=== PATIENT | female | born 1965 | race Caucasian/White ===

== ENCOUNTER 2024-04-13 09:54 | Outpatient (OUT) | payer OTHER, SELFPAY ==
[2024-04-13 11:51] LABS: Basophils Percent Auto 1.3 % (0.2-2.0); Eosinophils Percent Auto 1.3 % (0.9-7.0); Hematocrit 39.5 % (36.0-48.0); Hemoglobin 13.6 g/dL (12.0-16.0); Immature Granulocytes Abs Auto 0.01 10^3/uL (0.00-0.03); Immature Granulocytes Pct Auto 0.3 % (0.0-0.5); Lymphocytes Absolute Auto 1.2 10^3/uL (1.2-3.8); Lymphocytes Percent Auto 38.8 % (20.5-60.0); Mean Corpuscular HGB Conc 34.4 g/dL (29.9-35.2); Mean Corpuscular Hemoglobin 30.5 pg (26.7-34.0); Mean Corpuscular Volume 88.6 fL (81.0-99.0); Mean Platelet Volume 10.4 fL (9.5-13.5); Monocytes Absolute Auto 0.2 10^3/uL (0.3-0.8); Monocytes Percent Auto 7.9 % (1.7-12.0); Neutrophils Absolute Auto 1.5 10^3/uL (1.4-6.5); Neutrophils Percent Auto 50.4 % (43.0-75.0); Platelet Count 177 10^3/uL (150-450); Red Blood Count 4.46 10^6/uL (4.20-5.40); Red Cell Distribution Width 12.2 % (11.0-15.0)
[2024-04-13 12:43] LABS: Estimated Average Glucose 94 mg/dL; Glycohemoglobin A1C 4.9 % (4.5-6.2)
[2024-04-13 12:57] LABS: Alanine Aminotransferase 28 U/L (14-59); Albumin Globulin Ratio 1.2; Albumin Level 3.9 g/dL (3.4-5.0); Alkaline Phosphatase 71 U/L (46-116); Aspartate Amino Transferase 18 U/L (15-37); BUN Creatinine Ratio 17.2; Bilirubin Total 0.9 mg/dL (0.2-1.0); Carbon Dioxide 25.7 mmol/L (21.0-32.0); Chloride 107 mmol/L (98-107); Estimated GFR (African America >60 (>=60); Estimated GFR (Non-African Ame >60 (>=60); Globulin 3.2 g/dL; Glucose 89 mg/dL (74-106); Potassium 3.7 mmol/L (3.5-5.1); Sodium 142 mmol/L (136-145); Thyroid Stimulating Hormone 1.361 uIU/mL (0.358-3.740); Total Protein 7.1 g/dL (6.4-8.2)
[2024-04-14 04:08] LABS: Estradiol 5.7 pg/mL (.); FSH 56.9 mIU/mL (.); Progesterone 0.1 ng/mL (.); Prolactin 4.2 ng/mL (3.6-25.2)
== END 2024-04-13 09:55 | disposition home or self-care (01) ==
PROVIDERS: PCP Family Medicine; Visit Provider Family Medicine
DX: Z00.00 Encounter for general adult medical examination without abnormal findings (principal); L65.9 Nonscarring hair loss, unspecified; I10 Essential (primary) hypertension; I49.8 Other specified cardiac arrhythmias; E78.00 Pure hypercholesterolemia, unspecified; Z12.11 Encounter for screening for malignant neoplasm of colon; R53.82 Chronic fatigue, unspecified; R73.01 Impaired fasting glucose
CPT/HCPCS: 36415; 80053; 82306; 82607; 82670; 82746; 83001; 83036; 84144; 84146; 84436; 84443; 84481; 85025

== ENCOUNTER 2024-05-02 11:13 | Outpatient (OUT) | payer OTHER, SELFPAY ==
--- OUTSIDE RECORDS SUMMARY | 2024-05-02 11:35 | XMS_ITS | CCD ---
Author Organization [facility] Care Team Providers Care Concession Stand Attendant Name Role Phone Tolu Harris Unavailable Bj Wilson MD Primary Care Provider [phone] Bj Wilson MD Unavailable CONG ., DR LORENZO Primary Care Unavailable HOY ., DR LORENZO Consulting Unavailable HOY ., DR LORENZO Admitting Unavailable HOY ., DR LORENZO Attending Unavailable KARASIK ., DR FOSTER Consulting Unavailabl e KARASIK ., DR FOSTER Attending Unavailabl e HOY ., DR LORENZO Primary Care Unavailable KARASIK ., DR FOSTER Admitting Unavailabl e HOY ., DR LORENZO Admitting Unavailable HOY ., DR LORENZO Primary Care Unavailable HOY ., DR LORENZO Consulting Unavailable HOY ., DR LORENZO Attending Unavailable HOY ., DR LORENZO Attending Unavailable HOY ., DR LORENZO Primary Care Unavailable HOY ., DR LORENZO Consulting Unavailable HOY ., DR LORENZO Admitting Unavailable ZIEBER, DR JOHN Zamudio Consulting Unavailable HOY ., DR LORENZO Primary Care Unavailable HOY ., DR LORENZO Consulting Unavailable ROSY CHING Attending Unavailable ROSY CHING Admitting Unavailable TWILA, DR NORMA García Consulting Unavailable ROSY CHING Consulting Unavailable KARCASSIDYK ., DR FOSTER Admitting Unavailabl e KARASIK ., DR FOSTER Consulting Unavailabl e KARASIK ., DR FOSTER Attending Unavailabl e HOY ., DR LORENZO Primary Care Unavailable ZIEBER, DR JOHN Zamudio Consulting Unavailable HOY ., DR LORENZO Attending Unavailable HOY ., DR LORENZO Primary Care Unavailable HOY ., DR LORENZO Consulting Unavailable HOY ., DR LORENZO Admitting Unavailable HOY ., DR LORENZO Attending Unavailable HOY ., DR LORENZO Primary Care Unavailable HOY ., DR LORENZO Consulting Unavailable HOY ., DR LORENZO Admitting Unavailable HOY ., DR LORENZO Attending Unavailable HOY ., DR LORENZO Primary Care Unavailable WEST, DR NORMA García Consulting Unavailable HOY ., DR LORENZO Admitting Unavailable HOY ., DR LORENZO Attending Unavailable HOY ., DR LORENZO Admitting Unavailable HOY ., DR LORENZO Primary Care Unavailable HOY ., DR LORENZO Consulting Unavailable HOY ., DR LORENZO Primary Care Unavailable REINECK, DR JACIEL Ochoa Attending Unavailabl e YADY, DR JACIEL Ochoa Admitting Unavailabl e YADY, DR JACIEL Ochoa Consulting Unavailabl Bj Duckworth MD Primary Care Provider [phone] Bj Wilson MD Unavailable NONE, XXXX Primary Care Physician Unavailab BJ Schwartz Primary Care Unavailable MARIAMA NOONAN Attending Unavailable Bj Wilson Primary Care Physician [phone] Amber, Radha J Attending Unavailable Amber, Radha J Admitting Unavailable Amber, Radha J Attending Unavailable Amber, Radha J Admitting Unavailable Amber, Radha J Admitting Unavailable Amber, Radha J Attending Unavailable Amber, Radha J Admitting Unavailable Amber, Radha J Attending Unavailable Amber, Radha J Referring Unavailable Allergies Allergy Classification Reported Allergen(s) Allergy Type Date of Onset Reaction(s) Facility (4 sources) Morphine; Translations: [MORPHINE] Drug Allergy 01-07-2021 Itching [facility] Work Phone: (1 source) Morphine Drug Allergy 12-03-2020 [facility] Medications Current Medications Medication Drug Class(es) Dates Sig (Normalized) Sig (Original) Vitamin D (1 source) Vitamin D Active Completed/Discontinued Medications Medication Drug Class(es) Dates Sig (Normalized) Sig (Original) alendronic acid 35 mg oral tablet (2 sources) Bisphosphonate Start: 07-17-2021 take 1 tablet by mouth every week alendronate (FOSAMAX) 35 mg tablet Take 35 mg by mouth one time a week. 0 07/17/2021 Active Comment on above: Take 35 mg by mouth one time a week. amitriptyline hydrochloride 10 mg oral tablet (2 sources) Tricyclic Antidepressant Start: 07-31-2021 End: 07-21-2023 take 1 tablet by mouth once daily at bedtime amitriptyline (ELAVIL) 10 mg tablet Take 1 tablet by mouth daily at bedtime. 30 tablet 11 07/31/2021 07/21/2023 Discontinued Comment on above: Take 1 tablet by stephen th daily at bedtime. aspirin 81 mg delayed release oral tablet (4 sources) Platelet Aggregation Inhibitor, Nonsteroidal Anti-inflammatory Drug take 1 tablet by mouth once daily aspirin, enteric coated (ASPIRIN, ENTERIC COATED) 81 mg EC tablet Take 81 mg by mouth once daily. 0 Active Aspirin 81 Activ e Comment on above: Take 81 mg by mouth once daily. Calcium (3 sources) Phosphate Binder, Calcium take 1 tablet by mouth once daily CALCIUM ORAL Take 1 tablet by mouth once daily. 0 Active Comment on above: Take 1 tablet by stephen th once daily. cholecalciferol 0.125 mg oral capsule (3 sources) Vitamin D Start: 11-13-19 21 take 1 capsule by mouth once daily Cholecalciferol, Vitamin D3, 125 mcg (5,000 unit) cap Take 5,000 Units by mouth once daily. 0 11/13/2020 Active Comment on above: Take 5,000 Units by mouth once daily. indomethacin 25 mg oral capsule (3 sources) Nonsteroidal Anti-inflammatory Drug Start: 07-31-20 21 indomethacin (INDOCIN) 25 mg capsule Take 1-3 caps every 8 hours as needed for head pain. Take with food. Do not use with other NSAIDs or steroids. 30 capsule 5 07/31/2021 Active take 1 capsule by mo ut every twelve hours Indomethacin 25 MG 1 capsule with food o r milk Orally Twice a day Active Comment on above: Take 1-3 caps every 8 hours as needed for head pain. Take with food. Do not use with other NSAIDs or steroids. 24 hr PARoxetine hydrochloride 12.5 mg extended release oral tablet (4 sources) Serotonin Reuptake Inhibitor Start: 1 take 1 tablet by mouth once daily PARoxetine ER (PAXIL CR) 12.5 mg 24 hr tablet Take 12.5 mg by mouth once daily. 0 12/16/2020 Active Comment on above: Take 12.5 mg by mout h once daily. tiZANidine 4 mg oral tablet (3 sources) Central alpha-2 Adrenergic Agonist Start: 1 tiZANidine (ZANAFLEX) 4 mg tablet Take 4 mg by mouth as needed. 0 12/30/2020 Active Comment on above: Take 4 mg by mouth a s needed. Problems Active Problems Problem Classification Problem Date Documented Date Episodic/Chronic Aortic; peripheral; and visceral artery aneurysms (4 sources) Dissection of carotid artery; Translations: [Dissection of carotid artery] Onset: 01-23-2021 01-23-2021 Chronic Cardiac dysrhythmias (4 sources) Palpitations; Translations: [PALPITATIONS] Onset: 12-22-2022 Episodic Disorders of lipid metabolism (1 source) Hyperlipidemia, unspecified; Translations: [HYPERLIPIDEMIA UNSPECIFIED] Onset: 03-13-2022 Chronic Essential hypertension (1 source) Essential (primary) hypertension; Translations: [ESSENTIAL PRIMARY HYPERTENSION] Onset: 02-24-2022 Chronic Headache; including migraine (5 sources) New daily persistent headache; Translations: [New daily persistent headache (NDPH)] Onset: 01-23-2021 01-23-2021 Chronic Immunizations and screening for infectious disease (2 sources) Encounter for screening for human papillomavirus (HPV); Translations: [Encounter for immunization] Onset: 02-24-2022 Episodic Mood disorders (1 source) Major depressive disorder, single episode, unspecified; Translations: [CECILIA DEPRESS D/O SINGLE EPIS UNS] Onset: 02-24-2022 Chronic Nutritional deficiencies (1 source) Vitamin D deficiency, unspecified; Translations: [VITAMIN D DEFICIENCY UNSPECIFIED] Onset: 03-13-2022 Chronic Other and unspecified benign neoplasm (3 sources) Neoplasm of meninges; Translations: [Benign neoplasm of meninges, unspecified] 01-07-2021 Chronic Other screening for suspected conditions (not mental disorders or infectious disease) (8 sources) Encounter for screening for malignant neoplasm of cervix; Translations: [Encounter for screening mammogram for malignant neoplasm of breast] Onset: 04-27-2022 Episodic Unclassified (3 sources) CONTACT W/AND (SUSP) EXPOS COVID-19; Translations: [CONTACT W/AND (SUSP) EXPOS COVID-19] Onset: 02-13-2022 Viral infection (1 source) COVID-19; Translations: [COVID-19] Onset: 07-31-2022 Past or Other Problems Problem Classification Problem Date Documented Da te Episodic/Chronic Abdominal pain (8 sources) Pelvic and perineal pain; Translations: [Right lower quadrant pain] Onset: 05-22-2022 Episodic Deficiency and other anemia (1 source) Anemia, unspecified; Translations: [ANEMIA UNSPECIFIED] Onset: 03-13-2022 Episodic E Codes: Cut/pierceb (1 source) Other foreign body or object entering through skin, initial encounter; Translations: [OTH FB/OBJ ENTERING THRU SKIN INIT] Onset: 02-24-2022 Episodic Fever of unknown origin (1 source) Fever, unspecified; Translations: [FEVER UNSPECIFIED] Onset: 02-13-2022 Episodic Genitourinary symptoms and ill-defined conditions (1 source) Personal history of urinary (tract) infections; Translations: [PERS HX URINARY TRACT INFECTIONS] Onset: 02-24-2022 Episodic Headache; including migraine (16 sources) Headache disorder; Translations: [Other headache syndrome] Onset: 01-23-2021 01-23-2021 Episodic Malaise and fatigue (1 source) Other fatigue; Translations: [OTHER FATIGUE] Onset: 03-13-2022 Episodic Open wounds of extremities (4 sources) Puncture wound with foreign body of right middle finger without damage to nail, initial encounter; Translations: [PUNCT FB RT MID FNGR NO DMG NL INIT] Onset: 02-21-2022 Episodic Other aftercare (1 source) terminal carman (current) use of aspirin; Translations: [PRISON CURRENT USE OF ASPIRIN] Onset: 02-24-2022 Episodic Other aftercare (1 source) Other technician terminal and repeater (current) drug therapy; Translations: [OTH PRISON CURRENT DRUG THERAPY] Onset: 02-24-2022 Episodic Other connective tissue disease (1 source) Ganglion, left wrist Onset: 09-25-2021 Resolved: 09-25-2021 Episodic Other non-traumatic joint disorders (1 source) Pain in left wrist Onset: 09-25-2021 Resolved: 09-25-2021 Episodic Other non-traumatic joint disorders (4 sources) Pain in right hip; Translations: [PAIN IN RIGHT HIP] Onset: 05-21-2022 Episodic Residual codes; unclassified (1 source) Family history of malignant neoplasm of trachea, bronchus and lung; Translations: [FAM HX MALIG NEOPLSM TRACH BRON LNG] Onset: 04-29-2022 Episodic Residual codes; unclassified (1 source) Family history of malignant neoplasm of other organs or systems; Translations: [FAM HX MALIG NEOPLASM OTH ORGN/SYS] Onset: 04-29-2022 Episodic Residual codes; unclassified (1 source) Pain, unspecified; Translations: [PAIN UNSPECIFIED] Onset: 02-13-2022 Episodic Spondylosis; intervertebral disc disorders; other back problems (3 sources) Cervico-occipital neuralgia; Translations: [Occipital neuralgia] Onset: 01-23-2021 01-23-2021 Episodic Unclassified (1 source) CONTACT W/AND (SUSP) EXPOS COVID-19; Translations: [CONTACT W/AND (SUSP) EXPOS COVID-19] Onset: 07-30-2022 Results Test Name Value Interpretation Reference Range Facility PAP [id number] 02-01-2024 Cytology report Cyto stain Doc (Cvx/Vag) Note Invalid Interpretation Code [facility] Comment on above: Result Comment: TEST S RESULT FLAG UNITS REF RANGE LAB Clinician Provided Cytology Information Source.............Endocervix LMP / Prev Treat...None Other..............Other No. of containers..01 ThinPrep Vial DIAGNOSIS: 01 NEGATIVE FOR INTRAEPITHELIAL LESION OR MALIGNANCY. CELLULAR CHANGES ASSOCIATED WITH ATROPHY ARE PRESENT. Specimen adequacy: 01 Satisfactory for evaluation. Endocervical component may not be distinguished in cases of atrophy. Performed by: Radha Mendenhall Sales Product Manager (ASC) . 01 Note: Note 01 The Pap smear is a screening test designed to aid in the detection of premalignant and malignant conditions of the uterine cervix. It is not a diagnostic procedure and should not be used as the sole means of detecting cervical cancer. Both false-positive and false-negative reports do occur. Test Methodology: Note 01 This liquid based ThinPrep(R) pap test was screened with the use of an image guided system. FLAG LEGEND: L-Low Normal,H-High Normal,LL-Alert Low,HH-Alert High <-Panic Low,>-Panic High,A-Abnormal,AA-Critical Abnormal Performed at: [address] [id number] Suzan Bauer MD, Performed By: #### 3 [id number] #### [facility] [address] [place] [address] HPV 16+18+31+33+35+39+45+ 51+52+56+58+59+66+68 DNA Probe+sig amp Ql (Cvx) Negative Invalid Interpretation Code Negative [facility] Comment on above: Result Comment: This nucleic acid amplification test detects fourteen high-risk HPV types (16,18,31,33,35,39,45,51,52,56,58,59,66,68) without differentiation. Performed at: [address] [id number] MD Juancarlos Mares Performed at: =[facility] [id number] MD Juancarlos Mares Performed By: #### 3 [id number] #### [facility] [address] [place] [address] PAP [id number] 01-26-2024 Collection Technique BRUSH-SPATULA Normal F [facility] Comment on above: Performed By: #### 3 [id number] #### [facility] [address] [place] [address] Gynecological Body Site ENDOCERVIX Normal [facility] Comment on above: Performed By: #### 3 [id number] #### [facility] [address] [facility] [place] [address] Other Patient Information [id number] Normal [facility] Comment on above: Performed By: #### 3 [id number] #### [facility] [address] [place] [address] Previous Cytology Negative Normal [facility] Comment on above: Performed By: #### 3 [id number] #### [facility] [address] [facility] [place] [address] Previous Treatment NONE Normal [facility] Comment on above: Performed By: #### 3 [id number] #### [facility] [address] [facility] [place] [address] Physician Orderon 01-26-2024 Physician Order [id number] 7#1.00TIFF Normal [facility] CHEMISTRYOrdered By: SYSTEM SYSTEM on 08-23-2023 25-hydroxyvitamin D3 [Mass/Vol] 54.9 ng/mL Normal 30.0 - 100.0 ng/mL [facility] Comment on above: Interpretive Data: Vitamin D deficiency has been defined as a level of serum 25-OH vitamin D less than 20 ng/mL (1,2) by the [place] [employer] and an Endocrine Society practice guideline. The Endocrine Society further defined vitamin D insufficiency as a level between 21 and 29 ng/mL (2). 1. IOM ([place] of [employer]). 2010. Dietary reference intakes for calcium and D. [place]: The National Academies Press. 2. Jamime MF, Matthew NC, Geovanna STALEY, et al. Evaluation, treatment, and prevention of vitamin D deficiency: an Endocrine Society clinical practice guideline. JCEM. 2010; 96 (7):1911-30. Calcium [Mass/Vol] 9.6 mg/dL Normal 8.9 - 11. 1 mg/dL [facility] Cholesterol [Mass/Vol] 257 mg/dL High 120 - 200 mg/dL [facility] Cholesterol in HDL [Mass/Vol] 43 mg/dL Invalid Interpretation Code [facility] Comment on above: Interpretive Data: H DL > or equal to 60 mg/dL: Low cardiovascular risk HDL < 40 mg/dL : High cardiovascular risk Cholesterol in LDL [Mass/Vol] 175 mg/dL High <=129mg/dL [facility] Cholesterol in VLDL [Mass/Vol] 45 mg/dL High 7 - 40 mg/dL [facility] Creatinine [Mass/Vol] 0.9 mg/dL Normal 0.5 - 1.3 mg/dL [facility] GFR/1.73 sq M.predicted among non-blacks MDRD (S/P/Bld) [Vol rate/Area] 75 mL/min/1.73 m2 Normal >=59mL/min/1. 73 m2 [facility] Comment on above: Interpretive Data: C hronic kidney disease could be indicated at eGFR's of less than 60 mL/min/1.73m2. Kidney failure is indicated at less than 15 mL/min/1.73m2. Glucose post fast [Mass/Vol] 92 mg/dL Normal 55 - 99 mg/dL [facility] Triglyceride [Mass/Vol] 224 mg/dL High <=149mg/dL [facility] TSH Qn 2.36 m[IU]/L Normal 0.34 - 5.60 mcIU/mL [facility] Calciumon 08-23-2023 Calcium [Mass/Vol] 9.6 mg/dL Normal 8.9-11.1 [facility] Comment on above: Performed By: #### 2 [id number], [id number], 8385519, [id number], [id number], [id number], 9267031 #### [facility] [address] [place] [address] Consent for Treatmenton 08-08 Consent for Treatment [id number] #1.00TIFF Normal [facility] Creatinineon 08-23-2023 Creatinine [Mass/Vol] 0.9 mg/dL Normal 0.5-1.3 [facility] Comment on above: Performed By: #### 2 363760, [id number], 7596027, 96022422, [id number], [id number], [id number] #### [facility] [address] [place] [address] Glu Fastingon 08-23-2023 Glucose [Mass/Vol] 92 mg/dL Normal 55-99 [facility] Comment on above: Performed By: #### 2 272643, 6709372, 9126506, [id number], [id number], 6741094, [id number] #### [facility] [address] [place] [address] Lipid Panelon 08-23-2023 Cholesterol [Mass/Vol] 257 mg/dL High 120-200 [facility] Comment on above: Performed By: #### 2 309431, 7198407, 0232345, [id number], [id number], 7472094, 0348267 #### [facility] [address] [place] [address] Cholesterol in HDL [Mass/Vol] 43 mg/dL Invalid Interpretation Code [facility] Comment on above: Result Comment: HDL > or equal to 60 mg/dL: Low cardiovascular risk HDL < 40 mg/dL : High cardiovascular risk Performed By: #### 2 082324, [id number], 5904511, 16271268, [id number], 0331707, 9065258 #### [facility] [address] [place] [address] Cholesterol in LDL [Mass/Vol] 175 mg/dL High <=129 [facility] Comment on above: Performed By: #### 2 648451, 7750975, 9196409, 79352441, [id number], 5810235, 4005842 #### [facility] [address] [place] [address] Cholesterol in VLDL [Mass/Vol] 45 mg/dL High 7-40 [facility] Comment on above: Performed By: #### 2 441096, 6534599, 8929706, 83943152, [id number], 7966636, 5294584 #### [facility] [address] [place] [address] Triglyceride [Mass/Vol] 224 mg/dL High <=149 [facility] Comment on above: Performed By: #### 2 177966, 5408269, 7638065, [id number], [id number], 0769210, 4084563 #### [facility] [address] [place] [address] Physician Orderon 08-23-2023 Physician Order [id number] 7#1.00TIFF Normal [facility] TSHon 08-23-2023 TSH Qn 2.36 m[IU]/L Normal 0.34-5.60 [facility] Comment on above: Performed By: #### 2 789594, 8159837, 4322409, 07232132, [id number], 3002146, 7406419 #### [facility] [address] [place] [address] Vitamin D 25 Hydroxyon 08-23 25-hydroxyvitamin D3 [Mass/Vol] 54.9 ng/mL Normal 30.0-100.0 [facility] Comment on above: Result Comment: Vit min D deficiency has been defined as a level of serum 25-OH vitamin D less than 20 ng/mL (1,2) by the [place] [employer] and an Endocrine Society practice guideline. The Endocrine Society further defined vitamin D insufficiency as a level between 21 and 29 ng/mL (2). 1. IOM ([place] [employer]). 2010. Dietary reference intakes for calcium and D. [place]: The National Academies Press. 2. Jammie MF, Matthew NC, Geovanna STALEY, et al. Evaluation, treatment, and prevention of vitamin D deficiency: an Endocrine Society clinical practice guideline. JCEM. 2011 May; 96 (7):1911-30. Performed By: #### 2 [id number], 5743360, 0046190, 00593654, [id number], 3635347, 3426107 #### [facility] [address] [place] [address] eGFRon 08-23-2023 GFR/1.73 sq M.predicted among non-blacks MDRD (S/P/Bld) [Vol rate/Area] 75 mL/min/1.73 m2 Normal >=59 [facility] Comment on above: Order Comment: Order added by Discern Expert. Result Comment: Sheriff Sergeant jeanna kidney disease could be indicated at eGFR's of less than 60 mL/min/1.73m2. Kidney failure is indicated at less than 15 mL/min/1.73m2. Performed By: #### 2 672797, 7231526, 2961873, 24477865, [id number], 9967578, 3213520 #### [facility] [address] [place] [address] MA Mamm Screen w/CAD if perf and 3D Bilon 08-09-2023 MA Mamm Screen w/CAD if perf and 3D Shakeel Exam Date/Time: 08/04/2023 08:44 EDT Reason for Exam: Z12.31 Report IMPRESSION: BIRADS 2 BENIGN FINDINGS, NORMAL INTERVAL FOLLOW-UP.12 MONTH RECALL. CLINICAL HISTORY: Z12.31. COMPARISON: 04/27/2022. COMMENT: Routine views and tomosynthesis views of both breasts were obtained. The breasts are heterogeneously dense, which may obscure small masses. There is an ovoid nodule with smoothly rounded margin in the mid left breast, stable in appearance. A nodular density that was present in the anterior mid right breast on the prior exam is no longer visualized. No dominant breast mass nor neoplastic calcifications are noted. The examination was reviewed with Computer Aided Detection. Breast Density: Yes Mammography is very important to your health. The current [employer] and National Comprehensive Cancer Network guidelines recommends annual mammography beginning at age 40. This facility utilizes a reminder system to ensure all patients receive reminder notifications at the appropriate time based on the recommendations of this exam. Board Certified Radiologists. Accredited by the ACR and FDA. Ordering Provider: Radah Clark FINAL REPORT Dictated: 08/09/2023 2:12 pm Cliff Zuleta M.D. Signed (Electronic Signature): 08/09/2023 2:12 pm Signed by: Cliff Zuleta M.D. Transcribed by: ERIK Technologist: [facility] Assessment: BI-RADS Category 2-Benign finding Recommendation: Normal interval follow-up Normal [facility] BD Bone Density DEXAon 08-04 BD Bone Density DEXA Exam Date/Time: 08/04/2023 09:04 EDT Reason for Exam: Z13.820 Report IMPRESSION: The bone density measurements of the lumbar spine indicate OSTEOPENIA and places the patient at a mild to moderate increased risk for fracture. There may be a future risk of developing osteoporosis. Recommend follow-up exam in one year, sooner if clinically necessary. CLINICAL HISTORY: bone density evaluation COMPARISON: NONE. FINDINGS: Bone density measurements for the Left femoral neck are BMD 0.938g/cm2 Tscore -0.7 Age-matched Z score 0.2, Normal Bone density measurements for the Right femoral neck are BMD 0.921g/cm2 Tscore -0.8 Age-matched Z score 0.1, Normal Bone density measurements for the Lumbar spine are BMD 0.909g/cm2 Tscore -2.3 Age-matched Z score -1.5, Osteopenia FRAX SCORE 10 year probability of fracture: Major osteoporotic, 5.8% Hip fracture, 0.2% Note World Health Organization definition of osteoporosis and osteopenia for women: Normal = T score at or above -1.0 SD Osteopenia = T score between -1.0 and -2.5 SD Osteoporosis = T score at or below -2.5 SD Treatment recommendations per The Bone Health and Osteoporosis Foundation (BHOF): Consider initiating pharmacologic treatment in postmenopausal women and men \X2265\ 50 years of age who have the following: \X2013\Primary fracture prevention: \X25CB\T-score \X2264\ \X2212\ 2.5 at the femoral neck, total hip, lumbar spine, 33% radius (some uncertainty with existing data) by DXA. Report \X25CB\Low bone mass (osteopenia: T-score between \X2212\ 1.0 and \X2212\ 2.5) at the femoral neck or total hip by DXA with a 10-year hip fracture risk \X2265\ 3% or a 10-year major osteoporosis-related fracture risk \X2265\ 20% (i.e., clinical vertebral, hip, forearm, or proximal humerus) based on the [place]-adapted FRAX\XAE\ model. \X2013\Secondary fracture prevention: \X25CB\Fracture of the hip or vertebra regardless of BMD [4, 5]. \X25CB\Fracture of proximal humerus, pelvis, or distal forearm in persons with low bone mass (osteopenia: T-score between \X2212\ 1.0 and \X2212\ 2.5). The decision to treat should be individualized in persons with a fracture of the proximal humerus, pelvis, or distal forearm who do not have osteopenia or low BMD [12, 13]. Ordering Provider: Radha Clark FINAL REPORT Dictated: 08/04/2023 4:25 pm Harry Jenkins MD, V. Signed (Electronic Signature): 08/04/2023 4:25 pm Signed by: Harry Jenkins MD, V. Transcribed by: ERIK Technologist: YONNY Normal [facility] Consent for Treatmenton 07-10 Consent for Treatment [id number] #1.00CD:127 Normal [facility] RAD - Mammography Reporton 0 08-03-2023 RAD - Mammography Report [id number]# 1.00CD:127 Normal [facility] PAP [id number] 07-26-2023 Cytology report Cyto stain Doc (Cvx/Vag) Note Invalid Interpretation Code [facility] Comment on above: Result Comment: TEST S RESULT FLAG UNITS REF RANGE LAB Clinician Provided Cytology Information Source.............Endocervix LMP / Prev Treat...BUF=[id number] No. of containers..01 ThinPrep Vial DIAGNOSIS: 01 NEGATIVE FOR INTRAEPITHELIAL LESION OR MALIGNANCY. Specimen adequacy: 01 Satisfactory for evaluation. Endocervical and/or squamous metaplastic cells (endocervical component) are present. Performed by: 01 Liz Viera, Sales Product Manager (ASCP) . 01 Note: Note 01 The Pap smear is a screening test designed to aid in the detection of premalignant and malignant conditions of the uterine cervix. It is not a diagnostic procedure and should not be used as the sole means of detecting cervical cancer. Both false-positive and false-negative reports do occur. Test Methodology: Note 01 This liquid based ThinPrep(R) pap test was screened with the use of an image guided system. FLAG LEGEND: L-Low Normal,H-High Normal,LL-Alert Low,HH-Alert High <-Panic Low,>-Panic High,A-Abnormal,AA-Critical Abnormal Performed at: [address] [id number] Suzan Bauer MD, Performed By: #### 3 [id number] #### [facility] [address] [place] [address] HPV 16+18+31+33+35+39+45+ 51+52+56+58+59+66+68 DNA Probe+sig amp Ql (Cvx) Negative Invalid Interpretation Code Negative [facility] Comment on above: Result Comment: This nucleic acid amplification test detects fourteen high-risk HPV types (16,18,31,33,35,39,45,51,52,56,58,59,66,68) without differentiation. Performed at: WB [address] [id number] MD Juancarlos Mares Performed at: =G [address] [id number] MD Juancarlos Mares Performed By: #### 3 [id number] #### [facility] [address] [place] [address] [place] [address] PAP [id number] 07-21-2023 Collection Technique BRUSH-SPATULA [facility] Comment on above: Performed By: #### 3 [id number] #### [facility] [address] [place] [address] Gynecological Body Site ENDOCERVIX Normal [facility] Comment on above: Performed By: #### 3 [id number] #### [facility] [address] [place] [address] LMP or Menopause Date [id number] Invalid Interpretation Code [facility] Comment on above: Performed By: #### 3 [id number] #### [facility] [address] [place] [address] Previous Cytology Negative Normal [facility] Comment on above: Performed By: #### 3 [id number] #### [facility] [address] [place] [address] Previous Treatment NONE Normal [facility] Comment on above: Performed By: #### 3 [id number] #### [facility] [address] [place] [address] Physician Orderon 07-21-2023 Physician Order [id number] #1.00CD:127 Normal [facility] Physician Order [id number]# 1.00CD:127 Normal [facility] PAP ACOG PANEL 2: 30 to 65on 12-01-2022 . . [facility] Comment on above: Result Comment: Perf ormed at: WB Performed By: #### 4 [id number] #### [facility] [address] [address] [address] Eugenia Osei Age Gdln ACOG Testing - [facility] Comment on above: Performed By: #### 4 [id number] #### [facility] [address] [address] [address] Eugenia Osei DIAGNOSIS: Comment [facility] Comment on above: Result Comment: NEGA TIVE FOR INTRAEPITHELIAL LESION OR MALIGNANCY. CELLULAR CHANGES ASSOCIATED WITH ATROPHY ARE PRESENT. Performed at: WB Performed By: #### 4 [id number] #### [facility] [address] [place] [address] Dr. Eugenia Osei HPV Aptima Positive Abnormal Negative [facility] Comment on above: Result Comment: This nucleic acid amplification test detects fourteen high-risk HPV types (16,18,31,33,35,39,45,51,52,56,58,59,66,68) without differentiation. Performed at: =G Performed By: #### 4 [id number] #### [facility] [address] [place] [address] Dr. Eugenia Osei HPV Genotype 16 Negative Normal Negative [facility] Comment on above: Performed By: #### 4 [id number] #### [facility] [address] [place] [address] Dr. Eugenia Osei HPV Genotype 18,45 Negative Normal Negative [facility] Comment on above: Performed By: #### 4 [id number] #### [facility] [address] [place] [address] Dr. Eugenia Osei HPV Genotype Reflex Comment Normal [facility] Comment on above: Result Comment: Obi cali, see HPV Genotype results. Performed at: WB Performed By: #### 4 [id number] #### [facility] [address] [place] [address] Dr. Eugenia Osei Methodology: Comment Normal [facility] Comment on above: Result Comment: This liquid based ThinPrep(R) pap test was screened with the use of an image guided system. Performed at: WB Performed By: #### 4 [id number] #### [facility] [address] [place] [address] Dr. Eugenia Osei Note: Comment Normal [facility] Comment on above: Result Comment: The Pap smear is a screening test designed to aid in the detection of premalignant and malignant conditions of the uterine cervix. It is not a diagnostic procedure and should not be used as the sole means of detecting cervical cancer. Both false-positive and false-negative reports do occur. . Performed at: WB Performed By: #### 4 [id number] #### [facility] [address] [address] [address] Eugenia Osei Performed by: Comment Normal [facility] Comment on above: Result Comment: Amol Baker Sales Product Manager (ASCP) Performed at: WB Performed By: #### 4 [id number] #### [facility] [address] [place], [place] [address] Dr. Eugenia Osei Specimen adequacy: Comment Normal [facility] Comment on above: Result Comment: Sati sfactory for evaluation. Endocervical component may not be distinguished in cases of atrophy. Performed at: WB Performed By: #### 4 [id number] #### [facility] [address] [address] [address] Eugenia Osei Covid-19 PCR ([facility])on 07-10 SARS-CoV-2 (COVID-19) RNA KELLI+probe Ql (Unsp spec) Detected Critically abnormal NOT DETECTED [facility] Comment on above: Result Comment: This test is not yet approved or cleared by the [place] FDA. When there are no FDA-approved or cleared tests available, and other criteria are met, FDA can make tests available under an emergency access mechanism called an Emergency Use Authorization (EUA). The EUA for this test is supported by the [employer] of Health and Human Service's (HHS's) declaration that circumstances exist to justify the emergency use of in vitro diagnostics for the detection and/or diagnosis of the virus that causes COVID-19. This EUA will remain in effect (meaning this test can be used) for the duration of the COVID-19 declaration justifying emergency of IVDs, unless it is terminated or revoked by FDA (after which the test may no longer be used). Performed By: #### C VDTBH #### [facility] [address] [id number] Eugenia Oesi US PELVIS AND TRANSVAGon US PELVIS AND TRANSVAG EXAMINATION: US PELVIS AND TRANSVAG HISTORY: Pain in pelvis for 3 weeks COMPARISON: CT abdomen pelvis 05/22/2022 TECHNIQUE: Transabdominal and transvaginal sonographic examination. FINDINGS: UTERUS: Normal size and appearance. Uterus size: 6.5 x 4.2 x 2.7 cm ENDOMETRIUM: Normal homogeneous appearance. Endometrial thickness: 2 mm RIGHT OVARY: Not seen. Loops of fluid-filled, but not significantly dilated bowel within right adnexa. LEFT OVARY: Contains a 1.3 cm cyst. Blood flow present within ovary on color Doppler. Ovary size: 2.0 x 1.9 x 1.9 cm CUL-DE-SAC: Unremarkable. No significant free fluid. BLADDER: Unremarkable. OTHER: None. IMPRESSION: 1. No specific findings to account for patient's symptoms. 2. Patient describes right pelvic pain. The right ovary could not be identified. There are a few fluid-filled, but not significantly distended loops of bowel within right adnexa. Consider follow-up CT imaging if symptoms persist, although the 05/22/2022 CT study of the abdomen and pelvis was unremarkable. Electronically authenticated by: JOHN HAJI Date: 2022-05-31 08:32 Normal [facility] [address] ABD/PELV WO W CONon 05-22 CT ABD/PELV WO W CON EXAMINATION: CT ABD/PELV WO W CON, 05/22/2022 1:47 PM EDT HISTORY: Right lower quadrant pain , hematuria COMPARISON: 12/03/2020 TECHNIQUE: CT scan of the abdomen and pelvis was performed without and with IV contrast. CT dose reduction technique was used, including Automated Exposure Control. FINDINGS: LUNG BASES: No visible pulmonary or pleural disease. LIVER: No enlargement, atrophy, abnormal density, or significant focal lesion. BILIARY: No dilatation or calcification. PANCREAS: No lesion, fluid collection, ductal dilatation, or atrophy. SPLEEN: No enlargement or focal lesion. ADRENALS: No mass or enlargement. KIDNEYS: No mass, obstruction, or calcification. BOWEL/MESENTERY: No visible mass, obstruction, or bowel wall thickening. AORTA/VASCULAR: No aneurysm or dissection. RETROPERITONEUM: No mass or adenopathy. LYMPH NODES: No adenopathy. URINARY BLADDER: No visible focal wall thickening, lesion, or calculus. PELVIC ORGANS: No visible mass. Pelvic organs appropriate for patient age. ABDOMINAL WALL: No mass or hernia. BONES: No bony lesion or fracture. OTHER: Negative. IMPRESSION: No obstructive uropathy No acute intraperitoneal abnormality Electronically authenticated by: NORMA MATTSON Date: 2022-05-22 15:52 Normal [facility] CULTURE URINEon 05-22-2022 CULTURE URINE Culture Observations: NO GROWTH. Normal [facility] Comment on above: Performed By: #### U RCX ####[facility] [address] [address]. Eugenia Osei UA RANDOM W/MICROSCOPICon BACTERIA NONE SEEN Normal NONE SEEN [facility] Comment on above: Performed By: #### U AMIC #### [facility] [address] [address] [address] Eugenia Osei Bilirubin Ql (U) Negative Normal NEGATIVE [facility] Comment on above: Performed By: #### U AMIC #### [facility] [address] [place] [address] Dr. Eugenia Osei CAST NONE SEEN Normal NONE SEEN [facility] Comment on above: Performed By: #### U AMIC #### [facility] [address] [place] [address] Dr. Eugenia Osei Clarity (U) CLEAR Normal CLEAR [facility] Comment on above: Performed By: #### U AMIC #### [facility] [address] [place] [address] Dr. Eugenia Osei Color (U) LT. YELLOW Normal YELLOW [facility] Comment on above: Performed By: #### U AMIC #### [facility] [address] [place] [address] Dr. Eugenia Osei Crystals LM Nom (Urine sed) NONE SEEN Normal NONE SEEN [facility] Comment on above: Performed By: #### U AMIC #### [facility] [address] [place] [address] Dr. Eugenia Osei Epithelial cells LM Ql (Urine sed) RARE Normal NONE SEEN /RARE [facility] Comment on above: Performed By: #### U AMIC #### [facility] [address] [place] [address] Dr. Eugenia Osei Glucose Ql (U) Negative Normal NEGATIVE [facility] Comment on above: Performed By: #### U AMIC #### [facility] [address] [place] [address] Dr. Eugenia Osei Hemoglobin Ql (U) TRACE-INTACT Abnormal NEGATIVE [facility] Comment on above: Performed By: #### U AMIC #### [facility] [address] [place] [address] Dr. Eugenia Osei Ketones Ql (U) Negative Normal NEGATIVE [facility] Comment on above: Performed By: #### U AMIC #### [facility] [address] [place] [address] Dr. Eugenia Osei LEUKOCYTES Negative Normal NEGATIVE [facility] Comment on above: Performed By: #### U AMIC #### [facility] [address] [place] [address] Dr. Eugenia Osei MUCOUS NONE SEEN Normal NONE SEEN [facility] Comment on above: Performed By: #### U AMIC #### [facility] [address] [place] [address] Dr. Eugenia Osei Nitrite Ql (U) Negative Normal NEGATIVE [facility] Comment on above: Performed By: #### U AMIC #### [facility] [address] [place] [address] Dr. Eugenia Osei pH (U) 6.5 [pH] Normal 5-9 [facility] Comment on above: Performed By: #### U AMIC #### [facility] [address] [place] [address] Dr. Eugenia Osei RBC 0-2 Normal 0-2 [facility] Comment on above: Performed By: #### U AMIC #### [facility] [address] [place] [address] Dr. Eugenia Osei SPEC GRAVITY <=1.005 Abnormal 1.005-<=1.[address] [facility] Comment on above: Performed By: #### U AMIC #### [facility] [address] [place] [address] Dr. Eugenia Osei UA PROTEIN Negative Normal NEGATIVE/ TRACE [facility] Comment on above: Performed By: #### U AMIC #### [facility] [address] [place] [address] Dr. Eugenia Osei Urobilinogen Qn (U) 0.2 {Amber'U}/dL Normal 0.2 - 1. 0 [facility] Comment on above: Performed By: #### U AMIC #### [facility] [address] [place], [place] [address] Dr. Eugenia Osei WBC NONE SEEN Normal NONE SEEN [facility] Comment on above: Performed By: #### U AMIC #### [facility] [address] [place], [place] [address] Dr. Eugenia Osei MG MAMM SCREEN 3D SHAKEEL CADon 04-27-2022 MG MAMM SCREEN 3D SHAKEEL CAD Patient: NIC CONROY Exam Date: 04/27/2022 : 1965 Gender:F Ordering : DR CRISTIAN ARELLANO . Admission #: [id number] Family : Order #: [id number] CLICK HERE TO VIEW EXAM RADIOLOGY REPORT PROCEDURE: MAMMOGRAM SCREENING 3D BILATERAL CAD COMPARISON: MG MAMM SCREEN 3D SHAKEEL CAD, 04/22/2021. MG MAMM SHAKEEL DIAG W CAD, 03/26/2020. INDICATIONS: Screening mammography Calculator Name NCI Breast Cancer Risk Assessment Tool 5 Year Breast Cancer Risk 1.30% Lifetime Breast Cancer Risk 9.30% Personal Breast Cancer No Personal Ovarian Cancer No Treatments None Family Cancers Mother with lung/brain cancer at age 57; Father with esophageal/liver cancer at age 60. LOCATION: [facility] BREAST COMPOSITION: Heterogeneously dense,which may obscure small masses. FINDINGS: DIAGNOSTIC CATEGORY 2--BENIGN FINDING: RIGHT BREAST: No significant suspicious finding. Scattered benign-appearing lymph nodes /nodules and cysts are present. No significant change has occurred. LEFT BREAST: No significant suspicious finding. Scattered benign-appearing lymph node/nodules and cysts are present. No significant change has occurred. RECOMMENDATIONS: ROUTINE MAMMOGRAM AND CLINICAL EVALUATION IN 12 MONTHS. PLEASE NOTE: A NORMAL MAMMOGRAM DOES NOT EXCLUDE THE POSSIBILITY OF BREAST CANCER. A CLINICALLY SUSPICIOUS PALPABLE LUMP SHOULD BE BIOPSIED. Dictated by: John Haji M.D. on 04/27/2022 at 11:26 Approved by: John Haji M.D. on 04/27/2022 at 11:34 Normal [facility] OCC BLD IMMUNO SCREENon 05-0 OCCULT BLOOD Negative Normal NEGATIVE [facility] Comment on above: Performed By: #### O BSCRN #### [facility] [address] [place], [place] [address] Dr. Eugenia Osei CBC AUTO DIFFon 03-10-2022 BASO # 0.0 103/ul Normal 0.0-0.1 [facility] Comment on above: Performed By: #### C BC ####[facility] [address] [id number] Osei Basophils/100 WBC (Bld) 0.8 % Normal 0.2-2.0 [facility] Comment on above: Performed By: #### C BC ####[facility] [address] [address]DrKael Osei EO # 0.1 103/ul Normal 0.0-0.7 [facility] Comment on above: Performed By: #### C BC ####[facility] [address] [address]DrKael Osei Eosinophils/100 WBC (Bld) 1.6 % Normal 0.9-7.0 [facility] Comment on above: Performed By: #### C BC ####[facility] [address] [address]DrKael Osei Erythrocyte distribution width (RBC) [Ratio] 12.3 % Normal 11.0-15.0 [facility] Comment on above: Performed By: #### C BC ####[facility] [address] [address]DrKael Osei Hematocrit (Bld) [Volume fraction] 42.5 % Normal 36.0-48.0 [facility] Comment on above: Performed By: #### C BC ####[facility] [address] [phone] Osei Hemoglobin (Bld) [Mass/Vol] 14.2 g/dL Normal 12.0-16.0 [facility] Comment on above: Performed By: #### C BC ####[facility] [address] [phone] Osei IG # 0.01 10e3/ul Normal 0.00-0.03 [facility] Comment on above: Performed By: #### C BC ####[facility] [address] [address]Dr. Eugenia Osei IG % 0.3 % Normal 0.0-0.5 [facility] Comment on above: Performed By: #### C BC ####[facility] [address] [address]Dr. Eugenia Osei LYMPH # 1.4 103/ul Normal 1.2-3.8 [facility] Comment on above: Performed By: #### C BC ####[facility] [address] [address]Dr. Eugenia Osei Lymphocytes/100 WBC (Bld) 38.1 % Normal 20.5-60.0 [facility] Comment on above: Performed By: #### C BC ####[facility] [address] [place], [place] [address]Dr. Eugenia Oesi MANUAL DIFF REQ NO Normal [facility] Comment on above: Performed By: #### C BC ####[facility] [address] [phone]. Eugenia Osei MCH (RBC) [Entitic mass] 30.2 pg Normal 26.7-34.0 [facility] Comment on above: Performed By: #### C BC ####[facility] [address] [address]Dr. Eugenia Osei MCHC (RBC) [Mass/Vol] 33.4 g/dL Normal 29.9-35.2 [facility] Comment on above: Performed By: #### C BC ####[facility] [address] [place], [place] [id number] Osei MCV (RBC) [Entitic vol] 90.4 fL Normal 81.0-99.0 [facility] Comment on above: Performed By: #### C BC ####[facility] [address] [place], [place] [address]DrKael Osei MONO # 0.3 103/ul Normal 0.3-0.8 [facility] Comment on above: Performed By: #### C BC ####[facility] [address] [phone]. Eugenia Osei Monocytes/100 WBC (Bld) 7.1 % Normal 1.7-12.0 [facility] Comment on above: Performed By: #### C BC ####[facility] [address] [phone]. Eugenia Osei NEUT # 1.9 103/ul Normal 1.4-6.5 [facility] Comment on above: Performed By: #### C BC ####[facility] [address] [place] [phone]. Eugenia Osei Neutrophils/100 WBC (Bld) 52.1 % Normal 43.0-75.0 [facility] Comment on above: Performed By: #### C BC ####[facility] [address] [place] [phone]. Eugenia Osei Platelet mean volume (Bld) [Entitic vol] 9.5 fL Normal 9.5-13.5 [facility] Comment on above: Performed By: #### C BC ####[facility] [address] [place] [address] [phone]. Eugenia Osei PLT 225 103/ul Normal 150-450 [facility] Comment on above: Performed By: #### C BC ####[facility] [address] [place] [address] [phone]. Eugenia Osei RBC 4.70 106/ul Normal 4.20-5.40 [facility] Comment on above: Performed By: #### C BC ####[facility] [address] [place] [phone]. Eugenia Osei WBC 3.7 103/ul Critically low 4.0-11.0 [facility] Comment on above: Performed By: #### C BC ####[facility] [address] [place] [phone]. Eugenia Osei FREE T3on 03-10-2022 FREE T3 2.29 pg/mlL Normal 2.18-3.98 [facility] Comment on above: Performed By: #### C MP, FT3, LIPID, T4, TSH ####[facility] [address] [address]Dr. Eugenia Osei GLYCOHEMOGLOBIN A1Con 2021 ADA RECOMMENDATION SEE BELOW Normal [facility] Comment on above: Result Comment: ADA RECOMMENDED LIMIT 4.0 - 6.0 ADA THERAPEUTIC TARGET < 7.0 ACTION SUGGESTED > 7.0 Performed By: #### A 1C #### [facility] [address] [address] [address] Eugenia Osei Glucose [Mass/Vol] 97 mg/dL Normal [facility] Comment on above: Performed By: #### A 1C #### [facility] [address] [address] [address] Eugenia Osei HbA1c (Bld) [Mass fraction] 5.0 % Normal 4.5-6.2 [facility] Comment on above: Performed By: #### A 1C #### [facility] [address] [address] [address] Eugenia Osei LIPID PROFILEon 03-10-2022 CHOL-HDL RATIO NORM SEE BELOW Normal [facility] Comment on above: Result Comment: 3.3 - 4.4 LOW RISK 4.4 - 7.1 AVERAGE RISK 7.1 - 11.0 MODERATE RISK >11.0 HIGH RISK Performed By: #### C MP, FT3, LIPID, T4, TSH ####[facility] [address] [address]DrKael Osei Cholesterol [Mass/Vol] 213 mg/dL Critically high <=200 [facility] Comment on above: Performed By: #### C MP, FT3, LIPID, T4, TSH ####[facility] [address] [place] [address]DrKael Osei Cholesterol in HDL [Mass/Vol] 42 mg/dL Normal 40-60 [facility] Comment on above: Performed By: #### C MP, FT3, LIPID, T4, TSH ####[facility] [address] [address]DrKael Osei Cholesterol in LDL [Mass/Vol] 145.4 mg/dL Normal [facility] Comment on above: Performed By: #### C MP, FT3, LIPID, T4, TSH ####[facility] [address] [address]Dr. Eugenia Osei Cholesterol.total/Cho lesterol in HDL [Mass ratio] 5.1 {ratio} Normal [facility] Comment on above: Performed By: #### C MP, FT3, LIPID, T4, TSH ####[facility] [address] [place] [address] [address]Dr. Eugenia Osei HDL NORMAL > or = 60 mg/dl - LOW CARDIOVASCULAR RISK <40 mg/dl - HIGH CARDIOVASCULAR RISK Normal [facility] Comment on above: Performed By: #### C MP, FT3, LIPID, T4, TSH ####[facility] [address] [place] [address]Dr. Eugenia Osei LDL CALC NORMAL SEE BELOW Normal [facility] Comment on above: Result Comment: <100 mg/dl OPTIMAL 100 - 129 mg/dl NEAR OR ABOVE OPTIMAL 130 - 159 mg/dl BORDERLINE HIGH 160 - 189 mg/dl HIGH >190 mg/dl VERY HIGH Performed By: #### C MP, FT3, LIPID, T4, TSH ####[facility] [address] [place] [address] [address]Dr. Eugenia Osei Triglyceride [Mass/Vol] 128 mg/dL Normal <=150 [facility] Comment on above: Performed By: #### C MP, FT3, LIPID, T4, TSH ####[facility] [address] [address]Dr. Eugenia Osei VLDL CALC 25.6 mg/dL Normal [facility] Comment on above: Performed By: #### C MP, FT3, LIPID, T4, TSH ####[facility] [address] [place] [address]Dr. Eugenia Osei PROF 14(COMP METB)on 022 Albumin [Mass/Vol] 4.3 g/dL Normal 3.4-5.0 [facility] Comment on above: Performed By: #### C MP, FT3, LIPID, T4, TSH ####[facility] [address] [place] [address]Dr. Eugenia Osei Albumin/Globulin [Mass ratio] 1.1 {ratio} Normal [facility] Comment on above: Performed By: #### C MP, FT3, LIPID, T4, TSH ####[facility] [address] [place] [address]Dr. Eugenia Osei ALP [Catalytic activity/Vol] 98 U/L Normal 46-116 [facility] Comment on above: Performed By: #### C MP, FT3, LIPID, T4, TSH ####[facility] [address] [place] [address]Dr. Cristabailey Osei ALT [Catalytic activity/Vol] 23 U/L Normal 14-59 [facility] Comment on above: Performed By: #### C MP, FT3, LIPID, T4, TSH ####[facility] [address] [place], [place] [address]Dr. Eugenia Osei Anion gap [Moles/Vol] 12.9 mmol/L Normal [facility] Comment on above: Performed By: #### C MP, FT3, LIPID, T4, TSH ####[facility] [address] [place], [place] [address]Dr. Cristabailey Osei AST [Catalytic activity/Vol] 16 U/L Normal 15-37 [facility] Comment on above: Performed By: #### C MP, FT3, LIPID, T4, TSH ####[facility] [address] [place], [place] [address]Dr. Eugenia Osei Bilirubin [Mass/Vol] 0.7 mg/dL Normal 0.2-1.0 [facility] Comment on above: Performed By: #### C MP, FT3, LIPID, T4, TSH ####[facility] [address] [place], [place] [address]Dr. Eugenia Osei Calcium [Mass/Vol] 8.9 mg/dL Normal 8.5-10.1 [facility] Comment on above: Performed By: #### C MP, FT3, LIPID, T4, TSH ####[facility] [address] [place] [address]Dr. Eugenia Osei Chloride [Moles/Vol] 103 mmol/L Normal 98-107 [facility] Comment on above: Performed By: #### C MP, FT3, LIPID, T4, TSH ####[facility] [address] [place] [address]Dr. Eugenia Osei CO2 [Moles/Vol] 30.0 mmol/L Normal 21.0-32.0 [facility] Comment on above: Performed By: #### C MP, FT3, LIPID, T4, TSH ####[facility] [address] [place] [address]Dr. Eugenia Osei Creatinine [Mass/Vol] 0.81 mg/dL Normal 0.55-1.02 [facility] Comment on above: Performed By: #### C MP, FT3, LIPID, T4, TSH ####[facility] [address] [place], [place] [address]Dr. Eugenia Osei EGFR-AF UKRAINIAN >60 Normal >=60 [facility] Comment on above: Performed By: #### C MP, FT3, LIPID, T4, TSH ####[facility] [address] [place], [place] [address]Dr. Eugenia Osei EGFR-NON AF UKRAINIAN >60 Normal >=60 [facility] Comment on above: Performed By: #### C MP, FT3, LIPID, T4, TSH ####[facility] [address] [place] [address]Dr. Eugenia Osei Globulin (S) [Mass/Vol] 3.8 g/dL Normal [facility] Comment on above: Performed By: #### C MP, FT3, LIPID, T4, TSH ####[facility] [address] [place] [address]Dr. Eugenia Osei Glucose [Mass/Vol] 86 mg/dL Normal 74-106 [facility] Comment on above: Performed By: #### C MP, FT3, LIPID, T4, TSH ####[facility] [address] [place] [address]Dr. Eugenia Osei Potassium [Moles/Vol] 3.9 mmol/L Normal 3.5-5.1 [facility] Comment on above: Performed By: #### C MP, FT3, LIPID, T4, TSH ####[facility] [address] [place] [address]Dr. Eugenia Osei Protein [Mass/Vol] 8.1 g/dL Normal 6.1-8.2 [facility] Comment on above: Performed By: #### C MP, FT3, LIPID, T4, TSH ####[facility] [address] [place], [place] [address]Dr. Eugenia Osei Sodium [Moles/Vol] 142 mmol/L Normal 136-145 [facility] Comment on above: Performed By: #### C MP, FT3, LIPID, T4, TSH ####[facility] [address] [place], [place] [address]Dr. Eugenia Osei Urea nitrogen [Mass/Vol] 11.0 mg/dL Normal 7.0-18.0 [facility] Comment on above: Performed By: #### C MP, FT3, LIPID, T4, TSH ####[facility] [address] [place], [place] [address]Dr. Eugenia Osei Urea nitrogen/Creatinine [Mass ratio] 13.6 mg/mg Normal [facility] Comment on above: Performed By: #### C MP, FT3, LIPID, T4, TSH ####[facility] [address] [place], [place] [address]Dr. Eugenia Osei T4on 03-10-2022 T4 [Mass/Vol] 8.40 ug/dL Normal 4.80-13.90 [facility] Comment on above: Performed By: #### C MP, FT3, LIPID, T4, TSH ####[facility] [address] [place], [place] [address]Dr. Eugenia Osei TSHon 03-10-2022 TSH 1.448 uIU/mL Normal 0.470-4.680 [facility] Comment on above: Performed By: #### C MP, FT3, LIPID, T4, TSH ####[facility] [address] [place], [place] [address]Dr. Eugenia Osei TSH RANGE SEE BELOW Normal [facility] Comment on above: Result Comment: <0.3 4 UIU/ml HYPERTHYROID 0.34-5.60 UIU/ml EUTHYROID >5.60 UIU/ml HYPOTHYROID Performed By: #### C MP, FT3, LIPID, T4, TSH ####[facility] [address] [place], [place] [address]Dr. Eugenia Osei VITAMIN D 25 OHon 03-10-2022 VIT D 25-OH 63.4 ng/mL Normal [facility] Comment on above: Performed By: #### V ITAD #### [facility] [id number] Eugenia Osei VIT D RANGES SEE BELOW Normal [facility] Comment on above: Result Comment: <20 ng/mL Vit D deficient 20 - <30 ng/mL Vit D insufficient 30 - 100 ng/mL Vit D sufficient >100 ng/mL Potential Toxicity Performed By: #### V ITAD #### [facility] [address] [place], [place] [address] Dr. Eugenia Osei [facility]on SARS-CoV-2 (COVID-19) RNA KELLI+probe Ql (Unsp spec) Not detected Normal NOT DETECTED [facility] Comment on above: Result Comment: This test is not yet approved or cleared by the [place] FDA. When there are no FDA-approved or cleared tests available, and other criteria are met, FDA can make tests available under an emergency access mechanism called an Emergency Use Authorization (EUA). The EUA for this test is supported by the [place] of Health and Human Service's (HHS's) declaration that circumstances exist to justify the emergency use of in vitro diagnostics for the detection and/or diagnosis of the virus that causes COVID-19. This EUA will remain in effect (meaning this test can be used) for the duration of the COVID-19 declaration justifying emergency of IVDs, unless it is terminated or revoked by FDA (after which the test may no longer be used). When diagnostic testing is negative, the possibility of a false negative should be considered in the context of a patient's recent exposures and the presence of clinical signs and symptoms consistent with SARS-CoV-2. Performed By: #### C VDTB #### [facility] [address] [place] [address] Dr. Eugenia Osei INFLUENZA A AND B AGon 02-11 [facility] SEE BELOW Normal [facility] Comment on above: Result Comment: Nega tive for Flu A protein angiten. Infection due to Flu A cannot be ruled out. Flu A angiten in the sample may be below the detection limit of the test. Performed By: #### I NFLUAB #### [facility] [address] [place] [address] Dr. [facility] BEL[facility] Normal [facility] Comment on above: Result Comment: Nega tive for Flu B protein antigen. Infection due to Flu B cannot be ruled out. Flu B antigen in the sample may be below the detection limit of the test. Performed By: #### I NFLUAB #### [facility] [address] [place] [address] Dr. Eugenia Osei INFLUENZA A AG Negative Normal NEGATIVE SEE COMMENT [facility] Comment on above: Performed By: #### I NFLUAB #### [facility] [address] [place] [address] Dr. Eugenia Osei INFLUENZA B AG Negative Normal NEGATIVE SEE COMMENT [facility] Comment on above: Performed By: #### I NFLUAB #### [facility] [address] [place] [address] Dr. Eugenia Osei INTERNAL CONTROLS Within Normal Limits Normal Wi thin Normal Limits [facility] Comment on above: Performed By: #### I NFLUAB #### [facility] [address] [place] [address] Dr. Eugenia Osei No Panel Informationon 02-06 [facility] Vital Signs Date Time Vital Sign Value Performing Clinician Kathi roldan 09-25-2021 14:45-0500 Body height 160.02 cm Tolu Harris Other [facility] Other 09-25-2021 14:45-0500 Body mass index (BMI) [Ratio] 27.58 kg/m2 Tolu Harris Other [facility] Other 09-25-2021 14:45-0500 Body weight 70.63 kg Tolu Harris Other [facility] Other Encounters Encounter Date Encounter Type Care Provider Facility Start: 01-26-2024 End: 01-27-2024 ambulatory Radha J Amber [place] Start: 01-26-2024 End: 01-26-2024 Lab Drop off Radha J Amber [facility] Start: 08-23-2023 End: 08-24-2023 ambulatory Radha J Amber [place] Start: 08-23-2023 End: 08-23-2023 Patient encounter procedure Radha J Amber [facility] Start: 08-04-2023 End: 08-05-2023 ambulatory Radha J Amber [place] Start: 07-21-2023 End: 07-21-2023 Telemedicine consultation with patient Mariama Noonan DO Work Phone: [facility] Start: 07-21-2023 End: 07-22-2023 ambulatory Mariama Noonan DO Work Phone: Neurology Comment on above: Migraine without aur a and without status migrainosus, not intractable (Primary Dx) Start: 07-21-2023 End: 07-21-2023 Lab Drop off Radha J Amber [facility] Start: 12-22-2022 End: 12-23-[address] BJ WILSON . Facility: Start: 11-24-2022 End: 11-24-[address] CRISTIAN ARELLANO . Facility: Start: 10-12-2022 Refill Mariama Foote Work Phone: Neurology Comment on above: Refill Request Start: 07-30-2022 End: 07-30-[address] BJ WILSON . Facility:[facility] Start: 05-29-2022 End: 05-30-[address] BJ WILSON . Facility:[facility] Start: 05-22-2022 End: 05-23-[address] BJ WILSON . Facility:[facility] Start: 05-21-2022 End: 05-22-[address] BJ WILSON . Facility:[facility] Start: 04-27-2022 End: 04-28-[address] CRISTIAN ARELLANO . Facility:[facility] Start: 03-13-2022 Encounter for genera l adult medical examination without abnormal findings DR BJ WILSON . [facility] Start: 03-12-2022 End: 03-12-[address] BJ WILSON . Facility:[facility] Start: 03-12-2022 End: 03-12-2022 Encounter for general adult medical examination without abnormal findings DR BJ WILSON . Facility:[facility] Start: 03-10-2022 End: 03-11-[address] BJ WILSON . Facility:[facility] Start: 02-21-2022 End: 02-21-[address] BJ WILSON . Facility:[facility] Start: 02-11-2022 End: 02-11-[address] BJ WILSON . Facility:[facility] Start: 09-25-2021 End: 09-25-2021 ambulatory Tolu Harris Other [facility] Other Start: 09-25-2021 Office outpatient ne w 30 minutes Tolu Harris [facility] Start: 02-06-2021 End: 02-06-2021 Subsequent hospital visit by physician [facility] Work Phone: Radiology Comment on above: [place] headache [G44.53] Procedures Date Procedure Procedure Detail Performing Clinician Start: 02-06-2021 Ct angiography head w/contrast/noncontrast Mariama Noonan DO Work Phone: Start: 02-06-2021 Ct angiography neck w/contrast/noncontrast Mariama James DO Work Phone: Plan of Treatment Date Care Activity Detail Author Start: 07-09-2023 Influenza vaccination [facility] Start: 11-08-2022 [facility] Start: 07-09-2022 Influenza vaccination INFLUENZA (#1) [facility] Start: 01-16-2022 Covid-19 Vaccine (4 - Moderna series) Covid-19 Vaccine (4 - Moderna series) [facility] Start: 11-08-2021 [facility]PRESSION [facility] Start: 04-12-2021 COVID-19 VACCINE (3 - Booster for Moderna series) COVID-19 VACCINE (3 - Booster for Moderna series) [facility] Start: 04-12-2021 COVID-19 VACCINE (3 - Moderna series) COVID-19 VACCINE (3 - Moderna series) [facility] Start: 2017 SHINGRIX VACCINE (1 of 2) SHINGRIX V ACCINE (1 of 2) [facility] Start: 2012 COLOGUARD (FIT-DNA) COLOGUARD (FIT-D NA) [facility] Start: 2012 Colonoscopy COLONOSCOPY [facility] Start: 2012 COLORECTAL CANCER SCREENING COLORECTAL CANCER SCREENING [facility] Start: [address] [facility] Start: 2012 DIABETES SCREEN DIABETES SCREEN [facility] Start: 2012 Diabetes Screening Diabetes Screenin g [facility] Start: 2012 FECAL OCCULT BLOOD FECAL OCCULT BLOO D [facility] Start: 2012 Lipid 1996 panel - S mike or Plasma Lipid Screening [facility] Start: 2012 LIPID SCREEN LIPID SCREEN [facility] Start: 2012 SIGMOIDOSCOPY SIGMOIDOSCOPY [facility] Start: 2007 Mammography [facility] Start: 1997 HPV TESTING HPV TESTING [facility] Start: 1988 PAP TESTING PAP TESTING [facility] Start: 1986 Urine microalbumin profile [facility] Start: 1985 HEPATITIS C SCREENING HEPATITIS C SC REENING [facility] Start: 1985 HIV SCREENING HIV SCREENING [facility] Start: 1967 HEPATITIS B (1 of 3 - 3-dose series) HEPATITIS B (1 of 3 - 3-dose series) [facility] Start: 1967 Hepatitis B Vaccine (1 of 3 - 3-dose series) Hepatitis B Vaccine (1 of 3 - 3-dose series) [facility] Immunizations Immunization Date Immunization Notes Care Provider Fa [facility] 10-28-2021 influenza virus vacc ine, unspecified formulation Mariamaalisia Noonan DO Work Phone: [facility] Payers Date Payer Category Payer Unknown [id number] 1967 Unknown [id number] 2.16.84 [id number] 1967 Unknown [id number] 2.16.84 [id number] 1967 Unknown [id number] 2.16.84 [id number] 1967 Unknown [id number] 2.16.84 [id number] 1967 Unknown [id number] 2.16.84 0.1.311503.3.579.2.593 1967 Unknown [id number] 2.16.84 0.1.892213.3.579.2.593 1967 Unknown [id number] 2.16.84 0.1.386566.3.579.2.593 1967 Unknown [id number] 2.16.84 [id number] 1967 Unknown [id number] 2.16.84 0.1.121993.3.579.2.593 1967 Unknown [id number] 2.16.84 [id number] 1967 Unknown [id number] 2.16.84 [id number] 1967 Unknown [id number] 2.16.8 40.1.490169.3.579.2.727 1967 Unknown [id number] 2.16.8 40.1.384478.3.579.2.727 1967 Unknown [id number] 2.16.8 40.1.514810.3.579.2.727 1967 Unknown [id number] 2.16.8 [id number] 1959 Unknown [id number] 2. [id number] Social History Date Type Detail Facility Start: 01-07-2021 End: 07-21-2023 Sex Assigned At [facility] Start: 01-07-2021 [facility] Work Phone: Start: 01-07-2021 Tobacco use and exposure Smokeless tobacco non-user [facility] Work Phone: Start: 1965 Sex Assigned At Female [facility] Start: 01-07-2021 End: 07-21-2023 History of Social function [facility] Adult Depression Screening Assessment 0 [facility] Start: 01-23-2021 Gender identity Identifies as female gender (finding) [facility] Start: 01-23-2021 Sexual orientation Heterosexual (fin ding) [facility] Start: 12-08-2020 End: 01-07-2021 Exposure to SARS-CoV-2 (event) Not sure [facility] Tobacco smoking status No Smokin g Status Entered [facility] Clinical Notes 01-23-2021 to 01-26-2024 Mariama Noonan DO - 07/21/2023 4:03 PM EDTTelephone Encounter - Maryan Garcia - 10/12/2022 12:54 PM EST Note Date & Type Note Facility 01-26-2024 Evaluation + Plan note Diagnostic Tests PendingPAP [id number] 01/26/24 [facility] 07-21-2023 Note HNO ID: [id number] Author: Noonan, Mariama P, DO Service: ? Author Type: Physician Type: Progress Notes Filed: 07/21/2023 5:58 PM Note Text: Headache Center - VIRTUAL Follow-up Visit ASSESSMENT: 58 year old female with history significant for small L frontal meningioma (follows with NSGY), infrequent migraine without aura, ruptured intracranial dermoid cyst s/p resection 2000, HTN, anxiety, with chronic daily headache at last visit which improved significantly to stable episodic migraine. PLAN: (Please see typed patient instructions for detailed instructions) ---> Acute Treatment: -Indocin prn, which works well. ---> Preventive Treatment: -None needed for now. ---> Follow-up: 12 months. ---- Last visit: 07/31/21 Interval Headache Hx: Has not had a bad migraine for a long time. When she does it is L sided, throbbing, nausea, photo/phonophobia. Can last up to 5 days. When she does the Indomethacin takes it away with a single dose of 50 mg. Gets a lower level one on top of head about twice per month. HEADACHE SCORES: Headache Questions 01/23/2021 07/31/2021 07/20/2023 ID Migraine Screener: 2 (Positive) - - ER visits in the last year: 0 - - ER visits since last office visit: - 0 0 Hospital stays in the last year: 0 - - Hospital stays since last office visit - 0 0 Limited ADLs in the last month: 15 0 5 Days missed from work or school in the last month: - 0 5 Days headache pain free in the last month: 3 25 25 Days per month with ALL of the following symptoms - decreased productivity, light sensitivity and nausea: - 0 5 Initial improvement of headache after botox injection at last visit: - Not applicable, I did not have a botox injection at my last visit Not applicable, I did not have a botox injection at my last visit PRN medication usage in the last month: 27 5 10 Patient impression of improvement since last visit: - Minimally improved Very much improved HIT-6 01/23/2021 07/31/2021 07/20/2023 HIT-6 64 (Severe impact) 59 (Substantial impact) 68 (Severe impact) LYUDMILA - 2/7 SCORES 01/23/2021 07/31/2021 LYUDMILA-2 Score 1 2 Migraine Specific QOL - Higher scores indicate better HRQL 01/23/2021 07/31/2021 07/20/2023 Role Function-Restrictive Transformed Score (range: 0-100) 100 88.57 45.71 Role Function-Preventive Transformed Score (range: 0-100) 100 100 30 Emotional Function Transformed Score (range: 0-100) 100 86.66 40 PHQ-9 01/23/2021 07/31/2021 07/20/2023 Score 0 0 0 ------- MEDS: Current Outpatient Medications Medication Sig alendronate (FOSAMAX) 35 mg tablet Take 35 mg by mouth one time a week. amitriptyline (ELAVIL) 10 mg tablet Take 1 tablet by mouth daily at bedtime. indomethacin (INDOCIN) 25 mg capsule Take 1-3 caps every 8 hours as needed for head pain. Take with food. Do not use with other NSAIDs or steroids. PARoxetine ER (PAXIL CR) 12.5 mg 24 hr tablet Take 12.5 mg by mouth once daily. tiZANidine (ZANAFLEX) 4 mg tablet Take 4 mg by mouth as needed. aspirin, enteric coated (ASPIRIN, ENTERIC COATED) 81 mg EC tablet Take 81 mg by mouth once daily. Cholecalciferol, Vitamin D3, 125 mcg (5,000 unit) cap Take 5,000 Units by mouth once daily. CALCIUM ORAL Take 1 tablet by mouth once daily. No current facility-administered medications for this visit. Prior Therapies Duration of Use Dose Reason for Discontinuation Anti-Depressant and Antipsychotic Paroxetine (Paxil) Muscle Relaxer Tizanidine (Zanaflex) Over the Counter Medications Acetaminophen (Tylenol) Acetaminophen/Aspirin/Caffeine (Excedrin, Goody?s) Aspirin Ibuprofen (Advil, Motrin) Naproxen sodium (Aleve) Mariama Noonan DO [facility] [place] [facility] [address] [place] [address], [place] [address] Level of service: Est level 2 (10-19 min). Time spent 19 min on the day of service, which included preparing to see the patient, [id number] patient care, completing clinical documentation, obtaining and/or reviewing separately obtained history, and counseling and educating the patient/family/caregiver. Medical Decision Making: Medical Decision Making Level: 1 - N/A I have communicated my name and active licensure. The patient's identity and physical location were verified at the time of this visit. Either the patient or their legal retail sales representative has been informed of the risks and benefits of -- and alternatives to -- treatment through a remote evaluation and consents to proceed with the evaluation remotely. cc: Bj Wilson [address] [place] [address] Phone: [phone] (more content not included)... [facility] 07-21-2023 History of Presen t illness Narrative Headache Center - VIRTUAL Follow-up Visit ASSESSMENT: 58 year old female with history significant for small L frontal meningioma (follows with NSGY), infrequent migraine without aura, ruptured intracranial dermoid cyst s/p resection 2000, HTN, anxiety, with chronic daily headache at last visit which improved significantly to stable episodic migraine. PLAN: (Please see typed patient instructions for detailed instructions) ---> Acute Treatment: -Indocin prn, which works well. ---> Preventive Treatment: -None needed for now. ---> Follow-up: 12 months. Last visit: 07/31/21 Interval Headache Hx: Has not had a bad migraine for a long time. When she does it is L sided, throbbing, nausea, photo/phonophobia. Can last up to 5 days. When she does the Indomethacin takes it away with a single dose of 50 mg. Gets a lower level one on top of head about twice per month. HEADACHE SCORES: Headache Questions 01/23/2021 07/31/2021 07/20/2023 ID Migraine Screener: 2 (Positive) - - ER visits in the last year: 0 - - ER visits since last office visit: - 0 0 Hospital stays in the last year: 0 - - Hospital stays since last office visit - 0 0 Limited ADLs in the last month: 15 0 5 Days missed from work or school in the last month: - 0 5 Days headache pain free in the last month: 3 25 25 Days per month with ALL of the following symptoms - decreased productivity, light sensitivity and nausea: - 0 5 Initial improvement of headache after botox injection at last visit: - Not applicable, I did not have a botox injection at my last visit Not applicable, I did not have a botox injection at my last visit PRN medication usage in the last month: 27 5 10 Patient impression of improvement since last visit: - Minimally improved Very much improved HIT-6 01/23/2021 07/31/2021 07/20/2023 HIT-6 64 (Severe impact) 59 (Substantial impact) 68 (Severe impact) LYUDMILA - 2/7 SCORES 01/23/2021 07/31/2021 LYUDMILA-2 Score 1 2 Migraine Specific QOL - Higher scores indicate better HRQL 01/23/2021 07/31/2021 07/20/2023 Role Function-Restrictive Transformed Score (range: 0-100) 100 88.57 45.71 Role Function-Preventive Transformed Score (range: 0-100) 100 100 30 Emotional Function Transformed Score (range: 0-100) 100 86.66 40 PHQ-9 01/23/2021 07/31/2021 07/20/2023 Score 0 0 0 MEDS: Current Outpatient Medications Medication Sig alendronate (FOSAMAX) 35 mg tablet Take 35 mg by mouth one time a week. amitriptyline (ELAVIL) 10 mg tablet Take 1 tablet by mouth daily at bedtime. indomethacin (INDOCIN) 25 mg capsule Take 1-3 caps every 8 hours as needed for head pain. Take with food. Do not use with other NSAIDs or steroids. PARoxetine ER (PAXIL CR) 12.5 mg 24 hr tablet Take 12.5 mg by mouth once daily. tiZANidine (ZANAFLEX) 4 mg tablet Take 4 mg by mouth as needed. aspirin, enteric coated (ASPIRIN, ENTERIC COATED) 81 mg EC tablet Take 81 mg by mouth once daily. Cholecalciferol, Vitamin D3, 125 mcg (5,000 unit) cap Take 5,000 Units by mouth once daily. CALCIUM ORAL Take 1 tablet by mouth once daily. No current facility-administered medications for this visit. Prior Therapies Duration of Use Dose Reason for Discontinuation Anti-Depressant and Antipsychotic Paroxetine (Paxil) Muscle Relaxer Tizanidine (Zanaflex) Over the Counter Medications Acetaminophen (Tylenol) Acetaminophen/Aspirin/Caffeine (Excedrin, Goody s) Aspirin Ibuprofen (Advil, Motrin) Naproxen sodium (Aleve) Mariama Noonan DO [facility] [place] [facility] [id number] [place] [address], [address] [address] Level of service: Est level 2 (10-19 min). Time spent 19 min on the day of service, which included preparing to see the patient, [id number] patient care, completing clinical documentation, obtaining and/or reviewing separately obtained history, and counseling and educating the patient/family/caregiver. Medical Decision Making: Medical Decision Making Level: 1 - N/A I have communicated my name and active licensure. The patient's identity and physical location were verified at the time of this visit. Either the patient or their legal retail sales representative has been informed of the risks and benefits of -- and alternatives to -- treatment through a remote evaluation and consents to proceed with the evaluation remotely. cc: Bj Wilson [address] [place] [address] documented in this encounter [facility] 10-12-2022 Miscellaneous Notes Patient last seen on 07/31/21. Overdue for follow up. documented in this encounter [facility] 05-22-2022 Note PROCEDURE: XR HIP RT 2 3V WO PELVIS COMPARISON: None. HISTORY: Pain in right hip joint FINDINGS: BONES:No fracture, acute abnormality, or significant arthropathy. SOFT TISSUES:Negative. No visible soft tissue swelling. EFFUSION:None visible. OTHER: Negative. IMPRESSION: No acute abnormality Electronically authenticated by: NORMA MATTSON Date: 2022-05-21 22:03 [facility] 09-25-2021 Evaluation note Encounter Date Diagnosis Assessment Notes Sep, Left wrist pain (ICD-10 - M25.532) Sep, Ganglion, left wrist (ICD-10 - M67.432) Extensive discussion was had about the current condition and treatment options available. The patient appears to a ganglion cyst. Patient instructed on the use of cock up wrist splint. Patient advised that if problems persist she may consider excision of cyst. I recommend giving this more time as it may resolve on its own. Patient agreeable with plan [facility] Other 03-18-2021 History of Past illness Narrative* Problem Noted Date Diagnosed Date Resolved Date Primary cough headache 01/23/202107/21 Thunderclap headache 01/23/2021 023 New daily persistent headache 01/23/2021 07/21/2023 documented as of this encounter (statuses as of 07/22/2023) [facility] Future Appointments Appointment Date:08/04/2023 08:30:00 AM Scheduled Provider: Location:FT.MAMMOGRAM Appointment Type:MA Screen (FT) Appointment Date:08/04/2023 09:00:00 AM Scheduled Provider: Location:.BD Appointment Type:BD Bone Density () Diagnostic Tests Pending * PAP [phone] 07/21/23 Future Scheduled Tests Radiology* BD Bone Density DEXA 08/04/23 * MA Mamm Screen w/CAD if perf and 3D Shakeel [facility] Diagnosis Thunderclap headache Headache New daily persistent headache Primary cough headache Exertional headache Headache Dissection of carotid artery (HCC) Dissection of carotid artery documented in this encounter [facility] note* Diagnosis Migraine without aura and without status migrainosus, not intractable- Primary Migraine without aura, without mention of intractable migraine without mention of status migrainosus documented in this encounter [facility] general Narrative - Reported* Type Description Date Medical History brain tumor Surgical History brain tumor removal 2000 Hospitalization History See Above Hospitalization History colitis Dweho Other Hospital course Narrative No data available for this section [facility] No data available for this section [facility] No data available for this section [facility] Diagnostic Procedure Only (Routine) - Closed Specialty Diagnoses / Procedures Referred By Deyanira t Referred To Contact CT IMAGING Diagnoses Dissection of carotid artery (HCC) Thunderclap headache Procedures CTA NECK W IVCON CTA NECK, W/WO C, W/3D CTA HEAD WWO C, W/3D Noonan, Mariama P, DO [address] [place] [address] Ct Imaging Referral ID Status Reason Start Date Expiration Date V isits Requested Visits Authorized [id number] Closed Auto-Generate d Referral 01/27/2021 07/26/2021 1 1 * Diagnostic Procedure Only (Routine) - Closed Specialty Diagnoses / Procedures Referred By Contac t Referred To Contact CT IMAGING Diagnoses Thunderclap headache New daily persistent headache Primary cough headache Exertional headache Procedures CTA HEAD WO/W IVCON CTA HEAD WWO C, W/3D Noonan, Mariama P, DO [address] [place] [address] Ct Imaging Referral ID Status Reason Start Date Expiration Date V isits Requested Visits Authorized [id number] Closed Auto-Generate d Referral 01/27/2021 07/26/2021 1 1 [facility]* Diagnostic Procedure Only (Routine) - Closed Specialty Diagnoses / Procedures Referred By Contac t Referred To Contact CT IMAGING Diagnoses Dissection of carotid artery (HCC) Thunderclap headache Procedures CTA NECK W IVCON CTA NECK, W/WO C, W/3D CTA HEAD WWO C, W/3D Noonan, Mariama P, DO [address] [place] [address] Ct Imaging Referral ID Status Reason Start Date Expiration Date V isits Requested Visits Authorized [id number] Closed Auto-Generate d Referral 01/27/2021 07/26/2021 1 1 [facility] Summary Purpose Family History No Family History Records FoundNo Family History Records Found No data available for this section No data available for this section No Family History Records Found Advance Directives No Advanced Directives Records FoundNo Advanced Directives Records FoundNo Advanced Directives Records Found Additional Source Comments REASON FOR VISIT (unrecogniz ed section and content) Reason Onset Date Comments Refill Request 10/12/2022 Reason Comments Migraine Source Comments (unrecognize d section and content) In the event this informatio n is protected by the Federal Confidentiality of Alcohol and Drug Abuse Patient Records regulations: The Federal rules restrict any use of the information to criminally investigate or prosecute any alcohol or drug abuse patient.[facility] the event this information is protected by the Federal Confidentiality of Alcohol and Drug Abuse Patient Records regulations: The Federal rules restrict any use of the information to criminally investigate or prosecute any alcohol or drug abuse patient.[facility] the event this information is protected by the Federal Confidentiality of Alcohol and Drug Abuse Patient Records regulations: The Federal rules restrict any use of the information to criminally investigate or prosecute any alcohol or drug abuse patient.[facility] Care Teams (unrecognized sec tion and content) Concession Stand Attendant Relationship Specialty Start Date End Date Bj Wilson MD [address] [place] [address] PCP - General Family Medicine 01/01/21 Bj Wilson MD [address] [place] [address] Referring Family Medicine 01/01/21 Concession Stand Attendant Relationship Specialty Start Date End Date Bj Wilson MD PCP - General Family Medicine 01/01/21 Bj Wilson MD Referring Family Medicine 01/01/21 Concession Stand Attendant Relationship Specialty Start Date End Date Bj Wilson MD PCP - General Family Medicine 01/01/21 Bj Wilson MD Referring Family [facility] 01/01/21 INFORMATION SOURCE (unrecogn ized section and content) DATE CREATED AUTHOR 12/27/[address] [facility] DATE CREATED AUTHOR AUTHOR'S ORGANIZ ATION 07/23/2023 [facility] DATE CREATED AUTHOR AUTHOR'S ORGANIZ ATION 02/02/2024 [facility] FOR RECORDS PERTAINING TO PATIENTS WHO ARE OR HAVE BEEN ENROLLED IN A CHEMICAL DEPENDENCY/SUBSTANCEABUSE PROGRAM, SOME INFORMATION MAY BE OMITTED. This clinical summary was aggregated from multiple sources. Caution should be exercised in using it in the provision of clinical care. This summary normalizes information from multiple sources, and as a consequence, information in this document may materially change the coding, format and clinical context of patient data. In addition, data may be omitted in some cases. CLINICAL DECISIONS SHOULD BE BASED ON THE PRIMARY CLINICAL RECORDS. [facility]. provides no warranty or guarantee of the accuracy or completeness of information in this document.
[2024-05-02 11:44] LABS: Hematocrit 41.7 % (36.0-48.0); Hemoglobin 13.8 g/dL (12.0-16.0); Immature Granulocytes Abs Auto 0.01 10^3/uL (0.00-0.03); Immature Granulocytes Pct Auto 0.3 % (0.0-0.5); Lymphocytes Absolute Auto 1.4 10^3/uL (1.2-3.8); Lymphocytes Percent Auto 35.7 % (20.5-60.0); Mean Corpuscular HGB Conc 33.1 g/dL (29.9-35.2); Mean Corpuscular Hemoglobin 29.6 pg (26.7-34.0); Mean Corpuscular Volume 89.3 fL (81.0-99.0); Monocytes Absolute Auto 0.3 10^3/uL (0.3-0.8); Monocytes Percent Auto 7.8 % (1.7-12.0); Neutrophils Absolute Auto 2.1 10^3/uL (1.4-6.5); Neutrophils Percent Auto 54.2 % (43.0-75.0); Platelet Count 193 10^3/uL (150-450); Red Blood Count 4.67 10^6/uL (4.20-5.40); Red Cell Distribution Width 12.2 % (11.0-15.0); White Blood Count 3.9 10^3/uL (4.0-11.0)
== END 2024-05-02 11:14 | disposition home or self-care (01) ==
LOC: LAB 11:14
PROVIDERS: PCP Family Medicine; Visit Provider Family Medicine
DX: D70.9 Neutropenia, unspecified (principal)
CPT/HCPCS: 36415; 85025

== ENCOUNTER 2024-08-16 09:27 | Outpatient (OUT) | payer OTHER, SELFPAY ==
--- OUTSIDE RECORDS SUMMARY | 2024-08-16 09:56 | XMS_ITS | CCD ---
Author Organization [facility] Care Team Providers Care Advertising Photographer Name Role Phone Tolu Harris Unavailable Bj Wilson MD Primary Care Provider [phone] Bj Wilson MD Unavailable CONG ., [...] García Consulting Unavailable ROSY CHING Consulting Unavailable KARASIK ., DR FOSTER Admitting Unavailabl e KARASIK [...] Unavailabl Bj Duckworth MD Primary Care Provider [phone] Bj Wilson MD Unavailable NONE, XXXX Primary Care Physician Unavailab BJ Schwartz Primary Care Unavailable MARIAMA NOONAN Attending Unavailable Bj Wilson Primary Care Physician [phone] Amber, Radha J Attending Unavailable Amber, Radha [...] Morphine; Translations: [MORPHINE] Drug Allergy 01-07-2021 [facility] Work Phone: (1 source) Morphine Drug Allergy 12-03-2020 [facility] Repository Medications Current Medications Medication Drug [...] Onset: 02-21-2022 Episodic Other aftercare (1 source) 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 of containers..01 ThinPrep Vial DIAGNOSIS: 01 NEGATIVE FOR INTRAEPITHELIAL LESION OR MALIGNANCY. CELLULAR CHANGES ASSOCIATED WITH ATROPHY ARE PRESENT. Specimen adequacy: 01 Satisfactory for evaluation. Endocervical component may not be distinguished in cases of atrophy. Performed by: Radha Mendenhall Counter Top Maker (ASC) . 01 Note: Note 01 The [...] <-Panic Low,>-Panic High,A-Abnormal,AA-Critical Abnormal Performed at: [address] [address] Suzan Bauer MD, Performed By: #### 3 [id number] #### [facility] [address] [place] [address] HPV 16+18+31+33+35+39+45+ 51+52+56+58+59+66+68 DNA Probe+sig amp Ql (Cvx) Negative Invalid Interpretation Code Negative [facility] Comment on above: Result Comment: This nucleic acid amplification test detects fourteen high-risk HPV types (16,18,31,33,35,39,45,51,52,56,58,59,66,68) without differentiation. Performed at: [address] [id number] MD Juancarlos Mares Performed at: =G [address] [id number] MD Juancarlos Mares Performed By: #### 3 [id number] #### [facility] [address] [place] [address] PAP [id number] 01-26-2024 Collection Technique BRUSH-SPATULA Normal F [facility] Comment on above: Performed By: #### 3 [id number] #### [facility] [address] [place] [address] Gynecological Body Site ENDOCERVIX Normal [facility] Comment on above: Performed By: #### 3 [id number] #### [facility] [address] [facility] [place] [address] Other Patient Information WQD-PBGNR-TCU Normal [facility] Comment on above: Performed By: #### 3 [id number] #### [facility] [address] [place] [address] Previous Cytology Negative Normal [facility] Comment on above: Performed By: #### 3 [id number] #### [facility] [address] [facility] [place] [address] Previous Treatment NONE Normal [facility] Comment on above: Performed By: #### 3 [id number] #### [facility] [address] [facility] [place] [address] Physician Orderon 01-26-2024 Physician Order [id number] 7#1.00TIFF Normal [facility] CHEMISTRYOrdered By: SYSTEM SYSTEM on 08-23-2023 25-hydroxyvitamin D3 [Mass/Vol] 54.9 ng/mL Normal 30.0 - 100.0 ng/mL FT [facility] Comment on above: Interpretive Data: Vitamin D deficiency has been defined as a level of serum 25-OH vitamin D less than 20 ng/mL (1,2) by the [place] [employer] and an Endocrine Society practice guideline. The Endocrine Society further defined vitamin D insufficiency as a level between 21 and 29 ng/mL (2). 1. IOM ([place] of [employer]). 2010. Dietary reference intakes for [...] 75 mL/min/1.73 m2 Normal >=59mL/min/1. 73 m2 [facility] Chem S Comment on above: Interpretive Data: [...] 08-23-2023 Calcium [Mass/Vol] 9.6 mg/dL Normal 8.9-11.1 [facility] Comment on above: Performed By: #### 2 281069, 7533047, 3698912, 95542695, [id number], 2692092, 1742519 #### [facility] [address] [place] [address] Consent for Treatmenton 08-08 Consent for Treatment [id number] #1.00TIFF Normal [facility] Creatinineon 08-23-2023 Creatinine [Mass/Vol] 0.9 mg/dL Normal 0.5-1.3 [facility] Comment on above: Performed By: #### 2 911425, 6446253, 0906949, 55808036, 354554362, 9786271, 1279705 #### [facility] [address] [place] [address] Glu Fastingon 08-23-2023 Glucose [Mass/Vol] 92 mg/dL Normal 55-99 [facility] Comment on above: Performed By: #### 2 397501, 4578245, 7054390, 99645908, 066905158, 8856833, 9274991 #### [facility] [address] [place] [address] Lipid Panelon 08-23-2023 Cholesterol [Mass/Vol] 257 mg/dL High 120-200 [facility] Comment on above: Performed By: #### 2 565312, 3004897, 5678134, 47454346, 501190509, 1355790, 1512011 #### [facility] [address] [place] [address] Cholesterol in HDL [Mass/Vol] 43 mg/dL Invalid Interpretation Code [facility] Comment on above: Result Comment: HDL > or equal to 60 mg/dL: Low cardiovascular risk HDL < 40 mg/dL : High cardiovascular risk Performed By: #### 2 321178, 3459418, 1427869, 93933448, 514799875, 5558816, 0976712 #### [facility] [address] [place] [address] Cholesterol in LDL [Mass/Vol] 175 mg/dL High <=129 [facility] Comment on above: Performed By: #### 2 033723, 6814197, 9924175, 24691258, 485366756, 3427337, 9757144 #### [facility] [address] [place] [address] Cholesterol in VLDL [Mass/Vol] 45 mg/dL High 7-40 [facility] Comment on above: Performed By: #### 2 218015, 6625258, 4924313, 85431345, 298270128, 1502741, 7634412 #### [facility] [address] [place] [address] Triglyceride [Mass/Vol] 224 mg/dL High <=149 [facility] Comment on above: Performed By: #### 2 296522, 3783320, 5247639, 57971442, 551964574, 2941948, 6439523 #### [facility] [address] [place] [address] Physician Orderon 08-23-2023 Physician Order [id number] 7#1.00TIFF Normal [facility] TSHon 08-23-2023 TSH Qn 2.36 m[IU]/L Normal 0.34-5.60 [facility] Comment on above: Performed By: #### 2 505711, 6887335, 1717196, 38271392, 356862465, 9796672, 8645637 #### [facility] [address] [place] [address] Vitamin D 25 Hydroxyon 08-23 25-hydroxyvitamin D3 [Mass/Vol] 54.9 ng/mL Normal 30.0-100.0 [facility] Comment on above: Result Comment: Vit min D deficiency has been defined as a level of serum 25-OH vitamin D less than 20 ng/mL (1,2) by the [place] [employer] and an Endocrine Society practice guideline. The Endocrine Society further defined vitamin D insufficiency as a level between 21 and 29 ng/mL (2). 1. IOM ([place] [employer]). 2010. Dietary reference intakes for calcium and D. [place]: The National Academies Press. 2. Jammie MF, Matthew [place], Geovanna STALEY, et al. Evaluation, treatment, and prevention of vitamin D deficiency: an Endocrine Society clinical practice guideline. JCEM. 2011 May; 96 (7):1911-30. Performed By: #### 2 360750, 0791956, 8829032, 17646942, 798190890, 9003285, 3905542 #### [facility] [address] [place] [address] eGFRon 08-23-2023 GFR/1.73 sq M.predicted among non-blacks MDRD (S/P/Bld) [Vol rate/Area] 75 mL/min/1.73 m2 Normal >=59 [facility] Comment on above: Order Comment: Order added by Discern Expert. Result Comment: Air Sealing Technician jeanna kidney disease could be indicated at eGFR's of less than 60 mL/min/1.73m2. Kidney failure is indicated at less than 15 mL/min/1.73m2. Performed By: #### 2 312437, 3911206, 1104466, 11788594, 985128463, 2374130, 1140405 #### [facility] [address] [place] [address] MA Mamm Screen w/CAD if perf and [...] very important to your health. The current [employer] and National Comprehensive Cancer Network guidelines recommends annual mammography beginning at age 40. This facility utilizes a reminder system to ensure all patients receive reminder notifications at the appropriate time based on the recommendations of this exam. Board Certified Radiologists. Accredited by the ACR and FDA. Ordering Provider: Radha Clark FINAL REPORT Dictated: 08/09/2023 2:12 pm Cliff Zuleta M.D. Signed (Electronic Signature): 08/09/2023 2:12 pm Signed by: Cliff Zuleta M.D. Transcribed by: ERIK Technologist: [facility] Assessment: BI-RADS Category 2-Benign finding Recommendation: Normal interval follow-up Normal [facility] BD Bone Density DEXAon 08-04 BD Bone [...] V. Transcribed by: ERIK Technologist: YONNY Normal [facility] Consent for Treatmenton 07-10 Consent for Treatment [id number] #1.00CD:127 Normal [facility] RAD - Mammography Reporton 0 08-03-2023 RAD - Mammography Report [id number]# 1.00CD:127 Normal [facility] PAP [id number] 07-26-2023 Cytology report Cyto stain Doc (Cvx/Vag) Note Invalid Interpretation Code [facility] Comment on above: Result Comment: TEST S RESULT FLAG UNITS REF RANGE LAB Clinician Provided Cytology Information Source.............Endocervix LMP / Prev Treat...GBY=[id number] No. of containers..01 ThinPrep Vial DIAGNOSIS: 01 NEGATIVE FOR INTRAEPITHELIAL LESION OR MALIGNANCY. Specimen adequacy: 01 Satisfactory for evaluation. Endocervical and/or squamous metaplastic cells (endocervical component) are present. Performed by: 01 Liz Viera, Counter Top Maker (ASCP) . 01 Note: Note 01 The [...] Low,>-Panic High,A-Abnormal,AA-Critical Abnormal Performed at: [address] [address] Suzan Bauer MD, Performed By: #### 3 [id number] #### [facility] [address] [place] [address] HPV 16+18+31+33+35+39+45+ 51+52+56+58+59+66+68 DNA Probe+sig amp Ql (Cvx) Negative Invalid Interpretation Code Negative [facility] Comment on above: Result Comment: This nucleic acid amplification test detects fourteen high-risk HPV types (16,18,31,33,35,39,45,51,52,56,58,59,66,68) without differentiation. Performed at: WB [address] [id number] MD Juancarlos Mares Performed at: =G [address] [id number] MD Juancarlos Mares Performed By: #### 3 [id number] #### [facility] [address] [place] [address] [place] [address] PAP [id number] 07-21-2023 Collection Technique BRUSH-SPATULA [facility] Comment on above: Performed By: #### 3 [id number] #### [facility] [address] [place] [address] Gynecological Body Site ENDOCERVIX Normal [facility] Comment on above: Performed By: #### 3 [id number] #### [facility] [address] [place] [address] LMP or Menopause Date [id number] Invalid Interpretation Code [facility] Comment on above: Performed By: #### 3 [id number] #### [facility] [address] [place] [address] Previous Cytology Negative Normal [facility] Comment on above: Performed By: #### 3 [id number] #### [facility] [address] [place] [address] Previous Treatment NONE Normal [facility] Comment on above: Performed By: #### 3 [id number] #### [facility] [address] [place] [address] Physician Orderon 07-21-2023 Physician Order [id number] #1.00CD:127 Normal [facility] Physician Order [id number]# 1.00CD:127 Normal [facility] PAP ACOG PANEL 2: 30 to 65on 12-01-2022 . . [facility] Comment on above: Result Comment: Perf ormed at: WB Performed By: #### 4 [id number] #### [facility] [address] [address] [address] Eugenia Osei Age Gdln ACOG Testing - [facility] Comment on above: Performed By: #### 4 [id number] #### [facility] [address] [address] [address] Eugenia Osei DIAGNOSIS: Comment [facility] Comment on above: Result Comment: NEGA TIVE FOR INTRAEPITHELIAL LESION OR MALIGNANCY. CELLULAR CHANGES ASSOCIATED WITH ATROPHY ARE PRESENT. Performed at: WB Performed By: #### 4 [id number] #### [facility] [address] [place] [address] Dr. Eugenia Osei HPV Aptima Positive Abnormal Negative [facility] Comment on above: Result Comment: This nucleic acid amplification test detects fourteen high-risk HPV types (16,18,31,33,35,39,45,51,52,56,58,59,66,68) without differentiation. Performed at: =G Performed By: #### 4 [id number] #### [facility] [address] [place] [address] Dr. Eugenia Osei HPV Genotype 16 Negative Normal Negative [facility] Comment on above: Performed By: #### 4 [id number] #### [facility] [address] [place] [address] Dr. Eugenia Osei HPV Genotype 18,45 Negative Normal Negative [facility] Comment on above: Performed By: #### 4 895015 #### [facility] [address] [place] [address] Dr. Eugenia Osei HPV Genotype Reflex Comment Normal [facility] Comment on above: Result Comment: Obi cali, see HPV Genotype results. Performed at: WB Performed By: #### 4 [id number] #### [facility] [address] [place] [address] Dr. Eugenia Osei Methodology: Comment Normal [facility] Comment on above: Result Comment: This liquid based ThinPrep(R) pap test was screened with the use of an image guided system. Performed at: WB Performed By: #### 4 [id number] #### [facility] [address] [place] [address] Dr. Eugenia Osei Note: Comment Normal [facility] Comment on above: Result Comment: The Pap smear is a screening test designed to aid in the detection of premalignant and malignant conditions of the uterine cervix. It is not a diagnostic procedure and should not be used as the sole means of detecting cervical cancer. Both false-positive and false-negative reports do occur. . Performed at: WB Performed By: #### 4 [id number] #### [facility] [address] [address] [address] Eugenia Osei Performed by: Comment Normal [facility] Comment on above: Result Comment: Amol Baker Counter Top Maker (ASCP) Performed at: WB Performed By: #### 4 [id number] #### [facility] [address] [place], [place] [address] Dr. Eugenia Osei Specimen adequacy: Comment Normal [facility] Comment on above: Result Comment: Sati sfactory for evaluation. Endocervical component may not be distinguished in cases of atrophy. Performed at: WB Performed By: #### 4 [id number] #### [facility] [address] [address] [address] Eugenia Osei Covid-19 PCR ([facility])on 07-10 SARS-CoV-2 (COVID-19) RNA KELLI+probe Ql (Unsp spec) Detected Critically abnormal NOT DETECTED [facility] Comment on above: Result Comment: This test is not yet approved or cleared by the [place] FDA. When there are no FDA-approved or cleared tests available, and other criteria are met, FDA can make tests available under an emergency access mechanism called an Emergency Use Authorization (EUA). The EUA for this test is supported by the [place] of Health and Human Service's (HHS's) declaration [...] used). Performed By: #### C VDTBH #### [facility] [address] [id number] Eugenia Osei US PELVIS AND TRANSVAGon US PELVIS AND [...] by: JOHN HAJI Date: 2022-05-31 08:32 Normal [facility] CT ABD/PELV WO W CONon 05-22 CT [...] NORMA MATTSON Date: 2022-05-22 15:52 Normal [facility] CULTURE URINEon 05-22-2022 CULTURE URINE Culture Observations: NO GROWTH. Normal [facility] Comment on above: Performed By: #### U RCX ####[facility] [address] [address]Dr. Eugenia Osei UA RANDOM W/MICROSCOPICon BACTERIA NONE SEEN Normal NONE SEEN [facility] Comment on above: Performed By: #### U AMIC #### [facility] [address] [address] [address] Eugenia Osei Bilirubin Ql (U) Negative Normal NEGATIVE [facility] Comment on above: Performed By: #### U AMIC #### [facility] [address] [place] [address] Dr. Eugenia Osei CAST NONE SEEN Normal NONE SEEN [facility] Comment on above: Performed By: #### U AMIC #### [facility] [address] [place] [address] Dr. Eugenia Osei Clarity (U) CLEAR Normal CLEAR [facility] Comment on above: Performed By: #### U AMIC #### [facility] [address] [place] [address] Dr. Eugenia Osei Color (U) LT. YELLOW Normal YELLOW [facility] Comment on above: Performed By: #### U AMIC #### [facility] [address] [place] [address] Dr. Eugenia Osei Crystals LM Nom (Urine sed) NONE SEEN Normal NONE SEEN [facility] Comment on above: Performed By: #### U AMIC #### [facility] [address] [place] [address] Dr. Eugenia Osei Epithelial cells LM Ql (Urine sed) RARE Normal NONE SEEN /RARE [facility] Comment on above: Performed By: #### U AMIC #### [facility] [address] [place] [address] Dr. Eugenia Osei Glucose Ql (U) Negative Normal NEGATIVE [facility] Comment on above: Performed By: #### U AMIC #### [facility] [address] [place] [address] Dr. Eugenia Osei Hemoglobin Ql (U) TRACE-INTACT Abnormal NEGATIVE [facility] Comment on above: Performed By: #### U AMIC #### [facility] [address] [place] [address] Dr. Eugenia Osei Ketones Ql (U) Negative Normal NEGATIVE [facility] Comment on above: Performed By: #### U AMIC #### [facility] [address] [place] [address] Dr. Eugenia Osei LEUKOCYTES Negative Normal NEGATIVE [facility] Comment on above: Performed By: #### U AMIC #### [facility] [address] [place] [address] Dr. Eugenia Osei MUCOUS NONE SEEN Normal NONE SEEN [facility] Comment on above: Performed By: #### U AMIC #### [facility] [address] [place] [address] Dr. Eugenia Osei Nitrite Ql (U) Negative Normal NEGATIVE [facility] Comment on above: Performed By: #### U AMIC #### [facility] [address] [place] [address] Dr. Eugenia Osei pH (U) 6.5 [pH] Normal 5-9 [facility] Comment on above: Performed By: #### U AMIC #### [facility] [address] [place] [address] Dr. Eugenia Osei RBC 0-2 Normal 0-2 [facility] Comment on above: Performed By: #### U AMIC #### [facility] [address] [place] [address] Dr. Eugenia Osei SPEC GRAVITY <=1.005 Abnormal 1.005-<=1.025 [facility] Comment on above: Performed By: #### U AMIC #### [facility] [address] [place] [address] Dr. Eugenia Osei UA PROTEIN Negative Normal NEGATIVE/ TRACE [facility] Comment on above: Performed By: #### U AMIC #### [facility] [address] [place] [address] Dr. Eugenia Osei Urobilinogen Qn (U) 0.2 {Amber'U}/dL Normal 0.2 - 1. 0 [facility] Comment on above: Performed By: #### U AMIC #### [facility] [address] [place], [place] [address] Dr. Eugenia Osei WBC NONE SEEN Normal NONE SEEN [facility] Comment on above: Performed By: #### U AMIC #### [facility] [address] [place], [place] [address] Dr. Eugenia Osei MG MAMM SCREEN 3D SHAKEEL CADon 04-27-2022 MG MAMM SCREEN 3D SHAKEEL CAD Patient: NIC CONROY Exam Date: 04/27/2022 : 1965 Gender:F Ordering : DR CRISTIAN ARELLANO . Admission #: [id number] Family : Order #: [id number] CLICK HERE TO VIEW EXAM RADIOLOGY REPORT [...] esophageal/liver cancer at age 62. LOCATION: [facility] BREAST COMPOSITION: Heterogeneously dense,which may obscure [...] M.D. on 04/27/2022 at 11:34 Normal [facility] OCC BLD IMMUNO SCREENon 05-0 OCCULT BLOOD Negative Normal NEGATIVE [facility] Comment on above: Performed By: #### O BSCRN #### [facility] [address] [place], [place] [address] Dr. Eugenia Osei CBC AUTO DIFFon 03-10-2022 BASO # 0.0 103/ul Normal 0.0-0.1 [facility] Comment on above: Performed By: #### C BC ####[facility] [address] [id number] Osei Basophils/100 WBC (Bld) 0.8 % Normal 0.2-2.0 [facility] Comment on above: Performed By: #### C BC ####[facility] [address] [address]DrKael Osei EO # 0.1 103/ul Normal 0.0-0.7 [facility] Comment on above: Performed By: #### C BC ####[facility] [address] [address]DrKael Osei Eosinophils/100 WBC (Bld) 1.6 % Normal 0.9-7.0 [facility] Comment on above: Performed By: #### C BC ####[facility] [address] [address]DrKael Osei Erythrocyte distribution width (RBC) [Ratio] 12.3 % Normal 11.0-15.0 [facility] Comment on above: Performed By: #### C BC ####[facility] [address] [address]DrKael Osei Hematocrit (Bld) [Volume fraction] 42.5 % Normal 36.0-48.0 [facility] Comment on above: Performed By: #### C BC ####[facility] [address] [address]DrKael Osei Hemoglobin (Bld) [Mass/Vol] 14.2 g/dL Normal 12.0-16.0 [facility] Comment on above: Performed By: #### C BC ####[facility] [address] [address]DrKael Osei IG # 0.01 10e3/ul Normal 0.00-0.03 [facility] Comment on above: Performed By: #### C BC ####[facility] [address] [address]Dr. Eugenia Osei IG % 0.3 % Normal 0.0-0.5 [facility] Comment on above: Performed By: #### C BC ####[facility] [address] [address]Dr. Eugenia Osei LYMPH # 1.4 103/ul Normal 1.2-3.8 [facility] Comment on above: Performed By: #### C BC ####[facility] [address] [place] [address]Dr. Eugenia Osei Lymphocytes/100 WBC (Bld) 38.1 % Normal 20.5-60.0 [facility] Comment on above: Performed By: #### C BC ####[facility] [address] [place], [place] [address]Dr. Eugenia Osei MANUAL DIFF REQ NO Normal [facility] Comment on above: Performed By: #### C BC ####[facility] [address] [place] [id number]. Eugenia Osei MCH (RBC) [Entitic mass] 30.2 pg Normal 26.7-34.0 [facility] Comment on above: Performed By: #### C BC ####[facility] [address] [place] [address]Dr. Eugenia Osei MCHC (RBC) [Mass/Vol] 33.4 g/dL Normal 29.9-35.2 [facility] Comment on above: Performed By: #### C BC ####[facility] [address] [place], [place] [address]DrKael Osei MCV (RBC) [Entitic vol] 90.4 fL Normal 81.0-99.0 [facility] Comment on above: Performed By: #### C BC ####[facility] [address] [place], [place] [address]DrKael Osei MONO # 0.3 103/ul Normal 0.3-0.8 [facility] Comment on above: Performed By: #### C BC ####[facility] [address] [place] [id number]. Eugenia Osei Monocytes/100 WBC (Bld) 7.1 % Normal 1.7-12.0 [facility] Comment on above: Performed By: #### C BC ####[facility] [address] [place] [id number]. Eugenia Osei NEUT # 1.9 103/ul Normal 1.4-6.5 [facility] Comment on above: Performed By: #### C BC ####[facility] [address] [place] [id number]. Eugenia Osei Neutrophils/100 WBC (Bld) 52.1 % Normal 43.0-75.0 [facility] Comment on above: Performed By: #### C BC ####[facility] [address] [place] [id number]. Eugenia Osei Platelet mean volume (Bld) [Entitic vol] 9.5 fL Normal 9.5-13.5 [facility] Comment on above: Performed By: #### C BC ####[facility] [address] [place] [phone]. Eugenia Osei PLT 225 103/ul Normal 150-450 [facility] Comment on above: Performed By: #### C BC ####[facility] [address] [place] [phone]. Eugenia Osei RBC 4.70 106/ul Normal 4.20-5.40 [facility] Comment on above: Performed By: #### C BC ####[facility] [address] [place] [phone]. Eugenia Osei WBC 3.7 103/ul Critically low 4.0-11.0 [facility] Comment on above: Performed By: #### C BC ####[facility] [address] [place] [id number]. Eugenia Osei FREE T3on 03-10-2022 FREE T3 2.29 pg/mlL Normal 2.18-3.98 [facility] Comment on above: Performed By: #### C MP, FT3, LIPID, T4, TSH ####[facility] [address] [place] [address]Dr. Eugenia Osei GLYCOHEMOGLOBIN A1Con 2021 ADA RECOMMENDATION SEE BELOW Normal [facility] Comment on above: Result Comment: ADA RECOMMENDED LIMIT 4.0 - 6.0 ADA THERAPEUTIC TARGET < 7.0 ACTION SUGGESTED > 7.0 Performed By: #### A 1C #### [facility] [address] [address] [address] Eugenia Osei Glucose [Mass/Vol] 97 mg/dL Normal [facility] Comment on above: Performed By: #### A 1C #### [facility] [address] [address] [address] Eugenia Osei HbA1c (Bld) [Mass fraction] 5.0 % Normal 4.5-6.2 [facility] Comment on above: Performed By: #### A 1C #### [facility] [address] [address] [address] Eugenia Osei LIPID PROFILEon 03-10-2022 CHOL-HDL RATIO NORM SEE BELOW Normal [facility] Comment on above: Result Comment: 3.3 - 4.4 LOW RISK 4.4 - 7.1 AVERAGE RISK 7.1 - 11.0 MODERATE RISK >11.0 HIGH RISK Performed By: #### C MP, FT3, LIPID, T4, TSH ####[facility] [address] [place] [address]DrKael Osei Cholesterol [Mass/Vol] 213 mg/dL Critically high <=200 [facility] Comment on above: Performed By: #### C MP, FT3, LIPID, T4, TSH ####[facility] [address] [place] [address]DrKael Osei Cholesterol in HDL [Mass/Vol] 42 mg/dL Normal 40-60 [facility] Comment on above: Performed By: #### C MP, FT3, LIPID, T4, TSH ####[facility] [address] [place] [address]DrKael Osei Cholesterol in LDL [Mass/Vol] 145.4 mg/dL Normal [facility] Comment on above: Performed By: #### C MP, FT3, LIPID, T4, TSH ####[facility] [address] [place] [address]Dr. Eugenia Osei Cholesterol.total/Cho lesterol in HDL [Mass ratio] 5.1 {ratio} Normal [facility] Comment on above: Performed By: #### C MP, FT3, LIPID, T4, TSH ####[facility] [address] [place] [address]Dr. Eugenia Osei HDL NORMAL > or = 60 mg/dl - LOW CARDIOVASCULAR RISK <40 mg/dl - HIGH CARDIOVASCULAR RISK Normal [facility] Comment on above: Performed By: #### C MP, FT3, LIPID, T4, TSH ####[facility] [address] [place] [address]Dr. Eugenia Osei LDL CALC NORMAL SEE BELOW Normal [facility] Comment on above: Result Comment: <100 mg/dl OPTIMAL 100 - 129 mg/dl NEAR OR ABOVE OPTIMAL 130 - 159 mg/dl BORDERLINE HIGH 160 - 189 mg/dl HIGH >190 mg/dl VERY HIGH Performed By: #### C MP, FT3, LIPID, T4, TSH ####[facility] [address] [place] [address]Dr. Eugenia Osei Triglyceride [Mass/Vol] 128 mg/dL Normal <=150 [facility] Comment on above: Performed By: #### C MP, FT3, LIPID, T4, TSH ####[facility] [address] [place] [address]Dr. Eugenia Osei VLDL CALC 25.6 mg/dL Normal [facility] Comment on above: Performed By: #### C MP, FT3, LIPID, T4, TSH ####[facility] [address] [place] [address]Dr. Eugenia Osei PROF 14(COMP METB)on 022 Albumin [Mass/Vol] 4.3 g/dL Normal 3.4-5.0 [facility] Comment on above: Performed By: #### C MP, FT3, LIPID, T4, TSH ####[facility] [address] [place] [address]Dr. Eugenia Osei Albumin/Globulin [Mass ratio] 1.1 {ratio} Normal [facility] Comment on above: Performed By: #### C MP, FT3, LIPID, T4, TSH ####[facility] [address] [place] [address]Dr. Eugenia Osei ALP [Catalytic activity/Vol] 98 U/L Normal 46-116 [facility] Comment on above: Performed By: #### C MP, FT3, LIPID, T4, TSH ####[facility] [address] [place] [address]Dr. Cristabailey Osei ALT [Catalytic activity/Vol] 23 U/L Normal 14-59 [facility] Comment on above: Performed By: #### C MP, FT3, LIPID, T4, TSH ####[facility] [address] [place], [place] [address]Dr. Eugenia Osei Anion gap [Moles/Vol] 12.9 mmol/L Normal [facility] Comment on above: Performed By: #### C MP, FT3, LIPID, T4, TSH ####[facility] [address] [place], [place] [address]Dr. Cristabailey Osei AST [Catalytic activity/Vol] 16 U/L Normal 15-37 [facility] Comment on above: Performed By: #### C MP, FT3, LIPID, T4, TSH ####[facility] [address] [place], [place] [address]Dr. Eugenia Osei Bilirubin [Mass/Vol] 0.7 mg/dL Normal 0.2-1.0 [facility] Comment on above: Performed By: #### C MP, FT3, LIPID, T4, TSH ####[facility] [address] [place], [place] [address]Dr. Eugenia Osei Calcium [Mass/Vol] 8.9 mg/dL Normal 8.5-10.1 [facility] Comment on above: Performed By: #### C MP, FT3, LIPID, T4, TSH ####[facility] [address] [place] [address]Dr. Eugenia Osei Chloride [Moles/Vol] 103 mmol/L Normal 98-107 [facility] Comment on above: Performed By: #### C MP, FT3, LIPID, T4, TSH ####[facility] [address] [place] [address]Dr. Eugenia Osei CO2 [Moles/Vol] 30.0 mmol/L Normal 21.0-32.0 [facility] Comment on above: Performed By: #### C MP, FT3, LIPID, T4, TSH ####[facility] [address] [place] [address]Dr. Eugenia Osei Creatinine [Mass/Vol] 0.81 mg/dL Normal 0.55-1.02 [facility] Comment on above: Performed By: #### C MP, FT3, LIPID, T4, TSH ####[facility] [address] [place], [place] [address]Dr. Eugenia Osei EGFR-AF ESTONIAN >60 Normal >=60 [facility] Comment on above: Performed By: #### C MP, FT3, LIPID, T4, TSH ####[facility] [address] [place], [place] [address]Dr. Eugenia Osei EGFR-NON AF ESTONIAN >60 Normal >=60 [facility] Comment on above: Performed By: #### C MP, FT3, LIPID, T4, TSH ####[facility] [address] [place] [address]Dr. Eugenia Osei Globulin (S) [Mass/Vol] 3.8 g/dL Normal [facility] Comment on above: Performed By: #### C MP, FT3, LIPID, T4, TSH ####[facility] [address] [place] [address]Dr. Eugenia Osei Glucose [Mass/Vol] 86 mg/dL Normal 74-106 [facility] Comment on above: Performed By: #### C MP, FT3, LIPID, T4, TSH ####[facility] [address] [place] [address]Dr. Eugenia Osei Potassium [Moles/Vol] 3.9 mmol/L Normal 3.5-5.1 [facility] Comment on above: Performed By: #### C MP, FT3, LIPID, T4, TSH ####[facility] [address] [place] [address]Dr. Eugenia Osei Protein [Mass/Vol] 8.1 g/dL Normal 6.1-8.2 [facility] Comment on above: Performed By: #### C MP, FT3, LIPID, T4, TSH ####[facility] [address] [place], [place] [address]Dr. Eugenia Osei Sodium [Moles/Vol] 142 mmol/L Normal 136-145 [facility] Comment on above: Performed By: #### C MP, FT3, LIPID, T4, TSH ####[facility] [address] [place], [place] [address]Dr. Eugenia Osei Urea nitrogen [Mass/Vol] 11.0 mg/dL Normal 7.0-18.0 [facility] Comment on above: Performed By: #### C MP, FT3, LIPID, T4, TSH ####[facility] [address] [place], [place] [address]Dr. Eugenia Osei Urea nitrogen/Creatinine [Mass ratio] 13.6 mg/mg Normal [facility] Comment on above: Performed By: #### C MP, FT3, LIPID, T4, TSH ####[facility] [address] [place], [place] [address]Dr. Eugenia Osei T4on 03-10-2022 T4 [Mass/Vol] 8.40 ug/dL Normal 4.80-13.[address] [facility] Comment on above: Performed By: #### C MP, FT3, LIPID, T4, TSH ####[facility] [address] [place], [place] [address]Dr. Eugenia Osei TSHon 03-10-2022 TSH 1.448 uIU/mL Normal 0.470-4.[address] [facility] Comment on above: Performed By: #### C MP, FT3, LIPID, T4, TSH ####[facility] [address] [place], [place] [address]KxDr. Eugenia Osei TSH RANGE SEE BELOW Normal [facility] Comment on above: Result Comment: <0.3 4 UIU/ml HYPERTHYROID 0.34-5.60 UIU/ml EUTHYROID >5.60 UIU/ml HYPOTHYROID Performed By: #### C MP, FT3, LIPID, T4, TSH ####[facility] [address] [place], [place] [address]Dr. Eugenia Osei VITAMIN D 25 OHon 03-10-2022 VIT D 25-OH 63.4 ng/mL Normal [facility] Comment on above: Performed By: #### V ITAD #### [facility] [address] [id number] Eugenia Osei VIT D RANGES SEE BELOW Normal [facility] Comment on above: Result Comment: <20 ng/mL Vit D deficient 20 - <30 ng/mL Vit D insufficient 30 - 100 ng/mL Vit D sufficient >100 ng/mL Potential Toxicity Performed By: #### V ITAD #### [facility] [address] [place], [place] [address] Dr. Eugenia Osei Cov[facility]19 [facility] ([facility])on SARS-CoV-2 (COVID-19) RNA KELLI+probe Ql (Unsp spec) Not detected Normal NOT DETECTED [facility] Comment on above: Result Comment: This test is not yet approved or cleared by the [place] FDA. When there are no FDA-approved or cleared tests available, and other criteria are met, FDA can make tests available under an emergency access mechanism called an Emergency Use Authorization (EUA). The EUA for this test is supported by the [employer] of Health and Human Service's (HHS's) declaration [...] SARS-CoV-2. Performed By: #### C VDTB #### [facility] [address] [place] [address] Dr. Eugenia Osei INFLUENZA A AND B AGon 02-11 [facility] SEE BELOW Normal [facility] Comment on above: Result Comment: Nega tive for Flu A protein angiten. Infection due to Flu A cannot be ruled out. Flu A angiten in the sample may be below the detection limit of the test. Performed By: #### I NFLUAB #### [facility] [address] [place] [address] Dr. [facility] Normal [facility] Comment on above: Result Comment: Nega tive for Flu B protein antigen. Infection due to Flu B cannot be ruled out. Flu B antigen in the sample may be below the detection limit of the test. Performed By: #### I NFLUAB #### [facility] [address] [place] [address] Dr. Eugenia Osei INFLUENZA A AG Negative Normal NEGATIVE SEE COMMENT [facility] Comment on above: Performed By: #### I NFLUAB #### [facility] [address] [place] [address] Dr. Eugenia Osei INFLUENZA B AG Negative Normal NEGATIVE SEE COMMENT [facility] Comment on above: Performed By: #### I NFLUAB #### [facility] [address] [place] [address] Dr. Eugenia Osei INTERNAL CONTROLS Within Normal Limits Normal Wi thin Normal Limits [facility] Comment on above: Performed By: #### I NFLUAB #### [facility] [address] [place] [address] Dr. Eugenia Osei No Panel Informationon 02-06 [facility] Vital Signs Date Time Vital Sign Value Performing Clinician Kathi roldan 09-25-2021 14:45-0500 Body height 160.02 cm Tolu Harris Other [facility] Other 09-25-2021 14:45-0500 Body mass index (BMI) [Ratio] 27.58 kg/m2 Tolu Harris Other [facility] Other 09-25-2021 14:45-0500 Body weight 70.63 kg Tolu Harris Other [facility] Other Encounters Encounter Date Encounter Type Care Provider Facility Start: 01-26-2024 End: 01-27-2024 ambulatory Radha J Amber Facility:[facility] Start: 01-26-2024 End: 01-26-2024 Lab Drop off Radha J Amber [facility] Start: 08-23-2023 End: 08-24-2023 ambulatory Radha J Amber Facility:[facility] Start: 08-23-2023 End: 08-23-2023 Patient encounter procedure Radha J Amber [facility] Start: 08-04-2023 End: 08-05-2023 ambulatory Radha J Amber Facility:[facility] Start: 07-21-2023 End: 07-21-2023 Telemedicine consultation with patient Mariama Noonan DO Work Phone: [facility] Start: 07-21-2023 End: 07-22-2023 ambulatory Mariama Noonan DO Work Phone: Neurology Comment on above: Migraine without aur a and without status migrainosus, not intractable (Primary Dx) Start: 07-21-2023 End: 07-21-2023 Lab Drop off Radha J Amber [facility] Start: 12-22-2022 End: 12-23-[address] BJ [...] without abnormal findings DR BJ WILSON . [facility] Start: 03-12-2022 End: 03-12-[address] BJ [...] 09-25-2021 End: 09-25-2021 ambulatory Tolu Harris Other [facility] Other Start: 09-25-2021 Office outpatient ne w 30 minutes Tolu Harris [facility] Start: 02-06-2021 End: 02-06-2021 Subsequent hospital visit by physician [facility] Work Phone: Radiology Comment on above: Thunderclap headache [G44.53] Procedures Date Procedure Procedure Detail Performing Clinician Start: 02-06-2021 Ct angiography head w/contrast/noncontrast Mariama Noonan DO Work Phone: Start: 02-06-2021 Ct angiography neck w/contrast/noncontrast Mariama James DO Work Phone: Plan of Treatment Date Care Activity Detail Author Start: 07-09-2023 Influenza vaccination [facility] Start: 11-08-2022 DEPRESSION ASSESSMENT [facility]ION [facility] Start: 07-09-2022 Influenza vaccination INFLUENZA (#1) [facility] Start: 01-16-2022 Covid-19 Vaccine (4 - Moderna series) Covid-19 Vaccine (4 - Moderna series) [facility] Start: 11-08-2021 DEPRESSION ASSESSMENT DEPRESSION ASS [facility] Start: 04-12-2021 COVID-19 VACCINE (3 - Booster for Moderna series) COVID-19 VACCINE (3 - Booster for Moderna series) [facility] Start: 04-12-2021 COVID-19 VACCINE (3 - Moderna series) COVID-19 VACCINE (3 - Moderna series) [facility] Start: 2017 SHINGRIX VACCINE (1 of 2) SHINGRIX V ACCINE (1 of 2) [facility] Start: 2012 COLOGUARD (FIT-DNA) COLOGUARD (FIT-D NA) [facility] Start: 2012 Colonoscopy COLONOSCOPY [facility] Start: 2012 COLORECTAL CANCER SCREENING COLORECTAL CANCER SCREENING [facility] Start: [address] COLONOGRAPHY [facility] Start: 2012 DIABETES SCREEN DIABETES SCREEN [facility] Start: 2012 Diabetes Screening Diabetes Screenin g [facility] Start: 2012 FECAL OCCULT BLOOD FECAL OCCULT BLOO D [facility] Start: 2012 Lipid 1996 panel - S mike or Plasma Lipid Screening [facility] Start: 2012 LIPID SCREEN LIPID SCREEN [facility] Start: 2012 SIGMOIDOSCOPY SIGMOIDOSCOPY [facility] Start: 2007 Mammography [facility] Start: 1997 HPV TESTING HPV TESTING [facility] Start: 1988 PAP TESTING PAP TESTING [facility] Start: 1986 Urine microalbumin profile [facility] Start: 1985 HEPATITIS C SCREENING HEPATITIS C SC REENING [facility] Start: 1985 HIV SCREENING HIV SCREENING [facility] Start: 1967 HEPATITIS B (1 of 3 - 3-dose series) HEPATITIS B (1 of 3 - 3-dose series) [facility] Start: 1967 Hepatitis B Vaccine (1 of 3 - 3-dose series) Hepatitis B Vaccine (1 of 3 - 3-dose series) [facility] Immunizations Immunization Date Immunization Notes Care Provider Fa [facility] 10-28-2021 influenza virus vacc ine, unspecified formulation Mariamaalisia Noonan DO Work Phone: [facility] Payers Date Payer Category Payer Unknown [id number] 1967 Unknown [id number] 2.16.84 [id number] 1967 Unknown [id number] 2.16.84 [id number] 1967 Unknown [id number] 2.16.84 [id number] 1967 Unknown [id number] 2.16.84 0.1.025134.3.579.2.593 1967 Unknown [id number] 2.16.84 0.1.518799.3.579.2.593 1967 Unknown [id number] 2.16.84 0.1.397033.3.579.2.593 1967 Unknown [id number] 2.16.84 0.1.836022.3.579.2.593 1967 Unknown [id number] 2.16.84 0.1.400604.3.579.2.593 1967 Unknown [id number] 2.16.84 0.1.685438.3.579.2.593 1967 Unknown [id number] 2.16.84 0.1.327714.3.579.2.593 1967 Unknown [id number] 2.16.84 0.1.903846.3.579.2.593 1967 Unknown [id number] 2.16.8 40.1.811793.3.579.2.727 1967 Unknown [id number] 2.16.8 40.1.343113.3.579.2.727 1967 Unknown [id number] 2.16.8 40.1.145141.3.579.2.727 1967 Unknown [id number] 2.16.8 40.1.243782.3.579.2.727 1959 Unknown [id number] 2. [id number] Social History Date Type Detail Facility Start: 01-07-2021 End: 07-21-2023 Sex Assigned At [facility] Start: 01-07-2021 [facility] Work Phone: Start: 01-07-2021 Tobacco use and exposure Smokeless tobacco non-user [facility] Work Phone: Start: 1965 Sex Assigned At Female [facility] Start: 01-07-2021 End: 07-21-2023 History of Social function [facility] Adult Depression Screening Assessment 0 [facility] Start: 01-23-2021 Gender identity Identifies as female gender (finding) [facility] Start: 01-23-2021 Sexual orientation Heterosexual (fin ding) [facility] Start: 12-08-2020 End: 01-07-2021 Exposure to SARS-CoV-2 (event) Not sure [facility] Tobacco smoking status No Smokin g Status Entered [facility] Clinical Notes 01-23-2021 to 01-26-2024 Mariama Noonan DO - 07/21/2023 4:03 PM EDTTelephone Encounter - Maryan Garcia - 10/12/2022 12:54 PM EST Note Date & Type Note Facility 01-26-2024 Evaluation + Plan note Diagnostic Tests PendingPAP [id number] 01/26/24 [facility] 07-21-2023 Note HNO ID: [id number] Author: Noonan, Mariama P, DO Service: ? [...] Motrin) Naproxen sodium (Aleve) Mariama Noonan DO [facility] [place] Department [facility] [address] [place] [address], [place] [address] Level of service: Est level 2 (10-19 min). Time spent 19 min on the day of service, which included preparing to see the patient, [id number] patient care, completing clinical documentation, obtaining and/or reviewing separately obtained history, and counseling and educating the patient/family/caregiver. Medical Decision Making: Medical Decision Making Level: 1 - N/A I have communicated my name and active licensure. The patient's identity and physical location were verified at the time of this visit. Either the patient or their legal physician representative has been informed of the risks and benefits of -- and alternatives to -- treatment through a remote evaluation and consents to proceed with the evaluation remotely. cc: Bj [place] [address] [place] [address] Phone: [phone] (more content not included)... [facility] 07-21-2023 History of Presen t illness Narrative [...] Motrin) Naproxen sodium (Aleve) Mariama Noonan DO [facility] [place] Department [facility] [id number] [place] [address], [address] [address] Level of service: Est level 2 (10-19 min). Time spent 19 min on the day of service, which included preparing to see the patient, [id number] patient care, completing clinical documentation, obtaining and/or reviewing separately obtained history, and counseling and educating the patient/family/caregiver. Medical Decision Making: Medical Decision Making Level: 1 - N/A I have communicated my name and active licensure. The patient's identity and physical location were verified at the time of this visit. Either the patient or their legal physician representative has been informed of the risks and benefits of -- and alternatives to -- treatment through a remote evaluation and consents to proceed with the evaluation remotely. cc: Bj [place] [address] [place] [address] documented in this encounter [facility] 10-12-2022 Miscellaneous Notes Patient last seen on 07/31/21. Overdue for follow up. documented in this encounter [facility] 05-22-2022 Note PROCEDURE: XR HIP RT 2 3V WO PELVIS COMPARISON: None. HISTORY: Pain in right hip joint FINDINGS: BONES:No fracture, acute abnormality, or significant arthropathy. SOFT TISSUES:Negative. No visible soft tissue swelling. EFFUSION:None visible. OTHER: Negative. IMPRESSION: No acute abnormality Electronically authenticated by: NORMA MATTSON Date: 2022-05-21 22:03 [facility] 09-25-2021 Evaluation note Encounter Date Diagnosis Assessment [...] on its own. Patient agreeable with plan [employer] Other 03-18-2021 History of Past illness Narrative* Problem Noted Date Diagnosed Date Resolved Date Primary cough headache 01/23/202107/21 Thunderclap headache 01/23/2021 023 New daily persistent headache 01/23/2021 07/21/2023 documented as of this encounter (statuses as of 07/22/2023) [facility] Future Appointments Appointment Date:08/04/2023 08:30:00 AM Scheduled Provider: Location:FT.MAMMOGRAM Appointment Type:MA Screen (FT) Appointment Date:08/04/2023 09:00:00 AM Scheduled Provider: Location:.BD Appointment Type:BD Bone Density () Diagnostic Tests Pending * PAP [id number] 07/21/23 Future Scheduled Tests Radiology* BD Bone Density DEXA 08/04/23 * MA Mamm Screen w/CAD if perf and 3D Shakeel [facility]04/[facility] Diagnosis Thunderclap headache Headache New daily persistent headache Primary cough headache Exertional headache Headache Dissection of carotid artery (HCC) Dissection of carotid artery documented in this encounter [facility] note* Diagnosis Migraine without aura and without status migrainosus, not intractable- Primary Migraine without aura, without mention of intractable migraine without mention of status migrainosus documented in this encounter [facility] general Narrative - Reported* Type Description Date Medical History brain tumor Surgical History brain tumor removal 2000 Hospitalization History See Above Hospitalization History colitis [employer] Other Hospital course Narrative No data available for this section [facility] No data available for this section [facility] No data available for this section [facility] Diagnostic Procedure Only (Routine) - Closed Specialty Diagnoses / Procedures Referred By Deyanira t Referred To Contact CT IMAGING Diagnoses Dissection of carotid artery (HCC) Thunderclap headache Procedures CTA NECK W IVCON CTA NECK, W/WO C, W/3D CTA HEAD WWO C, W/3D Noonan, Mariama P, DO [address] [place] [address] Ct Imaging Referral ID Status Reason Start Date Expiration Date V isits Requested Visits Authorized [id number] Closed Auto-Generate d Referral 01/27/2021 07/26/2021 1 1 * Diagnostic Procedure Only (Routine) - Closed Specialty Diagnoses / Procedures Referred By Contac t Referred To Contact CT IMAGING Diagnoses Thunderclap headache New daily persistent headache Primary cough headache Exertional headache Procedures CTA HEAD WO/W IVCON CTA HEAD WWO C, W/3D Noonan, Mariama P, DO [address] [place] [address] Ct Imaging Referral ID Status Reason Start Date Expiration Date V isits Requested Visits Authorized [id number] Closed Auto-Generate d Referral 01/27/2021 07/26/2021 1 1 [facility] Diagnostic Procedure Only (Routine) - Closed Specialty Diagnoses / Procedures Referred By Contac t Referred To Contact CT IMAGING Diagnoses Dissection of carotid artery (HCC) Thunderclap headache Procedures CTA NECK W IVCON CTA NECK, W/WO C, W/3D CTA HEAD WWO C, W/3D Noonan, Mariama P, DO [address] [place] [address] Ct Imaging Referral ID Status Reason Start Date Expiration Date V isits Requested Visits Authorized [id number] Closed Auto-Generate d Referral 01/27/2021 07/26/2021 1 1 [facility] Summary Purpose Family History No [...] or prosecute any alcohol or drug abuse patient.[facility] the event this information is protected by the Federal Confidentiality of Alcohol and Drug Abuse Patient Records regulations: The Federal rules restrict any use of the information to criminally investigate or prosecute any alcohol or drug abuse patient.[facility] the event this information is protected by the Federal Confidentiality of Alcohol and Drug Abuse Patient Records regulations: The Federal rules restrict any use of the information to criminally investigate or prosecute any alcohol or drug abuse patient.[facility] Care Teams (unrecognized sec tion and content) Advertising Photographer Relationship Specialty Start Date End Date Bj Wilson MD [address] [place] [address] PCP - General Family Medicine 01/01/21 Bj Wilson MD [address] [place] [address] Referring Family Medicine 01/01/21 Advertising Photographer Relationship Specialty Start Date End Date Bj Wilson MD PCP - General Family Medicine 01/01/21 Bj Wilson MD Referring Family Medicine 01/01/21 Advertising Photographer Relationship Specialty Start Date End Date Bj Wilson MD PCP - General Family Medicine 01/01/21 Bj Wilson MD Referring Family [facility] 01/01/21 INFORMATION SOURCE (unrecogn ized section and content) DATE CREATED AUTHOR 12/27/2022 [facility] DATE CREATED AUTHOR AUTHOR'S ORGANIZ ATION 07/23/2023 [facility] DATE CREATED AUTHOR AUTHOR'S ORGANIZ ATION 02/02/2024 [facility] FOR RECORDS PERTAINING TO PATIENTS WHO [...] BE BASED ON THE PRIMARY CLINICAL RECORDS. [facility]. provides no warranty or guarantee of the accuracy or completeness of information in this document.
[2024-08-16 10:02] LABS: Basophils Percent Auto 0.7 % (0.2-2.0); Eosinophils Absolute Auto 0.1 10^3/uL (0.0-0.7); Eosinophils Percent Auto 1.1 % (0.9-7.0); Hematocrit 43.4 % (36.0-48.0); Hemoglobin 14.9 g/dL (12.0-16.0); Immature Granulocytes Abs Auto 0.01 10^3/uL (0.00-0.03); Immature Granulocytes Pct Auto 0.2 % (0.0-0.5); Lymphocytes Absolute Auto 1.6 10^3/uL (1.2-3.8); Lymphocytes Percent Auto 34.4 % (20.5-60.0); Mean Corpuscular HGB Conc 34.3 g/dL (29.9-35.2); Mean Corpuscular Hemoglobin 30.5 pg (26.7-34.0); Mean Corpuscular Volume 88.8 fL (81.0-99.0); Mean Platelet Volume 9.7 fL (9.5-13.5); Monocytes Absolute Auto 0.3 10^3/uL (0.3-0.8); Monocytes Percent Auto 6.6 % (1.7-12.0); Neutrophils Absolute Auto 2.6 10^3/uL (1.4-6.5); Platelet Count 202 10^3/uL (150-450); Red Blood Count 4.89 10^6/uL (4.20-5.40); Red Cell Distribution Width 11.9 % (11.0-15.0); White Blood Count 4.5 10^3/uL (4.0-11.0)
[2024-08-16 11:04] LABS: Alanine Aminotransferase 30 U/L (14-59); Albumin Globulin Ratio 1.1; Alkaline Phosphatase 88 U/L (46-116); Aspartate Amino Transferase 15 U/L (15-37); BUN Creatinine Ratio 14.8; Bilirubin Total 0.8 mg/dL (0.2-1.0); Calcium 9.5 mg/dL (8.5-10.1); Carbon Dioxide 23.5 mmol/L (21.0-32.0); Chloride 104 mmol/L (98-107); Estimated GFR (African America >60 (>=60 mL/min/1.73m^2); Estimated GFR (Non-African Ame 52 (>=60 mL/min/1.73m^2); Globulin 3.5 g/dL; Glucose 90 mg/dL (74-106); Potassium 3.5 mmol/L (3.5-5.1); Sodium 139 mmol/L (136-145); Total Protein 7.5 g/dL (6.4-8.2); Troponin I High Sensitivity 12.2 pg/mL (4.0-51.3)
== END 2024-08-16 09:28 | disposition home or self-care (01) ==
LOC: CARD 09:43
PROVIDERS: PCP Family Medicine; Visit Provider Family Medicine
DX: R00.2 Palpitations (principal); I49.3 Ventricular premature depolarization; R42 Dizziness and giddiness; I10 Essential (primary) hypertension
CPT/HCPCS: 36415; 80053; 82306; 83540; 83880; 84436; 84443; 84481; 84484; 85025; 93246

== ENCOUNTER 2024-08-23 08:48 | Outpatient (OUT) | payer OTHER, SELFPAY ==
--- NOTE | 2024-08-23 08:53 | CA_ITS ---
Patient Name: NIC CONROY MR#: [id number] : 1965 Exam Date: 08/23/2024 Ordering Doctor: DR BJ GAR . ECHOCARDIOGRAM REPORT PROCEDURE: CA ECHO DOPPLER COMPLETE INDICATIONS: Palpitations, Multifocal PVCs COMPARISON: None. DESCRIPTION: COMPLETE ECHOCARDIOGRAM Real-time transthoracic echocardiography with 2D, M-mode, spectral and color flow Doppler performed. QUALITY: Technical quality was good. LEFT VENTRICLE: Normal chamber size. Mild concentric left ventricular hypertrophy. Global left ventricular systolic function is normal. LV EF: Estimated left ventricular ejection fraction is 65% DIASTOLIC: Grade 2 diastolic dysfunction. ATRIAL SEPTUM: LEFT ATRIUM: Mild dilatation. RIGHT ATRIUM: Mild dilatation. RIGHT VENTRICLE: Normal chamber size. Normal right ventricular systolic function. TRICUSPID VALVE: Normal mobility and thickness. No stenosis with trivial regurgitation. Mild pulmonary hypertension. RVSP 37 mmHg MITRAL VALVE: Anterior and posterior mitral valve leaflet prolapse. There is no mitral annular calcification. Mild mitral regurgitation. AORTIC VALVE: Normal trileaflet appearance. No visible sclerosis. Normal leaflet mobility. No evidence of aortic valve stenosis. No aortic regurgitation. AORTIC ROOT: Normal diameter and appearance. PULMONIC VALVE: Normal thickness and mobility. No stenosis. Trivial regurgitation. PERICARDIUM: Small anterior pericardial effusion. IVC: Collapses with inspirations. Normal size. PLEURA: CONCLUSION: 1. Mild concentric left ventricular hypertrophy with normal systolic function. LVEF is estimated at 65%. 2. Normal right ventricular size and systolic function. 3. Mild biatrial dilatation. 4. Mild bileaflet mitral valve prolapse with mild regurgitation. 5. Mild tricuspid regurgitation. 6. Mildly elevated right-sided pressures. 7. Small mostly anterior pericardial effusion. Adult Echocardiography Procedure Report Left Ventricle LVEDD (3.7 - 5.6 cm): 5.02 cm LVESD (2.2 - 4.0 cm): 3.56 cm LVIVS thickness (0.6 - 1.2 cm): 0.98 cm LVPW thickness (0.5 - 1.0 cm): 1.24 cm e': 0.06 m/s E - e': 8.23 LVOT Max Gradient: 4.35 mm[Hg] LVOT Area (cm2): 1.04 m/s Peak Velocity (LVOT): 1.04 m/s Mean Velocity (LVOT): 0.68 m/s LVOT Diameter 1.99 cm Left Ventricular Ejection Fraction: 65 % Left Atrium LA Volume Index (2D A2C): 44.10 ml/m2 Left Atrium Systolic Dimension: 3.68 cm Mitral Valve MV E to A Ratio: 0.93 Mitral Valve A-Wave Peak Velocity: 0.53 m/s Mitral Valve E-Wave Peak Velocity: 0.50 m/s Right Ventricle RV Internal Diastolic Dimension: 3.25 cm Aorta AO Root Diam: 3.38 cm Ascending Ao Diam: 2.89 cm Aortic Valve AoV Area (Peak Ethan): 2.61 cm2, 2.61 cm2 AoV Area (VTI): 2.14 cm2, 2.14 cm2 Peak Velocity(Antegrade Flow): 1.24 m/s Peak Gradient(Antegrade Flow): 6.18 mm[Hg] Mean Velocity(Antegrade Flow): 0.84 m/s Mean Gradient(Antegrade Flow): 3.24 mm[Hg] Velocity Time Integral: 33.85 cm Tricuspid Valve Peak Velocity (Regurgitant Flow): 2.45 m/s, 2.92 m/s, 2.68 m/s Pulmonic Valve Mean Gradient: 1.71 mm[Hg] Mean Velocity: 0.62 m/s Peak Velocity: 0.81 m/s, 0.70 m/s Peak Gradient: 2.63 mm[Hg], 1.94 mm[Hg] Right Atrium Right Atrium Systolic Pressure: 25.98 ml, 25.98 ml Dictated by: Niles Meng M.D. on 08/23/2024 at 13:21 Approved by: Niles Meng M.D. on 08/23/2024 at 13:27
--- OUTSIDE RECORDS SUMMARY | 2024-08-23 09:10 | XMS_ITS | CCD ---
Author Organization [facility] Care Team Providers Care Sales 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 [employer] Name Role Phone Tolu Harris Unavailable Bj Wilson MD Primary Care Provider [phone] Bj Wilson MD Unavailable CONG ., [...] Unavailabl Bj Duckworth MD Primary Care Provider [phone] Bj Wilson MD Unavailable NONE, XXXX Primary Care Physician Unavailab BJ Schwartz Primary Care Unavailable MARIAMA NOONAN Attending Unavailable Bj Wilson Primary Care Physician [phone] Amber, Radha J Attending Unavailable Amber, Radha [...] Morphine; Translations: [MORPHINE] Drug Allergy 01-07-2021 Itching [facility] Work Phone: (1 source) Morphine Drug Allergy 12-03-2020 [facility] Repository Medications Current Medications Medication Drug [...] Onset: 02-21-2022 Episodic Other aftercare (1 source) senior care (current) use of aspirin; Translations: [INTERMEDIATE CURRENT USE OF ASPIRIN] Onset: 02-24-2022 Episodic Other aftercare (1 source) Other [place] (current) drug therapy; Translations: [OTH INTERMEDIATE CURRENT DRUG THERAPY] Onset: 02-24-2022 Episodic Other [...] Name Value Interpretation Reference Range Facility PAP [id number] 02-01-2024 Cytology report Cyto stain Doc (Cvx/Vag) Note Invalid Interpretation Code [facility] Comment on above: Result Comment: TEST S RESULT FLAG UNITS REF RANGE LAB Clinician Provided Cytology Information Source.............Endocervix LMP / Prev Treat...None Other..............Other No. of containers..01 ThinPrep Vial DIAGNOSIS: 01 NEGATIVE FOR INTRAEPITHELIAL LESION OR MALIGNANCY. CELLULAR CHANGES ASSOCIATED WITH ATROPHY ARE PRESENT. Specimen adequacy: 01 Satisfactory for evaluation. Endocervical component may not be distinguished in cases of atrophy. Performed by: Radha Mendenhall Commercial Loan Closer (ASC) . 01 Note: Note 01 The [...] <-Panic Low,>-Panic High,A-Abnormal,AA-Critical Abnormal Performed at: [address] [address] Suzan Bauer MD, Performed By: #### 3 [id number] #### [facility] [address] [place] [address] HPV 16+18+31+33+35+39+45+ 51+52+56+58+59+66+68 DNA Probe+sig amp Ql (Cvx) Negative Invalid Interpretation Code Negative [facility] Comment on above: Result Comment: This nucleic acid amplification test detects fourteen high-risk HPV types (16,18,31,33,35,39,45,51,52,56,58,59,66,68) without differentiation. Performed at: [address] [id number] MD Juancarlos Mares Performed at: =G [address] [id number] MD Juancarlos Mares Performed By: #### 3 [id number] #### [facility] [address] [place] [address] PAP [id number] 01-26-2024 Collection Technique BRUSH-SPATULA Normal F [facility] Comment on above: Performed By: #### 3 [id number] #### [facility] [address] [place] [address] Gynecological Body Site ENDOCERVIX Normal [facility] Comment on above: Performed By: #### 3 [id number] #### [facility] [address] [place] [address] Other Patient Information [id number] Normal [facility] Comment on above: Performed By: #### 3 [id number] #### [facility] [address] [facility] [place] [address] Previous Cytology Negative Normal [facility] Comment on above: Performed By: #### 3 [id number] #### [facility] [address] [place] [address] Previous Treatment NONE Normal [facility] Comment on above: Performed By: #### 3 [id number] #### [facility] [address] [place] [address] Physician Orderon 01-26-2024 Physician Order [id number] 7#1.00TIFF Normal [facility] CHEMISTRYOrdered By: SYSTEM SYSTEM on 08-23-2023 25-hydroxyvitamin D3 [Mass/Vol] 54.9 ng/mL Normal 30.0 - 100.0 ng/mL FT [facility] Comment on above: Interpretive Data: Vitamin D deficiency has been defined as a level of serum 25-OH vitamin D less than 20 ng/mL (1,2) by the Oxford of Medicine and an Endocrine Society practice guideline. The Endocrine Society further defined vitamin D insufficiency as a level between 21 and 29 ng/mL (2). 1. IOM (Oxford of Medicine). 2010. Dietary reference intakes for [...] 75 mL/min/1.73 m2 Normal >=59mL/min/1. 73 m2 [facility] Chem S Comment on above: Interpretive Data: [...] 08-23-2023 Calcium [Mass/Vol] 9.6 mg/dL Normal 8.9-11.1 [facility] Comment on above: Performed By: #### 2 973214, 1529190, 2522712, 60957875, 832291544, 5313368, 9036371 #### [facility] [address] [place] [address] Consent for Treatmenton 08-08 Consent for Treatment [id number] #1.00TIFF Normal [facility] Creatinineon 08-23-2023 Creatinine [Mass/Vol] 0.9 mg/dL Normal 0.5-1.3 [facility] Comment on above: Performed By: #### 2 607390, 9881035, 7921712, 90199053, 804758200, 0021773, 8117261 #### [facility] [address] [place] [address] Glu Fastingon 08-23-2023 Glucose [Mass/Vol] 92 mg/dL Normal 55-99 [facility] Comment on above: Performed By: #### 2 191051, 8988840, 5386447, 09591915, 456079433, 5352880, 5622125 #### [facility] [address] [place] [address] Lipid Panelon 08-23-2023 Cholesterol [Mass/Vol] 257 mg/dL High 120-200 [facility] Comment on above: Performed By: #### 2 672653, 7408887, 0339318, 86701755, 648906824, 1325711, 0667801 #### [facility] [address] [place] [address] Cholesterol in HDL [Mass/Vol] 43 mg/dL Invalid Interpretation Code [facility] Comment on above: Result Comment: HDL > or equal to 60 mg/dL: Low cardiovascular risk HDL < 40 mg/dL : High cardiovascular risk Performed By: #### 2 160423, 2972071, 6526031, 78673863, 759050268, 9202092, 5209255 #### [facility] [address] [place] [address] Cholesterol in LDL [Mass/Vol] 175 mg/dL High <=129 [facility] Comment on above: Performed By: #### 2 958948, 9133797, 2749127, 98100518, 517110040, 8241391, 8955492 #### [facility] [address] [place] [address] Cholesterol in VLDL [Mass/Vol] 45 mg/dL High 7-40 [facility] Comment on above: Performed By: #### 2 807618, 9449926, 3709457, 54815220, 985074643, 1894225, 0535423 #### [facility] [address] [place] [address] Triglyceride [Mass/Vol] 224 mg/dL High <=149 [facility] Comment on above: Performed By: #### 2 613816, 7551718, 0869920, 44853963, 904545698, 3128361, 0514864 #### [facility] [address] [place] [address] Physician Orderon 08-23-2023 Physician Order [id number] 7#1.00TIFF Normal [facility] TSHon 08-23-2023 TSH Qn 2.36 m[IU]/L Normal 0.34-5.60 [facility] Comment on above: Performed By: #### 2 694802, 0303095, 2482906, 31047317, 217849520, 9052950, 7960692 #### [facility] [address] [place] [address] Vitamin D 25 Hydroxyon 08-23 25-hydroxyvitamin D3 [Mass/Vol] 54.9 ng/mL Normal 30.0-100.0 [facility] Comment on above: Result Comment: Vit min D deficiency has been defined as a level of serum 25-OH vitamin D less than 20 ng/mL (1,2) by the Oxford of Medicine and an Endocrine Society practice guideline. The Endocrine Society further defined vitamin D insufficiency as a level between 21 and 29 ng/mL (2). 1. IOM (Oxford of Medicine). 2010. Dietary reference intakes for calcium and D. [place]: The National Academies Press. 2. Jammie MF, Matthew NC, Geovanna STALEY, et al. Evaluation, treatment, and prevention of vitamin D deficiency: an Endocrine Society clinical practice guideline. JCEM. 2011 May; 96 (7):1911-30. Performed By: #### 2 619512, 5207576, 9855232, 96315209, 236650408, 2114295, 0729016 #### [facility] [address] [place] [address] eGFRon 08-23-2023 GFR/1.73 sq M.predicted among non-blacks MDRD (S/P/Bld) [Vol rate/Area] 75 mL/min/1.73 m2 Normal >=59 [facility] Comment on above: Order Comment: Order added by Discern Expert. Result Comment: Certified Medical Biller jeanna kidney disease could be indicated at eGFR's of less than 60 mL/min/1.73m2. Kidney failure is indicated at less than 15 mL/min/1.73m2. Performed By: #### 2 395573, 9460204, 6513957, 72297253, 454810104, 5442719, 0347187 #### [facility] [address] [place] [address] MA Mamm Screen w/CAD if perf and [...] very important to your health. The current [place] and National Comprehensive Cancer [...] Cliff Zuleta M.D. Transcribed by: ERIK Technologist: [facility] Assessment: BI-RADS Category 2-Benign finding Recommendation: Normal interval follow-up Normal [facility] BD Bone Density DEXAon 08-04 BD Bone [...] V. Transcribed by: ERIK Technologist: YONNY Normal [facility] Consent for Treatmenton 07-10 Consent for Treatment [id number] #1.00CD:127 Normal [facility] RAD - Mammography Reporton 0 08-03-2023 RAD - Mammography Report [id number]# 1.00CD:127 Normal [facility] PAP [id number] 07-26-2023 Cytology report Cyto stain Doc (Cvx/Vag) Note Invalid Interpretation Code [facility] Comment on above: Result Comment: TEST S RESULT FLAG UNITS REF RANGE LAB Clinician Provided Cytology Information Source.............Endocervix LMP / Prev Treat...ZUT=[id number] No. of containers..01 ThinPrep Vial DIAGNOSIS: 01 NEGATIVE FOR INTRAEPITHELIAL LESION OR MALIGNANCY. Specimen adequacy: 01 Satisfactory for evaluation. Endocervical and/or squamous metaplastic cells (endocervical component) are present. Performed by: 01 Liz Viera, Commercial Loan Closer (ASCP) . 01 Note: Note 01 The [...] Low,>-Panic High,A-Abnormal,AA-Critical Abnormal Performed at: [address] [address] Suzan Bauer MD, Performed By: #### 3 [id number] #### [facility] [address] [place] [address] HPV 16+18+31+33+35+39+45+ 51+52+56+58+59+66+68 DNA Probe+sig amp Ql (Cvx) Negative Invalid Interpretation Code Negative [facility] Comment on above: Result Comment: This nucleic acid amplification test detects fourteen high-risk HPV types (16,18,31,33,35,39,45,51,52,56,58,59,66,68) without differentiation. Performed at: WB [address] [id number] MD Juancarlos Mares Performed at: =G [address] [id number] MD Juancarlos Mares Performed By: #### 3 [id number] #### [facility] [address] [place] [address] [place] [address] PAP [id number] 07-21-2023 Collection Technique BRUSH-SPATULA [facility] Comment on above: Performed By: #### 3 [id number] #### [facility] [address] [place] [address] Gynecological Body Site ENDOCERVIX Normal [facility] Comment on above: Performed By: #### 3 [id number] #### [facility] [address] [place] [address] LMP or Menopause Date [id number] Invalid Interpretation Code [facility] Comment on above: Performed By: #### 3 [id number] #### [facility] [address] [place] [address] Previous Cytology Negative Normal [facility] Comment on above: Performed By: #### 3 [id number] #### [facility] [address] [place] [address] Previous Treatment NONE Normal [facility] Comment on above: Performed By: #### 3 [id number] #### [facility] [address] [place] [address] Physician Orderon 07-21-2023 Physician Order [id number] #1.00CD:127 Normal [facility] Physician Order [id number]# 1.00CD:127 Normal [facility] PAP ACOG PANEL 2: 30 to 65on 12-01-2022 . . [facility] Comment on above: Result Comment: Perf ormed at: WB Performed By: #### 4 [id number] #### [facility] [address] [address] [address] Eugenia Osei Age Gdln ACOG Testing - [facility] Comment on above: Performed By: #### 4 [id number] #### [facility] [address] [address] [address] Eugenia Osei DIAGNOSIS: Comment [facility] Comment on above: Result Comment: NEGA TIVE FOR INTRAEPITHELIAL LESION OR MALIGNANCY. CELLULAR CHANGES ASSOCIATED WITH ATROPHY ARE PRESENT. Performed at: WB Performed By: #### 4 [id number] #### [facility] [address] [place] [address] Dr. Eugenia Osei HPV Aptima Positive Abnormal Negative [facility] Comment on above: Result Comment: This nucleic acid amplification test detects fourteen high-risk HPV types (16,18,31,33,35,39,45,51,52,56,58,59,66,68) without differentiation. Performed at: =G Performed By: #### 4 [id number] #### [facility] [address] [place] [address] Dr. Eugenia Osei HPV Genotype 16 Negative Normal Negative [facility] Comment on above: Performed By: #### 4 [id number] #### [facility] [address] [place] [address] Dr. Eugenia Osei HPV Genotype 18,45 Negative Normal Negative [facility] Comment on above: Performed By: #### 4 [id number] #### [facility] [address] [place] [address] Dr. Eugenia Osei HPV Genotype Reflex Comment Normal [facility] Comment on above: Result Comment: Obi cali, see HPV Genotype results. Performed at: WB Performed By: #### 4 [id number] #### [facility] [address] [place] [address] Dr. Eugenia Osei Methodology: Comment Normal [facility] Comment on above: Result Comment: This liquid based ThinPrep(R) pap test was screened with the use of an image guided system. Performed at: WB Performed By: #### 4 [id number] #### [facility] [address] [place] [address] Dr. Eugenia Osei Note: Comment Normal [facility] Comment on above: Result Comment: The Pap smear is a screening test designed to aid in the detection of premalignant and malignant conditions of the uterine cervix. It is not a diagnostic procedure and should not be used as the sole means of detecting cervical cancer. Both false-positive and false-negative reports do occur. . Performed at: WB Performed By: #### 4 [id number] #### [facility] [address] [address] [address] Eugenia Osei Performed by: Comment Normal [facility] Comment on above: Result Comment: Amol Baker Commercial Loan Closer (ASCP) Performed at: WB Performed By: #### 4 [id number] #### [facility] [address] [place], [place] [address] Dr. Eugenia Osei Specimen adequacy: Comment Normal [facility] Comment on above: Result Comment: Sati sfactory for evaluation. Endocervical component may not be distinguished in cases of atrophy. Performed at: WB Performed By: #### 4 [id number] #### [facility] [address] [address] [address] Eugenia Osei Covid-19 PCR ([facility])on 07-10 SARS-CoV-2 (COVID-19) RNA KELLI+probe Ql (Unsp spec) Detected Critically abnormal NOT DETECTED [facility] Comment on above: Result Comment: This test is not yet approved or cleared by the [place] FDA. When there are no FDA-approved or cleared tests available, and other criteria are met, FDA can make tests available under an emergency access mechanism called an Emergency Use Authorization (EUA). The EUA for this test is supported by the New Patient Escort of Health and Human Service's (HHS's) declaration [...] used). Performed By: #### C VDTBH #### [facility] [id number] Eugenia Osei US PELVIS AND TRANSVAGon [...] by: JOHN HAJI Date: 2022-05-31 08:32 Normal [facility] CT ABD/PELV WO W CONon 05-22 [...] NORMA MATTSON Date: 2022-05-22 15:52 Normal [facility] CULTURE URINEon 05-22-2022 CULTURE URINE Culture Observations: NO GROWTH. Normal [facility] Comment on above: Performed By: #### U RCX ####[facility] [address] [address]Dr. Eugenia Osei UA RANDOM W/MICROSCOPICon BACTERIA NONE SEEN Normal NONE SEEN [facility] Comment on above: Performed By: #### U AMIC #### [facility] [address] [address] [address] Eugenia Osei Bilirubin Ql (U) Negative Normal NEGATIVE [facility] Comment on above: Performed By: #### U AMIC #### [facility] [address] [place] [address] Dr. Eugenia Osei CAST NONE SEEN Normal NONE SEEN [facility] Comment on above: Performed By: #### U AMIC #### [facility] [address] [place] [address] Dr. Eugenia Osei Clarity (U) CLEAR Normal CLEAR [facility] Comment on above: Performed By: #### U AMIC #### [facility] [address] [place] [address] Dr. Eugenia Osei Color (U) LT. YELLOW Normal YELLOW [facility] Comment on above: Performed By: #### U AMIC #### [facility] [address] [place] [address] Dr. Eugenia Osei Crystals LM Nom (Urine sed) NONE SEEN Normal NONE SEEN [facility] Comment on above: Performed By: #### U AMIC #### [facility] [address] [place] [address] Dr. Eugenia Osei Epithelial cells LM Ql (Urine sed) RARE Normal NONE SEEN /RARE [facility] Comment on above: Performed By: #### U AMIC #### [facility] [address] [place] [address] Dr. Eugenia Osei Glucose Ql (U) Negative Normal NEGATIVE [facility] Comment on above: Performed By: #### U AMIC #### [facility] [address] [place] [address] Dr. Eugenia Osei Hemoglobin Ql (U) TRACE-INTACT Abnormal NEGATIVE [facility] Comment on above: Performed By: #### U AMIC #### [facility] [address] [place] [address] Dr. Eugenia Osei Ketones Ql (U) Negative Normal NEGATIVE [facility] Comment on above: Performed By: #### U AMIC #### [facility] [address] [place] [address] Dr. Eugenia Osei LEUKOCYTES Negative Normal NEGATIVE [facility] Comment on above: Performed By: #### U AMIC #### [facility] [address] [place] [address] Dr. Eugenia Osei MUCOUS NONE SEEN Normal NONE SEEN [facility] Comment on above: Performed By: #### U AMIC #### [facility] [address] [place] [address] Dr. Eugenia Osei Nitrite Ql (U) Negative Normal NEGATIVE [facility] Comment on above: Performed By: #### U AMIC #### [facility] [address] [place] [address] Dr. Eugenia Osei pH (U) 6.5 [pH] Normal 5-9 [facility] Comment on above: Performed By: #### U AMIC #### [facility] [address] [place] [address] Dr. Eugenia Osei RBC 0-2 Normal 0-2 [facility] Comment on above: Performed By: #### U AMIC #### [facility] [address] [place] [address] Dr. Eugenia Osei SPEC GRAVITY <=1.005 Abnormal 1.005-<=1.025 [facility] Comment on above: Performed By: #### U AMIC #### [facility] [address] [place] [address] Dr. Eugenia Osei UA PROTEIN Negative Normal NEGATIVE/ TRACE [facility] Comment on above: Performed By: #### U AMIC #### [facility] [address] [place] [address] Dr. Eugenia Osei Urobilinogen Qn (U) 0.2 {Amber'U}/dL Normal 0.2 - 1. 0 [facility] Comment on above: Performed By: #### U AMIC #### [facility] [address] [place], [place] [address] Dr. Eugenia Osei WBC NONE SEEN Normal NONE SEEN [facility] Comment on above: Performed By: #### U AMIC #### [facility] [address] [place], [place] [address] Dr. Eugenia Osei MG MAMM SCREEN 3D SHAKEEL CADon 04-27-2022 MG MAMM SCREEN 3D SHAKEEL CAD Patient: NIC CONROY Exam Date: 04/27/2022 : 1965 Gender:F Ordering : DR CRISTIAN ARELLANO . Admission #: [id number] Family : Order #: [id number] CLICK HERE TO VIEW EXAM RADIOLOGY REPORT [...] esophageal/liver cancer at age 62. LOCATION: [facility] BREAST COMPOSITION: Heterogeneously dense,which may obscure [...] M.D. on 04/27/2022 at 11:34 Normal [facility] OCC BLD IMMUNO SCREENon 05-0 OCCULT BLOOD Negative Normal NEGATIVE [facility] Comment on above: Performed By: #### O BSCRN #### [facility] [address] [place], [place] [address] Dr. Eugenia Osei CBC AUTO DIFFon 03-10-2022 BASO # 0.0 103/ul Normal 0.0-0.1 [facility] Comment on above: Performed By: #### C BC ####[facility] [address] [id number] Osei Basophils/100 WBC (Bld) 0.8 % Normal 0.2-2.0 [facility] Comment on above: Performed By: #### C BC ####[facility] [address] [address]DrKael Osei EO # 0.1 103/ul Normal 0.0-0.7 [facility] Comment on above: Performed By: #### C BC ####[facility] [address] [address]DrKael Osei Eosinophils/100 WBC (Bld) 1.6 % Normal 0.9-7.0 [facility] Comment on above: Performed By: #### C BC ####[facility] [address] [address]DrKael Osei Erythrocyte distribution width (RBC) [Ratio] 12.3 % Normal 11.0-15.0 [facility] Comment on above: Performed By: #### C BC ####[facility] [address] [address]DrKael Osei Hematocrit (Bld) [Volume fraction] 42.5 % Normal 36.0-48.0 [facility] Comment on above: Performed By: #### C BC ####[facility] [address] [id number] Osei Hemoglobin (Bld) [Mass/Vol] 14.2 g/dL Normal 12.0-16.0 [facility] Comment on above: Performed By: #### C BC ####[facility] [address] [id number] Osei IG # 0.01 10e3/ul Normal 0.00-0.03 [facility] Comment on above: Performed By: #### C BC ####[facility] [address] [address]Dr. Eugenia Osei IG % 0.3 % Normal 0.0-0.5 [facility] Comment on above: Performed By: #### C BC ####[facility] [address]thjamfx[address] [address]Dr. Eugenia Osei LYMPH # 1.4 103/ul Normal 1.2-3.8 [facility] Comment on above: Performed By: #### C BC ####[facility] [address]vhf[address]khjb[address] [address]Dr. Eugenia Osei Lymphocytes/100 WBC (Bld) 38.1 % Normal 20.5-60.0 [facility] Comment on above: Performed By: #### C BC ####[facility] I[address] [place], [place] [address]Dr. Eugenia Osei MANUAL DIFF REQ NO Normal [facility] Comment on above: Performed By: #### C BC ####[facility] [address]td[address] [place] [id number]. Eugenia Osei MCH (RBC) [Entitic mass] 30.2 pg Normal 26.7-34.0 [facility] Comment on above: Performed By: #### C BC ####[facility] [address] [place] [address]Dr. Eugenia Osei MCHC (RBC) [Mass/Vol] 33.4 g/dL Normal 29.9-35.2 [facility] Comment on above: Performed By: #### C BC ####[facility] [address] [place], [place] [address]DrKael Osei MCV (RBC) [Entitic vol] 90.4 fL Normal 81.0-99.0 [facility] Comment on above: Performed By: #### C BC ####[facility] [address] [place], [place] [address]DrKael Osei MONO # 0.3 103/ul Normal 0.3-0.8 [facility] Comment on above: Performed By: #### C BC ####[facility] [address] [place] [id number]. Eugenia Osei Monocytes/100 WBC (Bld) 7.1 % Normal 1.7-12.0 [facility] Comment on above: Performed By: #### C BC ####[facility] [address] [place] [id number]. Eugenia Osei NEUT # 1.9 103/ul Normal 1.4-6.5 [facility] Comment on above: Performed By: #### C BC ####[facility] [address] [place] [id number]. Eugenia Osei Neutrophils/100 WBC (Bld) 52.1 % Normal 43.0-75.0 [facility] Comment on above: Performed By: #### C BC ####[facility] [address] [place] [address]Dr. Eugenia Osei Platelet mean volume (Bld) [Entitic vol] 9.5 fL Normal 9.5-13.5 [facility] Comment on above: Performed By: #### C BC ####[facility] [address]uts[address] [place] [address]Dr. Eugenia Osei PLT 225 103/ul Normal 150-450 [facility] Comment on above: Performed By: #### C BC ####[facility] [address]od[address]wnx[address] [place] [address]Dr. Eugenia Osei RBC 4.70 106/ul Normal 4.20-5.40 [facility] Comment on above: Performed By: #### C BC ####[facility] [address]as[address] [place] [address] [address]Dr. Eugenia Osei WBC 3.7 103/ul Critically low 4.0-11.0 [facility] Comment on above: Performed By: #### C BC ####[facility] [address]azekjoy[address] [place] [id number]. Eugenia Osei FREE T3on 03-10-2022 FREE T3 2.29 pg/mlL Normal 2.18-3.98 [facility] Comment on above: Performed By: #### C MP, FT3, LIPID, T4, TSH ####[facility] [address] [address]Dr. Eugenia Osei GLYCOHEMOGLOBIN A1Con 2021 ADA RECOMMENDATION SEE BELOW Normal [facility] Comment on above: Result Comment: ADA RECOMMENDED LIMIT 4.0 - 6.0 ADA THERAPEUTIC TARGET < 7.0 ACTION SUGGESTED > 7.0 Performed By: #### A 1C #### [facility] [address] [address] [address] Eugenia Osei Glucose [Mass/Vol] 97 mg/dL Normal [facility] Comment on above: Performed By: #### A 1C #### [facility] [address] [address] [address] Eugenia Osei HbA1c (Bld) [Mass fraction] 5.0 % Normal 4.5-6.2 [facility] Comment on above: Performed By: #### A 1C #### [facility] [address] [address] [address] Eugenia Osei LIPID PROFILEon 03-10-2022 CHOL-HDL RATIO NORM SEE BELOW Normal [facility] Comment on above: Result Comment: 3.3 - 4.4 LOW RISK 4.4 - 7.1 AVERAGE RISK 7.1 - 11.0 MODERATE RISK >11.0 HIGH RISK Performed By: #### C MP, FT3, LIPID, T4, TSH ####[facility] [address] [place] [place] [address]DrKael Osei Cholesterol [Mass/Vol] 213 mg/dL Critically high <=200 [facility] Comment on above: Performed By: #### C MP, FT3, LIPID, T4, TSH ####[facility] [address] [place] [address]DrKael Osei Cholesterol in HDL [Mass/Vol] 42 mg/dL Normal 40-60 [facility] Comment on above: Performed By: #### C MP, FT3, LIPID, T4, TSH ####[facility] [address]awmi[address] [place] [address]DrKael Osei Cholesterol in LDL [Mass/Vol] 145.4 mg/dL Normal [facility] Comment on above: Performed By: #### C MP, FT3, LIPID, T4, TSH ####[facility] [address] [place] [place] [address]Dr. Eugenia Osei Cholesterol.total/Cho lesterol in HDL [Mass ratio] 5.1 {ratio} Normal [facility] Comment on above: Performed By: #### C MP, FT3, LIPID, T4, TSH ####[facility] [address]fr[address]vj[address] [place] [place] [address]Dr. Eugenia Osei HDL NORMAL > or = 60 mg/dl - LOW CARDIOVASCULAR RISK <40 mg/dl - HIGH CARDIOVASCULAR RISK Normal [facility] Comment on above: Performed By: #### C MP, FT3, LIPID, T4, TSH ####[facility] [address]sssp[address] [place] [place] [address]Dr. Eugenia Osei LDL CALC NORMAL SEE BELOW Normal [facility] Comment on above: Result Comment: <100 mg/dl OPTIMAL 100 - 129 mg/dl NEAR OR ABOVE OPTIMAL 130 - 159 mg/dl BORDERLINE HIGH 160 - 189 mg/dl HIGH >190 mg/dl VERY HIGH Performed By: #### C MP, FT3, LIPID, T4, TSH ####[facility] [address]iaq[address] [place] [address]Dr. Eugenia Osei Triglyceride [Mass/Vol] 128 mg/dL Normal <=150 [facility] Comment on above: Performed By: #### C MP, FT3, LIPID, T4, TSH ####[facility] Emaqmnsqsw[address] [place] [address]Dr. Eugenia Osei VLDL CALC 25.6 mg/dL Normal [facility] Comment on above: Performed By: #### C MP, FT3, LIPID, T4, TSH ####[facility] R[address]ym[address]qefg[address] [place] [address]Dr. Eugenia Osei PROF 14(COMP METB)on 022 Albumin [Mass/Vol] 4.3 g/dL Normal 3.4-5.0 [facility] Comment on above: Performed By: #### C MP, FT3, LIPID, T4, TSH ####[facility] [address]jc[address] [place] [address]Dr. Eugenia Osei Albumin/Globulin [Mass ratio] 1.1 {ratio} Normal [facility] Comment on above: Performed By: #### C MP, FT3, LIPID, T4, TSH ####[facility] [address] [place] [address]Dr. Eugenia Osei ALP [Catalytic activity/Vol] 98 U/L Normal 46-116 [facility] Comment on above: Performed By: #### C MP, FT3, LIPID, T4, TSH ####[facility] [address]mf[address]zzc[address] [place] [address]Dr. Cristabailey Osei ALT [Catalytic activity/Vol] 23 U/L Normal 14-59 [facility] Comment on above: Performed By: #### C MP, FT3, LIPID, T4, TSH ####[facility] Ol[address] [place], [place] [address]Dr. Eugenia Osei Anion gap [Moles/Vol] 12.9 mmol/L Normal [facility] Comment on above: Performed By: #### C MP, FT3, LIPID, T4, TSH ####[facility] F[address] [place], [place] [address]Dr. Cristabailey Osei AST [Catalytic activity/Vol] 16 U/L Normal 15-37 [facility] Comment on above: Performed By: #### C MP, FT3, LIPID, T4, TSH ####[facility] Ufu[address] [place], [place] [address]Dr. Eugenia Osei Bilirubin [Mass/Vol] 0.7 mg/dL Normal 0.2-1.0 [facility] Comment on above: Performed By: #### C MP, FT3, LIPID, T4, TSH ####[facility] [address]qs[address] [place], [place] [address]Dr. Eugenia Osei Calcium [Mass/Vol] 8.9 mg/dL Normal 8.5-10.1 [facility] Comment on above: Performed By: #### C MP, FT3, LIPID, T4, TSH ####[facility] W[address]ifmaj[address] [place] [address]Dr. Eugenia Osei Chloride [Moles/Vol] 103 mmol/L Normal 98-107 [facility] Comment on above: Performed By: #### C MP, FT3, LIPID, T4, TSH ####[facility] [address]oen[address] [place] [address]Dr. Eugenia Osei CO2 [Moles/Vol] 30.0 mmol/L Normal 21.0-32.0 [facility] Comment on above: Performed By: #### C MP, FT3, LIPID, T4, TSH ####[facility] S[address]jl[address] [place] [address]Dr. Eugenia Osei Creatinine [Mass/Vol] 0.81 mg/dL Normal 0.55-1.02 [facility] Comment on above: Performed By: #### C MP, FT3, LIPID, T4, TSH ####[facility] [address] [place], [place] [address]Dr. Eugenia Osei EGFR-AF SWEDISH >60 Normal >=60 [facility] Comment on above: Performed By: #### C MP, FT3, LIPID, T4, TSH ####[facility] Sw[address] [place], [place] [address]Dr. Eugenia Osei EGFR-NON AF SWEDISH >60 Normal >=60 [facility] Comment on above: Performed By: #### C MP, FT3, LIPID, T4, TSH ####[facility] X[address]asqd[address] [place] [address]Dr. Eugenia Osei Globulin (S) [Mass/Vol] 3.8 g/dL Normal [facility] Comment on above: Performed By: #### C MP, FT3, LIPID, T4, TSH ####[facility] [address] [place] [address]Dr. Eugenia Osei Glucose [Mass/Vol] 86 mg/dL Normal 74-106 [facility] Comment on above: Performed By: #### C MP, FT3, LIPID, T4, TSH ####[facility] [address]ugs[address] [place] [address]Dr. Eugenia Osei Potassium [Moles/Vol] 3.9 mmol/L Normal 3.5-5.1 [facility] Comment on above: Performed By: #### C MP, FT3, LIPID, T4, TSH ####[facility] Gemyrydhoq[address] [place] [address]Dr. Eugenia Osei Protein [Mass/Vol] 8.1 g/dL Normal 6.1-8.2 [facility] Comment on above: Performed By: #### C MP, FT3, LIPID, T4, TSH ####[facility] Yj[address] [place], [place] [address]Dr. Eugenia Osei Sodium [Moles/Vol] 142 mmol/L Normal 136-145 [facility] Comment on above: Performed By: #### C MP, FT3, LIPID, T4, TSH ####[facility] [address] [place], [place] [address]Dr. Eugenia Osei Urea nitrogen [Mass/Vol] 11.0 mg/dL Normal 7.0-18.0 [facility] Comment on above: Performed By: #### C MP, FT3, LIPID, T4, TSH ####[facility] [address] [place], [place] [address]Dr. Eugenia Osei Urea nitrogen/Creatinine [Mass ratio] 13.6 mg/mg Normal [facility] Comment on above: Performed By: #### C MP, FT3, LIPID, T4, TSH ####[facility] Z[address] [place], [place] [address]Dr. Eugenia Osei T4on 03-10-2022 T4 [Mass/Vol] 8.40 ug/dL Normal 4.80-13.90 [facility] Comment on above: Performed By: #### C MP, FT3, LIPID, T4, TSH ####[facility] [address] [place], [place] [address]Dr. Eugenia Osei TSHon 03-10-2022 TSH 1.448 uIU/mL Normal 0.470-4.680 [facility] Comment on above: Performed By: #### C MP, FT3, LIPID, T4, TSH ####[facility] T[address] [place], [place] [address]UyDr. Eugenia Osei TSH RANGE SEE BELOW Normal [facility] Comment on above: Result Comment: <0.3 4 UIU/ml HYPERTHYROID 0.34-5.60 UIU/ml EUTHYROID >5.60 UIU/ml HYPOTHYROID Performed By: #### C MP, FT3, LIPID, T4, TSH ####[facility] [address] [place], [place] [address]xDr. Eugenia Osei VITAMIN D 25 OHon 03-10-2022 VIT D 25-OH 63.4 ng/mL Normal [facility] Comment on above: Performed By: #### V ITAD #### [facility] [id number] Eugenia Osei VIT D RANGES SEE BELOW Normal [facility] Comment on above: Result Comment: <20 ng/mL Vit D deficient 20 - <30 ng/mL Vit D insufficient 30 - 100 ng/mL Vit D sufficient >100 ng/mL Potential Toxicity Performed By: #### V ITAD #### [facility] [address] [place], [place] [address] Dr. Eugenia Osei Cov[facility]-19 [facility]on SARS-CoV-2 (COVID-19) RNA KELLI+probe Ql (Unsp spec) Not detected Normal NOT DETECTED [facility] Comment on above: Result Comment: This test is not yet approved or cleared by the [place] FDA. When there are no FDA-approved or cleared tests available, and other criteria are met, FDA can make tests available under an emergency access mechanism called an Emergency Use Authorization (EUA). The EUA for this test is supported by the New Patient Escort of Health and Human Service's (HHS's) declaration [...] SARS-CoV-2. Performed By: #### C VDTB #### [facility] [address] [place] [address] Dr. Eugenia Osei INFLUENZA A AND B AGon 02-11 [facility] SEE BELOW Normal [facility] Comment on above: Result Comment: Nega tive for Flu A protein angiten. Infection due to Flu A cannot be ruled out. Flu A angiten in the sample may be below the detection limit of the test. Performed By: #### I NFLUAB #### [facility] [address] [place] [address] Dr. Eugenia Ose[facility] SEE BELOW Normal [facility] Comment on above: Result Comment: Nega tive for Flu B protein antigen. Infection due to Flu B cannot be ruled out. Flu B antigen in the sample may be below the detection limit of the test. Performed By: #### I NFLUAB #### [facility] [address] [place] [address] Dr. Eugenia Osei INFLUENZA A AG Negative Normal NEGATIVE SEE COMMENT [facility] Comment on above: Performed By: #### I NFLUAB #### [facility] [address] [place] [address] Dr. Eugenia Osei INFLUENZA B AG Negative Normal NEGATIVE SEE COMMENT [facility] Comment on above: Performed By: #### I NFLUAB #### [facility] [address] [place] [address] Dr. Eugenia Osei INTERNAL CONTROLS Within Normal Limits Normal Wi thin Normal Limits [facility] Comment on above: Performed By: #### I NFLUAB #### [facility] [address] [place] [address] Dr. Eugenia Osei No Panel Informationon 02-06 [facility] Vital Signs Date Time Vital Sign Value Performing Clinician Kathi roldan 09-25-2021 14:45-0500 Body height 160.02 cm Tolu Harris Other [facility] Other 09-25-2021 14:45-0500 Body mass index (BMI) [Ratio] 27.58 kg/m2 Tolu Harris Other [facility] Other 09-25-2021 14:45-0500 Body weight 70.63 kg Tolu Harris Other [facility] Other Encounters Encounter Date Encounter Type Care Provider Facility Start: 01-26-2024 End: 01-27-2024 ambulatory Radha J Amber Facility:[facility] Start: 01-26-2024 End: 01-26-2024 Lab Drop off Radha J Amber [facility] Start: 08-23-2023 End: 08-24-2023 ambulatory Radha J Amber Facility:[facility] Start: 08-23-2023 End: 08-23-2023 Patient encounter procedure Radha J Amber [facility] Start: 08-04-2023 End: 08-05-2023 ambulatory Radha J Amber Facility:[facility] Start: 07-21-2023 End: 07-21-2023 Telemedicine consultation with patient Mariama Noonan DO Work Phone: [facility] Start: 07-21-2023 End: 07-22-2023 ambulatory Mariama Noonan DO Work Phone: Neurology Comment on above: Migraine without aur a and without status migrainosus, not intractable (Primary Dx) Start: 07-21-2023 End: 07-21-2023 Lab Drop off Radha J Amber [facility] Start: 12-22-2022 End: 12-23-[address] [...] without abnormal findings DR BJ WILSON . [facility] Start: 03-12-2022 End: 03-12-[address] [...] 09-25-2021 End: 09-25-2021 ambulatory Tolu Harris Other [facility] Other Start: 09-25-2021 Office outpatient ne w [address] [facility] Start: 02-06-2021 End: 02-06-2021 Subsequent hospital visit by physician [facility] Viv Work Phone: Radiology Comment on above: Thunderclap headache [G44.53] Procedures Date Procedure Procedure Detail Performing Clinician Start: 02-06-2021 Ct angiography head w/contrast/noncontrast Mariama Noonan DO Work Phone: Start: 02-06-2021 Ct angiography neck w/contrast/noncontrast Mariama James DO Work Phone: Plan of Treatment Date Care Activity Detail Author Start: 07-09-2023 Influenza vaccination [facility] Start: 11-08-2022 [facility] Start: 07-09-2022 Influenza vaccination INFLUENZA (#1) [facility] Start: 01-16-2022 Covid-19 Vaccine (4 - Moderna series) Covid-19 Vaccine (4 - Moderna series) [facility] Start: 11-08-2021 [facility]PRESSION ASSESSMENT [facility] Start: 04-12-2021 COVID-19 VACCINE (3 - Booster for Moderna series) COVID-19 VACCINE (3 - Booster for Moderna series) [facility] Start: 04-12-2021 COVID-19 VACCINE (3 - Moderna series) COVID-19 VACCINE (3 - Moderna series) [facility] Start: 2017 SHINGRIX VACCINE (1 of 2) SHINGRIX V ACCINE (1 of 2) [facility] Start: 2012 COLOGUARD (FIT-DNA) COLOGUARD (FIT-D NA) [facility] Start: 2012 Colonoscopy COLONOSCOPY [facility] Start: 2012 COLORECTAL CANCER SCREENING COLORECTAL CANCER SCREENING [facility] Start: [address] COLONOGRAPHY [place] Start: 2012 DIABETES SCREEN DIABETES SCREEN [place] Start: 2012 Diabetes Screening Diabetes Screenin g [facility] Start: 2012 FECAL OCCULT BLOOD FECAL OCCULT BLOO D [facility] Start: 2012 Lipid 1996 panel - S mike or Plasma Lipid Screening [facility] Start: 2012 LIPID SCREEN LIPID SCREEN [facility] Start: 2012 SIGMOIDOSCOPY SIGMOIDOSCOPY [facility] Start: 2007 Mammography [facility] Start: 1997 HPV TESTING HPV TESTING [facility] Start: 1988 PAP TESTING PAP TESTING [facility] Start: 1986 Urine microalbumin profile [facility] Start: 1985 HEPATITIS C SCREENING HEPATITIS C SC REENING [facility] Start: 1985 HIV SCREENING HIV SCREENING [facility] Start: 1967 HEPATITIS B (1 of 3 - 3-dose series) HEPATITIS B (1 of 3 - 3-dose series) [facility] Start: 1967 Hepatitis B Vaccine (1 of 3 - 3-dose series) Hepatitis B Vaccine (1 of 3 - 3-dose series) [facility] Immunizations Immunization Date Immunization Notes Care Provider Fa [facility] 10-28-2021 influenza virus vacc ine, unspecified formulation Mariamaalisia Noonan DO Work Phone: [facility] Payers Date Payer Category Payer Unknown [id number] 1967 Unknown [id number] 2.16.84 [id number] 1967 Unknown [id number] 2.16.84 [id number] 1967 Unknown [id number] 2.16.84 [id number] 1967 Unknown [id number] 2.16.84 [id number] 1967 Unknown [id number] 2.16.84 0.1.260521.3.579.2.593 1967 Unknown [id number] 2.16.84 0.1.899765.3.579.2.593 1967 Unknown [id number] 2.16.84 0.1.279454.3.579.2.593 1967 Unknown [id number] 2.16.84 0.1.535249.3.579.2.593 1967 Unknown [id number] 2.16.84 0.1.926491.3.579.2.593 1967 Unknown [id number] 2.16.84 0.1.485003.3.579.2.593 1967 Unknown [id number] 2.16.84 0.1.760898.3.579.2.593 1967 Unknown [id number] 2.16.8 40.1.130171.3.579.2.727 1967 Unknown [id number] 2.16.8 40.1.188481.3.579.2.727 1967 Unknown [id number] 2.16.8 [id number] 1967 Unknown [id number] 2.16.8 [id number] 1959 Unknown [id number] 2. [id number] Social History Date Type Detail Facility Start: 01-07-2021 End: 07-21-2023 Sex Assigned At [facility] Start[facility]-07-[facility] Work Phone: Start: 01-07-2021 Tobacco use and exposure Smokeless tobacco non-user [facility] Work Phone: Start: 1965 Sex Assigned At Female [facility] Start: 01-07-2021 End: 07-21-2023 History of Social function [facility] Adult Depression Screening Assessment 0 [facility] Start: 01-23-2021 Gender identity Identifies as female gender (finding) [facility] Start: 01-23-2021 Sexual orientation Heterosexual (fin ding) [facility] Start: 12-08-2020 End: 01-07-2021 Exposure to SARS-CoV-2 (event) Not sure [facility] Tobacco smoking status No Smokin g Status Entered [facility] Clinical Notes 01-23-2021 to 01-26-2024 Mariama Noonan DO - 07/21/2023 4:03 PM EDTTelephone Encounter - Maryan Garcia - 10/12/2022 12:54 PM EST Note Date & Type Note Facility 01-26-2024 Evaluation + Plan note Diagnostic Tests PendingPAP [id number] 01/26/24 [facility] 07-21-2023 Note HNO ID: [id number] Author: Noonan, Mariama P, DO Service: ? [...] Motrin) Naproxen sodium (Aleve) Mariama Noonan DO [facility] [place] [facility] [address] [place] [address], [place] [address] Level of service: Est level 2 (10-19 min). Time spent 19 min on the day of service, which included preparing to see the patient, [id number] patient care, completing clinical documentation, obtaining and/or reviewing separately obtained history, and counseling and educating the patient/family/caregiver. Medical Decision Making: Medical Decision Making Level: 1 - N/A I have communicated my name and active licensure. The patient's identity and physical location were verified at the time of this visit. Either the patient or their legal special service representative has been informed of the risks and benefits of -- and alternatives to -- treatment through a remote evaluation and consents to proceed with the evaluation remotely. cc: Bj Wilson [address] [place] [address] Phone: [phone] (more content not included)... [facility] 07-21-2023 History of Presen t illness Narrative [...] Motrin) Naproxen sodium (Aleve) Mariama Noonan DO [facility] [place] [facility] [id number] [place] [address], [address] [address] Level of service: Est level 2 (10-19 min). Time spent 19 min on the day of service, which included preparing to see the patient, [id number] patient care, completing clinical documentation, obtaining and/or reviewing separately obtained history, and counseling and educating the patient/family/caregiver. Medical Decision Making: Medical Decision Making Level: 1 - N/A I have communicated my name and active licensure. The patient's identity and physical location were verified at the time of this visit. Either the patient or their legal special service representative has been informed of the risks and benefits of -- and alternatives to -- treatment through a remote evaluation and consents to proceed with the evaluation remotely. cc: Bj Wilson [address] [place] [address] documented in this encounter [facility] 10-12-2022 Miscellaneous Notes Patient last seen on 07/31/21. Overdue for follow up. documented in this encounter [facility] 05-22-2022 Note PROCEDURE: XR HIP RT 2 3V WO PELVIS COMPARISON: None. HISTORY: Pain in right hip joint FINDINGS: BONES:No fracture, acute abnormality, or significant arthropathy. SOFT TISSUES:Negative. No visible soft tissue swelling. EFFUSION:None visible. OTHER: Negative. IMPRESSION: No acute abnormality Electronically authenticated by: NORMA MATTSON Date: 2022-05-21 22:03 [facility] 09-25-2021 Evaluation note Encounter Date Diagnosis [...] on its own. Patient agreeable with plan [facility] Other 03-18-2021 History of Past illness Narrative* Problem Noted Date Diagnosed Date Resolved Date Primary cough headache 01/23/202107/21 Thunderclap headache 01/23/2021 023 New daily persistent headache 01/23/2021 07/21/2023 documented as of this encounter (statuses as of 07/22/2023) [facility] Plan note Future Appointments Appointment Date:08/04/2023 08:30:00 AM Scheduled Provider: Location:FT.MAMMOGRAM Appointment Type:MA Screen (FT) Appointment Date:08/04/2023 09:00:00 AM Scheduled Provider: Location:.BD Appointment Type:BD Bone Density () Diagnostic Tests Pending * PAP [id number] 07/21/23 Future Scheduled Tests Radiology* BD Bone Density DEXA 08/04/23 * MA Mamm Screen w/CAD if perf and 3D Shakeel [facility] Diagnosis Thunderclap headache Headache New daily persistent headache Primary cough headache Exertional headache Headache Dissection of carotid artery (HCC) Dissection of carotid artery documented in this encounter [facility] note* Diagnosis Migraine without aura and without status migrainosus, not intractable- Primary Migraine without aura, without mention of intractable migraine without mention of status migrainosus documented in this encounter [facility] general Narrative - Reported* Type Description Date Medical History brain tumor Surgical History brain tumor removal 2000 Hospitalization History See Above Hospitalization History colitis [facility] Other Hospital course Narrative No data available for this section [facility] instructions No data available for this section [facility] No data available for this section [facility] Diagnostic Procedure Only (Routine) - Closed Specialty Diagnoses / Procedures Referred By Deyanira t Referred To Contact CT IMAGING Diagnoses Dissection of carotid artery (HCC) Thunderclap headache Procedures CTA NECK W IVCON CTA NECK, W/WO C, W/3D CTA HEAD WWO C, W/3D Noonan, Mariama P, DO [address] [place] [address] Ct Imaging Referral ID Status Reason Start Date Expiration Date V isits Requested Visits Authorized [id number] Closed Auto-Generate d Referral 01/27/2021 07/26/2021 1 1 * Diagnostic Procedure Only (Routine) - Closed Specialty Diagnoses / Procedures Referred By Contac t Referred To Contact CT IMAGING Diagnoses Thunderclap headache New daily persistent headache Primary cough headache Exertional headache Procedures CTA HEAD WO/W IVCON CTA HEAD WWO C, W/3D Noonan, Mariama P, DO [address] [place] [address] Ct Imaging Referral ID Status Reason Start Date Expiration Date V isits Requested Visits Authorized [id number] Closed Auto-Generate d Referral 01/27/2021 07/26/2021 1 1 [facility] Diagnostic Procedure Only (Routine) - Closed Specialty Diagnoses / Procedures Referred By Contac t Referred To Contact CT IMAGING Diagnoses Dissection of carotid artery (HCC) Thunderclap headache Procedures CTA NECK W IVCON CTA NECK, W/WO C, W/3D CTA HEAD WWO C, W/3D Noonan, Mariama P, DO [address] [place] [address] Ct Imaging Referral ID Status Reason Start Date Expiration Date V isits Requested Visits Authorized [id number] Closed Auto-Generate d Referral 01/27/2021 07/26/2021 1 1 [facility] Summary Purpose Family History No Family History [...] or prosecute any alcohol or drug abuse patient.[facility] the event this information is protected by the Federal Confidentiality of Alcohol and Drug Abuse Patient Records regulations: The Federal rules restrict any use of the information to criminally investigate or prosecute any alcohol or drug abuse patient.[facility] the event this information is protected by the Federal Confidentiality of Alcohol and Drug Abuse Patient Records regulations: The Federal rules restrict any use of the information to criminally investigate or prosecute any alcohol or drug abuse patient.[facility] Care Teams (unrecognized sec tion and content) Sales 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 [employer] Relationship Specialty Start Date End Date Bj Wilson MD [address] [place] [address] PCP - General Family Medicine 01/01/21 Bj Wilosn MD [address] [place] [address] Referring Family Medicine 01/01/21 Sales 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 [employer] Relationship Specialty Start Date End Date Bj Wilson MD PCP - General Family Medicine 01/01/21 Bj Wilson MD Referring Family Medicine 01/01/21 Sales 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 [employer] Relationship Specialty Start Date End Date Bj Wilson MD PCP - General Family Medicine 01/01/21 Bj Wilson MD Referring Family [facility] 01/01/21 INFORMATION SOURCE (unrecogn ized section and content) DATE CREATED AUTHOR 12/27/2022 [facility] DATE CREATED AUTHOR AUTHOR'S ORGANIZ ATION 07/23/2023 [facility] DATE CREATED AUTHOR AUTHOR'S ORGANIZ ATION 02/02/2024 [facility] FOR RECORDS PERTAINING TO PATIENTS WHO [...] BE BASED ON THE PRIMARY CLINICAL RECORDS. [employer] [facility]. provides no warranty or guarantee of the accuracy or completeness of information in this document.
== END 2024-08-23 08:49 | disposition home or self-care (01) ==
LOC: CARD 08:48
PROVIDERS: PCP Family Medicine; Visit Provider Family Medicine
DX: R00.2 Palpitations (principal); I49.3 Ventricular premature depolarization
CPT/HCPCS: 93306

== ENCOUNTER 2024-09-05 06:09 | Outpatient (OUT) | payer OTHER, SELFPAY ==
--- OUTSIDE RECORDS SUMMARY | 2024-09-05 06:11 | XMS_ITS | CCD ---
Author Organization [facility] Care Team Providers Care Lead Business Systems Analyst Name Role Phone Tolu Harris Unavailable Bj Wilson MD Primary Care Provider [phone] Bj Wilson MD Unavailable CONG ., [...] Unavailabl Bj Duckworth MD Primary Care Provider [phone] Bj Wilson MD Unavailable NONE, XXXX Primary Care Physician Unavailab BJ Schwartz Primary Care Unavailable MARIAMA NOONAN Attending Unavailable Bj Wilson Primary Care Physician [phone] Amber, Radha J Attending Unavailable Amber, Radha [...] Morphine; Translations: [MORPHINE] Drug Allergy 01-07-2021 Itching [facility] Work Phone: (1 source) Morphine Drug Allergy 12-03-2020 [facility] Repository Medications Current Medications Medication Drug [...] 02-21-2022 Episodic Other aftercare (1 source) senior living (current) use of aspirin; Translations: [GROUP HOME CURRENT USE OF ASPIRIN] Onset: 02-24-2022 Episodic Other aftercare (1 source) Other fpc (current) drug therapy; Translations: [OTH GROUP HOME CURRENT DRUG THERAPY] Onset: 02-24-2022 Episodic Other [...] Name Value Interpretation Reference Range Facility PAP [id number] 02-01-2024 Cytology report Cyto stain Doc (Cvx/Vag) Note Invalid Interpretation Code [facility] Comment on above: Result Comment: [...] cases of atrophy. Performed by: Radha Mendenhall Brush Hand (ASC) . 01 Note: Note 01 The [...] <-Panic Low,>-Panic High,A-Abnormal,AA-Critical Abnormal Performed at: [address] [address] Suzan Bauer MD, Performed By: #### 3 [id number] #### [facility] Laboratory [address] [place] [address] HPV 16+18+31+33+35+39+45+ 51+52+56+58+59+66+68 DNA Probe+sig amp Ql (Cvx) Negative Invalid Interpretation Code Negative [facility] Comment on above: Result Comment: This nucleic acid amplification test detects fourteen high-risk HPV types (16,18,31,33,35,39,45,51,52,56,58,59,66,68) without differentiation. Performed at: [address] [id number] MD Juancarlos Mares Performed at: =G [address] [id number] MD Juancarlos Mares Performed By: #### 3 [id number] #### [facility] Laboratory [address] [place] [address] PAP [id number] 01-26-2024 Collection Technique BRUSH-SPATULA Normal F [facility] Comment on above: Performed By: #### 3 [id number] #### [facility] Laboratory [address] [place] [address] Gynecological Body Site ENDOCERVIX Normal [facility] Comment on above: Performed By: #### 3 [id number] #### [facility] Laboratory [address] [facility] [place] [address] Other Patient Information VIX-AHMAM-QUX Normal [facility] Comment on above: Performed By: #### 3 [id number] #### [facility] Laboratory [address] [place] [address] Previous Cytology Negative Normal [facility] Comment on above: Performed By: #### 3 [id number] #### [facility] Laboratory [address] [facility] [place] [address] Previous Treatment NONE Normal [facility] Comment on above: Performed By: #### 3 [id number] #### [facility] Laboratory [address] [facility] [place] [address] Physician Orderon 01-26-2024 Physician Order [id number] 7#1.00TIFF Normal [facility] CHEMISTRYOrdered By: SYSTEM SYSTEM on 08-23-2023 25-hydroxyvitamin D3 [Mass/Vol] 54.9 ng/mL Normal 30.0 - 100.0 ng/mL FT Remisol Comment on above: Interpretive Data: Vitamin D deficiency has been defined as a level of serum 25-OH vitamin D less than 20 ng/mL (1,2) by the [place] [employer] and an Endocrine Society practice guideline. The Endocrine Society further defined vitamin D insufficiency as a level between 21 and 29 ng/mL (2). 1. IOM ([place] [employer]). 2010. Dietary reference intakes for [...] 75 mL/min/1.73 m2 Normal >=59mL/min/1. 73 m2 [facility] S Comment on above: Interpretive Data: [...] 08-23-2023 Calcium [Mass/Vol] 9.6 mg/dL Normal 8.9-11.1 [facility] Comment on above: Performed By: #### 2 473326, 0899418, 0995527, 99163817, [id number], 1444874, 0915008 #### [facility] Laboratory [address] [place] [address] Consent for Treatmenton 08-08 Consent for Treatment [id number] #1.00TIFF Normal [facility] Creatinineon 08-23-2023 Creatinine [Mass/Vol] 0.9 mg/dL Normal 0.5-1.3 [facility] Comment on above: Performed By: #### 2 801214, 1313109, 7424191, 94796813, 017587233, 0386941, 4410229 #### [facility] Laboratory [address] [place] [address] Glu Fastingon 08-23-2023 Glucose [Mass/Vol] 92 mg/dL Normal 55-99 [facility] Comment on above: Performed By: #### 2 881822, 9706732, 9185210, 19461688, 642478342, 6973328, 3134194 #### [facility] Laboratory [address] [place] [address] Lipid Panelon 08-23-2023 Cholesterol [Mass/Vol] 257 mg/dL High 120-200 [facility] Comment on above: Performed By: #### 2 630508, 6432892, 6542796, 91585127, 774677020, 4736520, 2779322 #### [facility] Laboratory [address] [place] [address] Cholesterol in HDL [Mass/Vol] 43 mg/dL Invalid Interpretation Code [facility] Comment on above: Result Comment: HDL > or equal to 60 mg/dL: Low cardiovascular risk HDL < 40 mg/dL : High cardiovascular risk Performed By: #### 2 318061, 1591447, 2024163, 35306501, 533515084, 6764354, 0387360 #### [facility] Laboratory [address] [place] [address] Cholesterol in LDL [Mass/Vol] 175 mg/dL High <=129 [facility] Comment on above: Performed By: #### 2 649376, 0713152, 4314501, 33212270, 139589815, 0195734, 9879587 #### [facility] Laboratory [address] [place] [address] Cholesterol in VLDL [Mass/Vol] 45 mg/dL High 7-40 [facility] Comment on above: Performed By: #### 2 374239, 3037335, 5262013, 25355000, 815817541, 5262106, 1600832 #### [facility] Laboratory [address] [place] [address] Triglyceride [Mass/Vol] 224 mg/dL High <=149 [facility] Comment on above: Performed By: #### 2 244377, 2638570, 5227573, 50637112, 550739674, 3836303, 1853419 #### [facility] Laboratory [address] [place] [address] Physician Orderon 08-23-2023 Physician Order [id number] 7#1.00TIFF Normal [facility] TSHon 08-23-2023 TSH Qn 2.36 m[IU]/L Normal 0.34-5.60 [facility] Comment on above: Performed By: #### 2 226690, 8229263, 3236976, 62103193, 276307719, 0315752, 2820606 #### [facility] Laboratory [address] [place] [address] Vitamin D 25 Hydroxyon 08-23 25-hydroxyvitamin D3 [Mass/Vol] 54.9 ng/mL Normal 30.0-100.0 [facility] Comment on above: Result Comment: Vit min D deficiency has been defined as a level of serum 25-OH vitamin D less than 20 ng/mL (1,2) by the [place] [employer] and an Endocrine Society practice guideline. The Endocrine Society further defined vitamin D insufficiency as a level between 21 and 29 ng/mL (2). 1. IOM ([place] [employer]). 2010. Dietary reference intakes for calcium and D. [place]: The National Academies Press. 2. Jammie MF, Matthew [place], Geovanna STALEY, et al. Evaluation, treatment, and prevention of vitamin D deficiency: an Endocrine Society clinical practice guideline. JCEM. 2011 May; 96 (7):1911-30. Performed By: #### 2 305123, 7026799, 7813412, 59357066, 241041879, 7172060, 3189527 #### [facility] Laboratory [address] [place] [address] eGFRon 08-23-2023 GFR/1.73 sq M.predicted among non-blacks MDRD (S/P/Bld) [Vol rate/Area] 75 mL/min/1.73 m2 Normal >=59 [facility] Comment on above: Order Comment: Order added by Discern Expert. Result Comment: Net Front End Developer jeanna kidney disease could be indicated at eGFR's of less than 60 mL/min/1.73m2. Kidney failure is indicated at less than 15 mL/min/1.73m2. Performed By: #### 2 511203, 7247052, 7802778, 40599543, 859313331, 6107752, 5845858 #### [facility] Laboratory [address] [place] [address] MA Mamm Screen w/CAD if perf and [...] very important to your health. The current [place] [employer] and National Comprehensive Cancer [...] Cliff Zuleta M.D. Transcribed by: ERIK Technologist: [facility] Assessment: BI-RADS Category 2-Benign finding Recommendation: Normal interval follow-up Normal [facility] BD Bone Density DEXAon 08-04 [...] V. Transcribed by: ERIK Technologist: YONNY Normal [facility] Consent for Treatmenton 07-10 Consent for Treatment [id number] #1.00CD:127 Normal [facility] RAD - Mammography Reporton 0 08-03-2023 RAD - Mammography Report [id number]# 1.00CD:127 Normal [facility] PAP [id number] 07-26-2023 Cytology report Cyto stain Doc (Cvx/Vag) Note Invalid Interpretation Code [facility] Comment on above: Result Comment: TEST S RESULT FLAG UNITS REF RANGE LAB Clinician Provided Cytology Information Source.............Endocervix LMP / Prev Treat...ZMW=[id number] No. of containers..01 ThinPrep Vial DIAGNOSIS: 01 NEGATIVE FOR INTRAEPITHELIAL LESION OR MALIGNANCY. Specimen adequacy: 01 Satisfactory for evaluation. Endocervical and/or squamous metaplastic cells (endocervical component) are present. Performed by: 01 Liz Viera, Brush Hand (ASCP) . 01 Note: Note 01 The [...] High,A-Abnormal,AA-Critical Abnormal Performed at: [address] [address] Suzan Bauer MD, Performed By: #### 3 [id number] #### [facility] Laboratory [address] [place] [address] HPV 16+18+31+33+35+39+45+ 51+52+56+58+59+66+68 DNA Probe+sig amp Ql (Cvx) Negative Invalid Interpretation Code Negative [facility] Comment on above: Result Comment: This nucleic acid amplification test detects fourteen high-risk HPV types (16,18,31,33,35,39,45,51,52,56,58,59,66,68) without differentiation. Performed at: WB [address] [id number] MD Juancarlos Mares Performed at: =G [address] [id number] MD Juancarlos Mares Performed By: #### 3 [id number] #### [facility] Laboratory [address] [place] [address] [place] [address] PAP [id number] 07-21-2023 Collection Technique BRUSH-SPATULA [facility] Comment on above: Performed By: #### 3 [id number] #### [facility] Laboratory [address] [place] [address] Gynecological Body Site ENDOCERVIX Normal [facility] Comment on above: Performed By: #### 3 [id number] #### [facility] Laboratory [address] [place] [address] LMP or Menopause Date [id number] Invalid Interpretation Code [facility] Comment on above: Performed By: #### 3 [id number] #### [facility] Laboratory [address] [place] [address] Previous Cytology Negative Normal [facility] Comment on above: Performed By: #### 3 [id number] #### [facility] Laboratory [address] [place] [address] Previous Treatment NONE Normal [facility] Comment on above: Performed By: #### 3 [id number] #### [facility] Laboratory [address] [place] [address] Physician Orderon 07-21-2023 Physician Order [id number] #1.00CD:127 Normal [facility] Physician Order [id number]# 1.00CD:127 Normal [facility] PAP ACOG PANEL 2: 30 to 65on 12-01-2022 . . [facility] Comment on above: Result Comment: Perf ormed at: WB Performed By: #### 4 [id number] #### [facility] [address] [address] [address] Eugenia Osei Age Gdln ACOG Testing - [facility] Comment on above: Performed By: #### 4 [id number] #### [facility] [address] [address] [address] Eugenia Osei DIAGNOSIS: Comment [facility] Comment on above: Result Comment: NEGA TIVE FOR INTRAEPITHELIAL LESION OR MALIGNANCY. CELLULAR CHANGES ASSOCIATED WITH ATROPHY ARE PRESENT. Performed at: WB Performed By: #### 4 [id number] #### [facility] [address] [place] [address] Dr. Eugenia Osei HPV Aptima Positive Abnormal Negative [facility] Comment on above: Result Comment: This nucleic acid amplification test detects fourteen high-risk HPV types (16,18,31,33,35,39,45,51,52,56,58,59,66,68) without differentiation. Performed at: =G Performed By: #### 4 [id number] #### [facility] [address] [place] [address] Dr. Eugenia Osei HPV Genotype 16 Negative Normal Negative [facility] Comment on above: Performed By: #### 4 [id number] #### [facility] [address] [place] [address] Dr. Eugenia Osei HPV Genotype 18,45 Negative Normal Negative [facility] Comment on above: Performed By: #### 4 [id number] #### [facility] [address] [place] [address] Dr. Eugenia Osei HPV Genotype Reflex Comment Normal [facility] Comment on above: Result Comment: Obi cali, see HPV Genotype results. Performed at: WB Performed By: #### 4 [id number] #### [facility] [address] [place] [address] Dr. Eugenia Osei Methodology: Comment Normal [facility] Comment on above: Result Comment: This liquid based ThinPrep(R) pap test was screened with the use of an image guided system. Performed at: WB Performed By: #### 4 [id number] #### [facility] [address] [place] [address] Dr. Eugenia Osei Note: Comment Normal [facility] Comment on above: Result Comment: The Pap smear is a screening test designed to aid in the detection of premalignant and malignant conditions of the uterine cervix. It is not a diagnostic procedure and should not be used as the sole means of detecting cervical cancer. Both false-positive and false-negative reports do occur. . Performed at: WB Performed By: #### 4 [id number] #### [facility] [address] [address] [address] Eugenia Osei Performed by: Comment Normal [facility] Comment on above: Result Comment: Amol Baker Brush Hand (ASCP) Performed at: WB Performed By: #### 4 [id number] #### [facility] [address] [place], [place] [address] Dr. Eugenia Osei Specimen adequacy: Comment Normal [facility] Comment on above: Result Comment: Sati sfactory for evaluation. Endocervical component may not be distinguished in cases of atrophy. Performed at: WB Performed By: #### 4 [id number] #### [facility] [address] [address] [address] Eugenia Osei Covid-19 PCR ([facility])on 07-10 SARS-CoV-2 (COVID-19) RNA KELLI+probe Ql (Unsp spec) Detected Critically abnormal NOT DETECTED [facility] Comment on above: Result Comment: This test is not yet approved or cleared by the [place] FDA. When there are no FDA-approved or cleared tests available, and other criteria are met, FDA can make tests available under an emergency access mechanism called an Emergency Use Authorization (EUA). The EUA for this test is supported by the Straddle Bug Driver of Health and Human Service's (HHS's) declaration [...] Performed By: #### C VDTBH #### [facility] [id number] Eugenia Osei US PELVIS AND TRANSVAGon [...] by: JOHN HAJI Date: 2022-05-31 08:[address] [facility] [address] ABD/PELV WO W CONon 05-22 CT [...] MATTSON Date: 2022-05-22 15:52 Normal [facility] CULTURE URINEon 05-22-2022 CULTURE URINE Culture Observations: NO GROWTH. Normal [facility] Comment on above: Performed By: #### U RCX ####[facility] [address] [address]Dr. Eugenia Osei UA RANDOM W/MICROSCOPICon BACTERIA NONE SEEN Normal NONE SEEN [facility] Comment on above: Performed By: #### U AMIC #### [facility] [address] [address] [address] Eugenia Osei Bilirubin Ql (U) Negative Normal NEGATIVE [facility] Comment on above: Performed By: #### U AMIC #### [facility] [address] [place] [address] Dr. Eugenia Osei CAST NONE SEEN Normal NONE SEEN [facility] Comment on above: Performed By: #### U AMIC #### [facility] [address] [place] [address] Dr. Eugenia Osei Clarity (U) CLEAR Normal CLEAR [facility] Comment on above: Performed By: #### U AMIC #### [facility] [address] [place] [address] Dr. Eugenia Osei Color (U) LT. YELLOW Normal YELLOW [facility] Comment on above: Performed By: #### U AMIC #### [facility] [address] [place] [address] Dr. Eugenia Osei Crystals LM Nom (Urine sed) NONE SEEN Normal NONE SEEN [facility] Comment on above: Performed By: #### U AMIC #### [facility] [address] [place] [address] Dr. Eugenia Osei Epithelial cells LM Ql (Urine sed) RARE Normal NONE SEEN /RARE [facility] Comment on above: Performed By: #### U AMIC #### [facility] [address] [place] [address] Dr. Eugenia Osei Glucose Ql (U) Negative Normal NEGATIVE [facility] Comment on above: Performed By: #### U AMIC #### [facility] [address] [place] [address] Dr. Eugenia Osei Hemoglobin Ql (U) TRACE-INTACT Abnormal NEGATIVE [facility] Comment on above: Performed By: #### U AMIC #### [facility] [address] [place] [address] Dr. Eugenia Osei Ketones Ql (U) Negative Normal NEGATIVE [facility] Comment on above: Performed By: #### U AMIC #### [facility] [address] [place] [address] Dr. Eugenia Osei LEUKOCYTES Negative Normal NEGATIVE [facility] Comment on above: Performed By: #### U AMIC #### [facility] [address] [place] [address] Dr. Eugenia Osei MUCOUS NONE SEEN Normal NONE SEEN [facility] Comment on above: Performed By: #### U AMIC #### [facility] [address] [place] [address] Dr. Eugenia Osei Nitrite Ql (U) Negative Normal NEGATIVE [facility] Comment on above: Performed By: #### U AMIC #### [facility] [address] [place] [address] Dr. Eugenia Osei pH (U) 6.5 [pH] Normal 5-9 [facility] Comment on above: Performed By: #### U AMIC #### [facility] [address] [place] [address] Dr. Eugenia Osei RBC 0-2 Normal 0-2 [facility] Comment on above: Performed By: #### U AMIC #### [facility] [address] [place] [address] Dr. Eugenia Osei SPEC GRAVITY <=1.005 Abnormal 1.005-<=1.025 [facility] Comment on above: Performed By: #### U AMIC #### [facility] [address] [place] [address] Dr. Eugenia Osei UA PROTEIN Negative Normal NEGATIVE/ TRACE [facility] Comment on above: Performed By: #### U AMIC #### [facility] [address] [place] [address] Dr. Eugenia Osei Urobilinogen Qn (U) 0.2 {Amber'U}/dL Normal 0.2 - 1. 0 [facility] Comment on above: Performed By: #### U AMIC #### [facility] [address] [place], [place] [address] Dr. Eugenia Osei WBC NONE SEEN Normal NONE SEEN [facility] Comment on above: Performed By: #### U AMIC #### [facility] [address] [place], [place] [address] Dr. Eugenia Osei MG MAMM SCREEN 3D SHAKEEL CADon 04-27-2022 MG MAMM SCREEN 3D SHAKEEL CAD Patient: NIC CONROY Exam Date: 04/27/2022 : 1965 Gender:F Ordering : DR CRISTIAN ARELLANO . Admission #: [id number] Family : Order #: [id number] CLICK HERE TO VIEW EXAM RADIOLOGY REPORT [...] cancer at age 62. LOCATION: [facility] BREAST COMPOSITION: Heterogeneously dense,which may obscure [...] on 04/27/2022 at 11:34 Normal [facility] OCC BLD IMMUNO SCREENon 05-0 OCCULT BLOOD Negative Normal NEGATIVE [facility] Comment on above: Performed By: #### O BSCRN #### [facility] [address] [place], [place] [address] Dr. Eugenia Osei CBC AUTO DIFFon 03-10-2022 BASO # 0.0 103/ul Normal 0.0-0.1 [facility] Comment on above: Performed By: #### C BC ####[facility] [address] [id number] Osei Basophils/100 WBC (Bld) 0.8 % Normal 0.2-2.0 [facility] Comment on above: Performed By: #### C BC ####[facility] [address] [address]DrKael Osei EO # 0.1 103/ul Normal 0.0-0.7 [facility] Comment on above: Performed By: #### C BC ####[facility] [address] [address]DrKael Osei Eosinophils/100 WBC (Bld) 1.6 % Normal 0.9-7.0 [facility] Comment on above: Performed By: #### C BC ####[facility] [address] [address]DrKael Osei Erythrocyte distribution width (RBC) [Ratio] 12.3 % Normal 11.0-15.0 [facility] Comment on above: Performed By: #### C BC ####[facility] [address] [address]DrKael Osei Hematocrit (Bld) [Volume fraction] 42.5 % Normal 36.0-48.0 [facility] Comment on above: Performed By: #### C BC ####[facility] [address] [id number] Osei Hemoglobin (Bld) [Mass/Vol] 14.2 g/dL Normal 12.0-16.0 [facility] Comment on above: Performed By: #### C BC ####[facility] [address] [id number] Osei IG # 0.01 10e3/ul Normal 0.00-0.03 [facility] Comment on above: Performed By: #### C BC ####[facility] [address] [address]Dr. Eugenia Osei IG % 0.3 % Normal 0.0-0.5 [facility] Comment on above: Performed By: #### C BC ####[facility] [address] [address]Dr. Eugenia Osei LYMPH # 1.4 103/ul Normal 1.2-3.8 [facility] Comment on above: Performed By: #### C BC ####[facility] [address] [address]Dr. Eugenia Osei Lymphocytes/100 WBC (Bld) 38.1 % Normal 20.5-60.0 [facility] Comment on above: Performed By: #### C BC ####[facility] [address] [place], [place] [address]Dr. Eugenia Osei MANUAL DIFF REQ NO Normal [facility] Comment on above: Performed By: #### C BC ####[facility] [address] [id number]. Eugenia Osei MCH (RBC) [Entitic mass] 30.2 pg Normal 26.7-34.0 [facility] Comment on above: Performed By: #### C BC ####[facility] [facility] [address] [address]Dr. Eugenia Osei MCHC (RBC) [Mass/Vol] 33.4 g/dL Normal 29.9-35.2 [facility] Comment on above: Performed By: #### C BC ####[facility] [address] [place], [place] [id number] Osei MCV (RBC) [Entitic vol] 90.4 fL Normal 81.0-99.0 [facility] Comment on above: Performed By: #### C BC ####[facility] [address] [place], [place] [address]DrKael Osei MONO # 0.3 103/ul Normal 0.3-0.8 [facility] Comment on above: Performed By: #### C BC ####[facility] [address] [id number]. Eugenia Osei Monocytes/100 WBC (Bld) 7.1 % Normal 1.7-12.0 [facility] Comment on above: Performed By: #### C BC ####[facility] [address] [id number]. Eugenia Osei NEUT # 1.9 103/ul Normal 1.4-6.5 [facility] Comment on above: Performed By: #### C BC ####[facility] [address] [id number]. Eugenia Osei Neutrophils/100 WBC (Bld) 52.1 % Normal 43.0-75.0 [facility] Comment on above: Performed By: #### C BC ####[facility] [address] [id number]. Eugenia Osei Platelet mean volume (Bld) [Entitic vol] 9.5 fL Normal 9.5-13.5 [facility] Comment on above: Performed By: #### C BC ####[facility] [address] [id number]. Eugenia Osei PLT 225 103/ul Normal 150-450 [facility] Comment on above: Performed By: #### C BC ####[facility] [address] [id number]. Eugenia Osei RBC 4.70 106/ul Normal 4.20-5.40 [facility] Comment on above: Performed By: #### C BC ####[facility] [address] [id number]. Eugenia Osei WBC 3.7 103/ul Critically low 4.0-11.0 [facility] Comment on above: Performed By: #### C BC ####[facility] [address] [place] [id number]. Eugenia Osei FREE T3on 03-10-2022 FREE T3 2.29 pg/mlL Normal 2.18-3.98 [facility] Comment on above: Performed By: #### C MP, FT3, LIPID, T4, TSH ####[facility] [address] [address]Dr. Eugenia Osei GLYCOHEMOGLOBIN A1Con 2021 ADA RECOMMENDATION SEE BELOW Normal [facility] Comment on above: Result Comment: ADA RECOMMENDED LIMIT 4.0 - 6.0 ADA THERAPEUTIC TARGET < 7.0 ACTION SUGGESTED > 7.0 Performed By: #### A 1C #### [facility] [address] [address] [address] Eugenia Osei Glucose [Mass/Vol] 97 mg/dL Normal [facility] Comment on above: Performed By: #### A 1C #### [facility] [address] [address] [address] Eugenia Osei HbA1c (Bld) [Mass fraction] 5.0 % Normal 4.5-6.2 [facility] Comment on above: Performed By: #### A 1C #### [facility] [address] [address] [address] Eugenia Osei LIPID PROFILEon 03-10-2022 CHOL-HDL RATIO NORM SEE BELOW Normal [facility] Comment on above: Result Comment: 3.3 - 4.4 LOW RISK 4.4 - 7.1 AVERAGE RISK 7.1 - 11.0 MODERATE RISK >11.0 HIGH RISK Performed By: #### C MP, FT3, LIPID, T4, TSH ####[facility] [address] [address]DrKael Osei Cholesterol [Mass/Vol] 213 mg/dL Critically high <=200 [facility] Comment on above: Performed By: #### C MP, FT3, LIPID, T4, TSH ####[facility] [address] [place] [address]DrKael Osei Cholesterol in HDL [Mass/Vol] 42 mg/dL Normal 40-60 [facility] Comment on above: Performed By: #### C MP, FT3, LIPID, T4, TSH ####[facility] [address] [place] [address]DrKael Osei Cholesterol in LDL [Mass/Vol] 145.4 mg/dL Normal [facility] Comment on above: Performed By: #### C MP, FT3, LIPID, T4, TSH ####[facility] [address] [address]Dr. Eugenia Osei Cholesterol.total/Cho lesterol in HDL [Mass ratio] 5.1 {ratio} Normal [facility] Comment on above: Performed By: #### C MP, FT3, LIPID, T4, TSH ####[facility] [address] [address]Dr. Eugenia Osei HDL NORMAL > or = 60 mg/dl - LOW CARDIOVASCULAR RISK <40 mg/dl - HIGH CARDIOVASCULAR RISK Normal [facility] Comment on above: Performed By: #### C MP, FT3, LIPID, T4, TSH ####[facility] [address] [address]Dr. Eugenia Osei LDL CALC NORMAL SEE BELOW Normal [facility] Comment on above: Result Comment: <100 mg/dl OPTIMAL 100 - 129 mg/dl NEAR OR ABOVE OPTIMAL 130 - 159 mg/dl BORDERLINE HIGH 160 - 189 mg/dl HIGH >190 mg/dl VERY HIGH Performed By: #### C MP, FT3, LIPID, T4, TSH ####[facility] [address] [place] [address]Dr. Eugenia Osei Triglyceride [Mass/Vol] 128 mg/dL Normal <=150 [facility] Comment on above: Performed By: #### C MP, FT3, LIPID, T4, TSH ####[facility] [address] [place] [address]Dr. Eugenia Osei VLDL CALC 25.6 mg/dL Normal [facility] Comment on above: Performed By: #### C MP, FT3, LIPID, T4, TSH ####[facility] [address] [place] [address]Dr. Eugenia Osei PROF 14(COMP METB)on 022 Albumin [Mass/Vol] 4.3 g/dL Normal 3.4-5.0 [facility] Comment on above: Performed By: #### C MP, FT3, LIPID, T4, TSH ####[facility] [address] [place] [address]Dr. Eugenia Osei Albumin/Globulin [Mass ratio] 1.1 {ratio} Normal [facility] Comment on above: Performed By: #### C MP, FT3, LIPID, T4, TSH ####[facility] [address] [place] [address]Dr. Eugenia Osei ALP [Catalytic activity/Vol] 98 U/L Normal 46-116 [facility] Comment on above: Performed By: #### C MP, FT3, LIPID, T4, TSH ####[facility] [address]kt[address] [place] [address]Dr. Cristabailey Osei ALT [Catalytic activity/Vol] 23 U/L Normal 14-59 [facility] Comment on above: Performed By: #### C MP, FT3, LIPID, T4, TSH ####[facility] [address] [place], [place] [address]Dr. Eugenia Osei Anion gap [Moles/Vol] 12.9 mmol/L Normal [facility] Comment on above: Performed By: #### C MP, FT3, LIPID, T4, TSH ####[facility] [address] [place], [place] [address]Dr. Cristabailey Osei AST [Catalytic activity/Vol] 16 U/L Normal 15-37 [facility] Comment on above: Performed By: #### C MP, FT3, LIPID, T4, TSH ####[facility] [address] [place], [place] [address]Dr. Eugenia Osei Bilirubin [Mass/Vol] 0.7 mg/dL Normal 0.2-1.0 [facility] Comment on above: Performed By: #### C MP, FT3, LIPID, T4, TSH ####[facility] [address] [place], [place] [address]Dr. Eugenia Osei Calcium [Mass/Vol] 8.9 mg/dL Normal 8.5-10.1 [facility] Comment on above: Performed By: #### C MP, FT3, LIPID, T4, TSH ####[facility] [address] [place] [address]Dr. Eugenia Osei Chloride [Moles/Vol] 103 mmol/L Normal 98-107 [facility] Comment on above: Performed By: #### C MP, FT3, LIPID, T4, TSH ####[facility] [address] [place] [address]Dr. Eugenia Osei CO2 [Moles/Vol] 30.0 mmol/L Normal 21.0-32.[address] [facility] Comment on above: Performed By: #### C MP, FT3, LIPID, T4, TSH ####[facility] [address] [place] [address]Dr. Eugenia Osei Creatinine [Mass/Vol] 0.81 mg/dL Normal 0.55-1.02 [facility] Comment on above: Performed By: #### C MP, FT3, LIPID, T4, TSH ####[facility] [address] [place], [place] [address]Dr. Eugenia Osei EGFR-AF [place] >60 Normal >=[address] [facility] Comment on above: Performed By: #### C MP, FT3, LIPID, T4, TSH ####[facility] [address] [place], [place] [address]Dr. Eugenia Osei EGFR-NON AF [place] >60 Normal >=60 [facility] Comment on above: Performed By: #### C MP, FT3, LIPID, T4, TSH ####[facility] [address] [place] [address]Dr. Eugenia Osei Globulin (S) [Mass/Vol] 3.8 g/dL Normal [facility] Comment on above: Performed By: #### C MP, FT3, LIPID, T4, TSH ####[facility] [address] [place] [address]Dr. Eugenia Osei Glucose [Mass/Vol] 86 mg/dL Normal 74-106 [facility] Comment on above: Performed By: #### C MP, FT3, LIPID, T4, TSH ####[facility] [address] [place] [address]Dr. Eugenia Osei Potassium [Moles/Vol] 3.9 mmol/L Normal 3.5-5.1 [facility] Comment on above: Performed By: #### C MP, FT3, LIPID, T4, TSH ####[facility] [address] [place] [address]Dr. Eugenia Osei Protein [Mass/Vol] 8.1 g/dL Normal 6.1-8.2 [facility] Comment on above: Performed By: #### C MP, FT3, LIPID, T4, TSH ####[facility] [address] [place], [place] [address]Dr. Eugenia Osei Sodium [Moles/Vol] 142 mmol/L Normal 136-145 [facility] Comment on above: Performed By: #### C MP, FT3, LIPID, T4, TSH ####[facility] [address] [place], [place] [address]Dr. Eugenia Osei Urea nitrogen [Mass/Vol] 11.0 mg/dL Normal 7.0-18.0 [facility] Comment on above: Performed By: #### C MP, FT3, LIPID, T4, TSH ####[facility] [address] [place], [place] [address]Dr. Eugenia Osei Urea nitrogen/Creatinine [Mass ratio] 13.6 mg/mg Normal [facility] Comment on above: Performed By: #### C MP, FT3, LIPID, T4, TSH ####[facility] [address] [place], [place] [address]Dr. Eugenia Osei T4on 03-10-2022 T4 [Mass/Vol] 8.40 ug/dL Normal 4.80-13.90 [facility] Comment on above: Performed By: #### C MP, FT3, LIPID, T4, TSH ####[facility] [address] [place], [place] [address]Dr. Eugenia Osei TSHon 03-10-2022 TSH 1.448 uIU/mL Normal 0.470-4.680 [facility] Comment on above: Performed By: #### C MP, FT3, LIPID, T4, TSH ####[facility] [address] [place], [place] [address]EjDr. Eugenia Osei TSH RANGE SEE BELOW Normal [facility] Comment on above: Result Comment: <0.3 4 UIU/ml HYPERTHYROID 0.34-5.60 UIU/ml EUTHYROID >5.60 UIU/ml HYPOTHYROID Performed By: #### C MP, FT3, LIPID, T4, TSH ####[facility] [address] [place], [place] [address]Dr. Eugenia Osei VITAMIN D 25 OHon 03-10-2022 VIT D 25-OH 63.4 ng/mL Normal [facility] Comment on above: Performed By: #### V ITAD #### [facility] [address] [id number] Eugenia Osei VIT D RANGES SEE BELOW Normal [facility] Comment on above: Result Comment: <20 ng/mL Vit D deficient 20 - <30 ng/mL Vit D insufficient 30 - 100 ng/mL Vit D sufficient >100 ng/mL Potential Toxicity Performed By: #### V ITAD #### [facility] [address] [place], [place] [address] Dr. Eugenia Osei [facility]19 [facility]on SARS-CoV-2 (COVID-19) RNA KELLI+probe Ql (Unsp spec) Not detected Normal NOT DETECTED [facility] Comment on above: Result Comment: This test is not yet approved or cleared by the [place] FDA. When there are no FDA-approved or cleared tests available, and other criteria are met, FDA can make tests available under an emergency access mechanism called an Emergency Use Authorization (EUA). The EUA for this test is supported by the [employer] Driver of Health and Human Service's (HHS's) declaration [...] Performed By: #### C VDTB #### [facility] [address] [place] [address] Dr. Eugenia Osei INFLUENZA A AND B AGon 02-11 [facility] SEE BELOW Normal [facility] Comment on above: Result Comment: Nega tive for Flu A protein angiten. Infection due to Flu A cannot be ruled out. Flu A angiten in the sample may be below the detection limit of the test. Performed By: #### I NFLUAB #### [facility] [address] [place] [address] Dr. Eugenia [facility] SEE BELOW Normal [facility] Comment on above: Result Comment: Nega tive for Flu B protein antigen. Infection due to Flu B cannot be ruled out. Flu B antigen in the sample may be below the detection limit of the test. Performed By: #### I NFLUAB #### [facility] [address] [place] [address] Dr. Eugenia Osei INFLUENZA A AG Negative Normal NEGATIVE SEE COMMENT [facility] Comment on above: Performed By: #### I NFLUAB #### [facility] [address] [place] [address] Dr. Eugenia Osei INFLUENZA B AG Negative Normal NEGATIVE SEE COMMENT [facility] Comment on above: Performed By: #### I NFLUAB #### [facility] [address] [place] [address] Dr. Eugenia Osei INTERNAL CONTROLS Within Normal Limits Normal Wi thin Normal Limits [facility] Comment on above: Performed By: #### I NFLUAB #### [facility] [address] [place] [address] Dr. Eugenia Osei No Panel Informationon 02-06 [facility] Vital Signs Date Time Vital Sign Value Performing Clinician Kathi roldan 09-25-2021 14:45-0500 Body height 160.02 cm Tolu Harris Other [employer] Other 09-25-2021 14:45-0500 Body mass index (BMI) [Ratio] 27.58 kg/m2 Tolu Harris Other [employer] Other 09-25-2021 14:45-0500 Body weight 70.63 kg Tolu Harris Other [employer] Other Encounters Encounter Date Encounter Type Care Provider Facility Start: 01-26-2024 End: 01-27-2024 ambulatory Radha J Amber [place] Start: 01-26-2024 End: 01-26-2024 Lab Drop off Radha J Amber [facility] Start: 08-23-2023 End: 08-24-2023 ambulatory Radha J Amber Facility[place] Start: 08-23-2023 End: 08-23-2023 Patient encounter procedure Radha J Amber [facility] Start: 08-04-2023 End: 08-05-2023 ambulatory Radha J Amber Facility:[facility] Start: 07-21-2023 End: 07-21-2023 Telemedicine consultation with patient Mariama Nonoan DO Work Phone: [facility] Start: 07-21-2023 End: 07-22-2023 ambulatory Mariama Noonan DO Work Phone: Neurology Comment on above: Migraine without aur a and without status migrainosus, not intractable (Primary Dx) Start: 07-21-2023 End: 07-21-2023 Lab Drop off Radha J Amber [facility] Start: 12-22-2022 End: 12-23-2022 ambulatory [...] without abnormal findings DR BJ WILSON . [facility] Start: 03-12-2022 End: 03-12-[address] BJ [...] 09-25-2021 End: 09-25-2021 ambulatory Tolu Harris Other [employer] Other Start: 09-25-2021 Office outpatient ne w 30 minutes Tolu Harris [facility] Start: 02-06-2021 End: 02-06-2021 Subsequent hospital [...] Detail Author Start: 07-09-2023 Influenza vaccination C [facility] Start: 11-08-2022 [facility] Start: 07-09-2022 Influenza vaccination INFLUENZA (#1) [facility] Start: 01-16-2022 Covid-19 Vaccine (4 - Moderna series) Covid-19 Vaccine (4 - Moderna series) [facility] Start: 11-08-2021 DEPRESSION ASSESSMENT [facility] Start: 04-12-2021 COVID-19 VACCINE (3 - Booster for Moderna series) COVID-19 VACCINE (3 - Booster for Moderna series) [facility] Start: 04-12-2021 COVID-19 VACCINE (3 - Moderna series) COVID-19 VACCINE (3 - Moderna series) [facility] Start: 2017 SHINGRIX VACCINE (1 of 2) SHINGRIX V ACCINE (1 of 2) [facility] Start: 2012 COLOGUARD (FIT-DNA) COLOGUARD (FIT-D NA) [facility] Start: 2012 Colonoscopy COLONOSCOPY [facility] Start: 2012 COLORECTAL CANCER SCREENING COLORECTAL CANCER SCREENING [facility] Start: [address] COLONOGRAPHY [facility] Start: 2012 DIABETES SCREEN DIABETES SCREEN [facility] Start: 2012 Diabetes Screening Diabetes Screenin g [facility] Start: 2012 FECAL OCCULT BLOOD FECAL OCCULT BLOO D [facility] Start: 2012 Lipid 1996 panel - S mike or Plasma Lipid Screening [facility] Start: 2012 LIPID SCREEN LIPID SCREEN [facility] Start: 2012 SIGMOIDOSCOPY SIGMOIDOSCOPY [facility] Start: 2007 Mammography [facility] Start: 1997 HPV TESTING HPV TESTING [facility] Start: 1988 PAP TESTING PAP TESTING [facility] Start: 1986 Urine microalbumin profile [facility] Start: 1985 HEPATITIS C SCREENING HEPATITIS C SC REENING [facility] Start: 1985 HIV SCREENING HIV SCREENING [facility] Start: 1967 HEPATITIS B (1 of 3 - 3-dose series) HEPATITIS B (1 of 3 - 3-dose series) [facility] Start: 1967 Hepatitis B Vaccine (1 of 3 - 3-dose series) Hepatitis B Vaccine (1 of 3 - 3-dose series) [facility] Immunizations Immunization Date Immunization Notes Care Provider Fa [facility] 10-28-2021 influenza virus vacc ine, unspecified formulation Mariamaalisia Noonan DO Work Phone: [facility] Payers Date Payer Category Payer Unknown [id number] 1967 Unknown [id number] 2.16.84 [id number] 1967 Unknown [id number] 2.16.84 [id number] 1967 Unknown [id number] 2.16.84 [id number] 1967 Unknown [id number] 2.16.84 0.1.185019.3.579.2.593 1967 Unknown [id number] 2.16.84 [id number] 1967 Unknown [id number] 2.16.84 0.1.563577.3.579.2.593 1967 Unknown [id number] 2.16.84 0.1.864222.3.579.2.593 1967 Unknown [id number] 2.16.84 0.1.086711.3.579.2.593 1967 Unknown [id number] 2.16.84 [id number] 1967 Unknown [id number] 2.16.84 0.1.670657.3.579.2.593 1967 Unknown [id number] 2.16.84 0.1.115604.3.579.2.593 1967 Unknown [id number] 2.16.8 40.1.008654.3.579.2.727 1967 Unknown [id number] 2.16.8 40.1.205223.3.579.2.727 1967 Unknown [id number] 2.16.8 40.1.812940.3.579.2.727 1967 Unknown [id number] 2.16.8 [id number] 1959 Unknown [id number] 2. [id number] Social History Date Type Detail Facility Start: 01-07-2021 End: 07-21-2023 Sex Assigned At [facility] Start: 01-07-2021 [facility] Work Phone: Start: 01-07-2021 Tobacco use and exposure Smokeless tobacco non-user [facility] Work Phone: Start: 1965 Sex Assigned At Female C [facility] Start: 01-07-2021 End: 07-21-2023 History of Social function [facility] Adult Depression Screening Assessment 0 [facility] Start: 01-23-2021 Gender identity Identifies as female gender (finding) [facility] Start: 01-23-2021 Sexual orientation Heterosexual (fin ding) [facility] Start: 12-08-2020 End: 01-07-2021 Exposure to SARS-CoV-2 (event) Not sure [facility] Tobacco smoking status No Smokin g Status Entered [facility] Clinical Notes 01-23-2021 to 01-26-2024 Mariama Noonan DO - 07/21/2023 4:03 PM EDTTelephone Encounter - Maryan Garcia - 10/12/2022 12:54 PM EST Note Date & Type Note Facility 01-26-2024 Evaluation + Plan note Diagnostic Tests PendingPAP [id number] 01/26/24 [facility] 07-21-2023 Note HNO ID: [id number] Author: Noonan, Mariama P, DO Service: ? [...] Motrin) Naproxen sodium (Aleve) Mariama Noonan DO [facility] [place] Department of [facility] [address] [place] [address], [place] [address] Level of service: Est level 2 (10-19 min). Time spent 19 min on the day of service, which included preparing to see the patient, [id number] patient care, completing clinical documentation, obtaining and/or reviewing separately obtained history, and counseling and educating the patient/family/caregiver. Medical Decision Making: Medical Decision Making Level: 1 - N/A I have communicated my name and active licensure. The patient's identity and physical location were verified at the time of this visit. 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 cc: Bj Wilson [address] [place] [address] Phone: [phone] (more content not included)... [facility] 07-21-2023 History of Presen t illness [...] Motrin) Naproxen sodium (Aleve) Mariama Noonan DO [facility] [place] Department of [facility] [id number] [place] [address], [address] [address] Level of service: Est level 2 (10-19 min). Time spent 19 min on the day of service, which included preparing to see the patient, [id number] patient care, completing clinical documentation, obtaining and/or reviewing separately obtained history, and counseling and educating the patient/family/caregiver. Medical Decision Making: Medical Decision Making Level: 1 - N/A I have communicated my name and active licensure. The patient's identity and physical location were verified at the time of this visit. 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 cc: Bj Wilson [address] [place] [address] documented in this encounter [facility] 10-12-2022 Miscellaneous Notes Patient last seen on 07/31/21. Overdue for follow up. documented in this encounter [facility] 05-22-2022 Note PROCEDURE: XR HIP RT 2 3V WO PELVIS COMPARISON: None. HISTORY: Pain in right hip joint FINDINGS: BONES:No fracture, acute abnormality, or significant arthropathy. SOFT TISSUES:Negative. No visible soft tissue swelling. EFFUSION:None visible. OTHER: Negative. IMPRESSION: No acute abnormality Electronically authenticated by: NORMA MATTSON Date: 2022-05-21 22:03 [facility] 09-25-2021 Evaluation note Encounter Date Diagnosis Assessment [...] on its own. Patient agreeable with plan [employer] Other 03-18-2021 History of Past illness Narrative* Problem Noted Date Diagnosed Date Resolved Date Primary cough headache 01/23/202107/21 Thunderclap headache 01/23/2021 023 New daily persistent headache 01/23/2021 07/21/2023 documented as of this encounter (statuses as of 07/22/2023) [facility] Future Appointments Appointment Date:08/04/2023 08:30:00 AM Scheduled Provider: Location:FT.MAMMOGRAM Appointment Type:[place] Screen (FT) Appointment Date:08/04/2023 09:00:00 AM Scheduled Provider: Location:.BD Appointment Type:BD Bone Density () Diagnostic Tests Pending * PAP [id number] 07/21/23 Future Scheduled Tests Radiology* BD Bone Density DEXA 08/04/23 * [place] Mamm Screen w/CAD if perf and 3D Shakeel 08/04/23 [facility] Diagnosis Thunderclap headache Headache New daily persistent headache Primary cough headache Exertional headache Headache Dissection of carotid artery (HCC) Dissection of carotid artery documented in this encounter [facility] note* Diagnosis Migraine without aura and without status migrainosus, not intractable- Primary Migraine without aura, without mention of intractable migraine without mention of status migrainosus documented in this encounter [facility] general Narrative - Reported* Type Description Date Medical History brain tumor Surgical History brain tumor removal 2000 Hospitalization History See Above Hospitalization History colitis [employer] Other Hospital course Narrative No data available for this section [facility] Dis[facility] instructions No data available for this section [facility] No data available for this section [facility] CenterReason for referral (narrative)* Diagnostic Procedure Only (Routine) - Closed Specialty Diagnoses / Procedures Referred By Deyanira t Referred To Contact CT IMAGING Diagnoses Dissection of carotid artery (HCC) Thunderclap headache Procedures CTA NECK W IVCON CTA NECK, W/WO C, W/3D CTA HEAD WWO C, W/3D Noonan, Mariama P, DO [address] [place] [address] Ct Imaging Referral ID Status Reason Start Date Expiration Date V isits Requested Visits Authorized [id number] Closed Auto-Generate d Referral 01/27/2021 07/26/2021 1 1 * Diagnostic Procedure Only (Routine) - Closed Specialty Diagnoses / Procedures Referred By Contac t Referred To Contact CT IMAGING Diagnoses Thunderclap headache New daily persistent headache Primary cough headache Exertional headache Procedures CTA HEAD WO/W IVCON CTA HEAD WWO C, W/3D Noonan, Mariama P, DO [address] [place] [address] Ct Imaging Referral ID Status Reason Start Date Expiration Date V isits Requested Visits Authorized [id number] Closed Auto-Generate d Referral 01/27/2021 07/26/2021 1 1 [facility] Diagnostic Procedure Only (Routine) - Closed Specialty Diagnoses / Procedures Referred By Contac t Referred To Contact CT IMAGING Diagnoses Dissection of carotid artery (HCC) Thunderclap headache Procedures CTA NECK W IVCON CTA NECK, W/WO C, W/3D CTA HEAD WWO C, W/3D Noonan, Mariama P, DO [address] [place] [address] Ct Imaging Referral ID Status Reason Start Date Expiration Date V isits Requested Visits Authorized [id number] Closed Auto-Generate d Referral 01/27/2021 07/26/2021 1 1 [facility] Summary Purpose Family History No Family [...] or prosecute any alcohol or drug abuse patient.[facility] HospitalIn the event this information is protected by the Federal Confidentiality of Alcohol and Drug Abuse Patient Records regulations: The Federal rules restrict any use of the information to criminally investigate or prosecute any alcohol or drug abuse patient.[facility] Hospital[facility] the event this information is protected by the Federal Confidentiality of Alcohol and Drug Abuse Patient Records regulations: The Federal rules restrict any use of the information to criminally investigate or prosecute any alcohol or drug abuse patient.[facility] Care Teams (unrecognized sec tion and content) Lead Business Systems Analyst Relationship Specialty Start Date End Date Bj Wilson MD [address] [place] [address] PCP - General Family Medicine 01/01/21 Bj Wilson MD [address] [place] [address] Referring Family Medicine 01/01/21 Lead Business Systems Analyst Relationship Specialty Start Date End Date Bj Wilson MD PCP - General Family Medicine 01/01/21 Bj Wilson MD Referring Family Medicine 01/01/21 Lead Business Systems Analyst Relationship Specialty Start Date End Date Bj Wilson MD PCP - General Family Medicine 01/01/21 Bj Wilson MD Referring Family [facility] 01/01/21 INFORMATION SOURCE (unrecogn ized section and content) DATE CREATED AUTHOR 12/27/2022 [facility] DATE CREATED AUTHOR AUTHOR'S ORGANIZ ATION 07/23/2023 [facility] DATE CREATED AUTHOR AUTHOR'S ORGANIZ ATION 02/02/2024 [facility] FOR RECORDS PERTAINING TO PATIENTS WHO [...] BE BASED ON THE PRIMARY CLINICAL RECORDS. [facility] [employer] [facility]. provides no warranty or guarantee of the accuracy or completeness of information in this document.
--- NOTE | 2024-09-05 06:15 | NM_ITS ---
Patient Name: NIC CONROY MR#: [id number] : 1965 Exam Date: 09/05/2024 Ordering Doctor: DR Alan Wilson . RADIOLOGY REPORT PROCEDURE: NM HARINDER PERF SPECT REST STR COMPARISON: None. INDICATIONS: CHEST PAIN, PALPITAIONS, MULTIFOCAL PVCs, FATIGUE TECHNIQUE: Exam Description: Stress/Rest one day protocol gated SPECT Rest Imagin.8 mCi Tc-99m Cardiolite IV on 09/05/2024 Stress Imaging 30.4 mCi Tc-99m Cardiolite IV on 09/05/2024 Exercise Protocol: Niko Heart Rate (bpm): Rest: 48 Max: 141 PMHR: 86 Blood Pressure: Rest: 138/88 Max: 162/84 Exercise Time: Minutes: 9 Seconds: 28 Stage Reached: Stage: 3 Mets 11.6 Symptoms: palpitations Rest and peak stress ECG findings were normal and the exercise portion of the study was normal per attending physician Dr. Best meier tomultiple polymorphic PVC's. For more details please see separate cardiac stress test report. FINDINGS: QUALITY OF STUDY: Excellent. PERFUSION DEFECT: None. LOCATION: N/A SIZE: N/A. SEVERITY: N/A. TYPE: N/A. WALL MOTION: Normal. LV SIZE: Normal. 61 mL. TID / TCD: None; 0.7 LVEF: Normal. Calculated EF 79%. SUMMARY: Myocardial perfusion imaging study is NORMAL. CONCLUSION: 1. Normal nuclear medicine myocardial perfusion scan. Dictated by: John Haji M.D. on 09/06/2024 at 09:30 Approved by: John Haji M.D. on 09/06/2024 at 09:31
--- NOTE | 2024-09-05 08:35 | PC.NURSE ---
Nursing Note Cardiac Stress Test Reviewed: Medication, allergies and patient history reviewed. Stress Test: [ x] Patient tolerated stress test well. [ ] Patient unable to tolerate walking on treadmill. Switched to Lexiscan stress test. [ x] No chest pain noted per patient [ ] Chest pain that resolved prior to leaving stress lab. [ ] No dyspnea noted. [x ] Dyspnea that resolved prior to leaving stress lab. [x ] Patient left stress lab asymptomatic and hemodynamically stable. [ ] Patient taken to the Emergency Room due to non-resolving symptoms following stress test. [x ] Patient achieved target heart rate. [ ] Patient unable to achieve target heart rate. [ ] Aminophylline administered as reversal agent to Lexiscan (Regadenoson). [ ] Nitro administered. Nursing Comments:Pt had treadmill stress test done. Pt tolerated well. Pt had some dyspnea with exertion that resolved within 3 minutes of rest. No chest pain or discomfort.
--- NOTE | 2024-09-05 14:17 | P.STRESS_ITS ---
Stress Test Stress Test Requesting physician: Alan Wilson Procedure: Exercise Cardiolite stress test General Information: Reason for Stress Test: Palpitations, abnormal EKG Cardiac History and Risk Factors: HTN Resting 12 - Lead Electrocardiogram: Rate & rhythm: Sinus bradycardia at a rate of 48. [place]: Normal T-waves: Flattened in I and inverted in aVL ST-segments: Normal orientation Mildly prolonged QTc: 462msec Stress Test: Protocol: Niko protocol was followed, with injection of Cardiolite once target heart rate was achieved. Exercise capacity: Excellent exercise capacity. Total exercise time of 9 minutes 29 seconds reached Niko stage 4 at 4.2MPH, 16% grade, & 11.6 METs. Blood pressure: Initial: 138/88, Maximum: 162/84 Rate & rhythm: Patient remained in sinus rhythm during the exercise and recovery portions of the study.? The maximum heart rate was 141, which was 86% of the maximum predicted heart rate. Multiple polymorphic PVCs were noted. ST-segments & T-waves: No significant changes when compared to the baseline EKG. Patient response/symptoms: Patient voiced when she felt a PVC. Interpretation: Normal exercise stress test without electrocardiographical evidence of ischemia. Multiple polymorphic PVCs that correlated with patient's palpitations. Cardiolite imaging interpretation will be reported separately. Clinical correlation required.?
== END 2024-09-05 06:10 | disposition home or self-care (01) ==
LOC: NM 06:09
PROVIDERS: PCP Family Medicine; Visit Provider Family Medicine
DX: R00.2 Palpitations (principal); I49.3 Ventricular premature depolarization
CPT/HCPCS: 78452; 93017; A9500

== ENCOUNTER 2025-01-26 10:34 | Outpatient (OUT) | payer OTHER, SELFPAY ==
[2025-01-26 10:59] LABS: Basophils Percent Auto 0.7 % (0.2-2.0); Eosinophils Percent Auto 0.7 % (0.9-7.0); Hematocrit 43.5 % (36.0-48.0); Hemoglobin 15.2 g/dL (12.0-16.0); Immature Granulocytes Abs Auto 0.01 10^3/uL (0.00-0.03); Immature Granulocytes Pct Auto 0.2 % (0.0-0.5); Lymphocytes Absolute Auto 1.5 10^3/uL (1.2-3.8); Lymphocytes Percent Auto 33.2 % (20.5-60.0); Mean Corpuscular HGB Conc 34.9 g/dL (29.9-35.2); Mean Corpuscular Hemoglobin 31.3 pg (26.7-34.0); Mean Corpuscular Volume 89.5 fL (81.0-99.0); Mean Platelet Volume 9.6 fL (9.5-13.5); Monocytes Absolute Auto 0.4 10^3/uL (0.3-0.8); Neutrophils Absolute Auto 2.6 10^3/uL (1.4-6.5); Neutrophils Percent Auto 57.2 % (43.0-75.0); Platelet Count 218 10^3/uL (150-450); Red Blood Count 4.86 10^6/uL (4.20-5.40); Red Cell Distribution Width 12.2 % (11.0-15.0); White Blood Count 4.6 10^3/uL (4.0-11.0)
[2025-01-26 11:55] LABS: Alanine Aminotransferase 21 U/L (14-59); Albumin Globulin Ratio 1.2; Albumin Level 4.1 g/dL (3.4-5.0); Alkaline Phosphatase 84 U/L (46-116); Anion Gap 14.2; Aspartate Amino Transferase 14 U/L (15-37); BUN Creatinine Ratio 13.2; Bilirubin Total 0.8 mg/dL (0.2-1.0); Calcium 9.4 mg/dL (8.5-10.1); Carbon Dioxide 25.6 mmol/L (21.0-32.0); Chloride 106 mmol/L (98-107); Estimated GFR (African America >60 (>=60 mL/min/1.73m^2); Estimated GFR (Non-African Ame >60 (>=60 mL/min/1.73m^2); Globulin 3.3 g/dL; Glucose 88 mg/dL (74-106); Magnesium 2.2 mg/dL (1.8-2.4); Potassium 3.8 mmol/L (3.5-5.1); Sodium 142 mmol/L (136-145); Total Protein 7.4 g/dL (6.4-8.2)
== END 2025-01-26 10:35 | disposition home or self-care (01) ==
LOC: LAB 10:35
PROVIDERS: PCP Family Medicine
DX: I10 Essential (primary) hypertension (principal)
CPT/HCPCS: 36415; 80053; 83735; 85025

== ENCOUNTER 2025-10-02 11:14 | Outpatient (OUT) | payer OTHER, SELFPAY ==
--- OUTSIDE RECORDS SUMMARY | 2025-10-02 11:21 | XMS_ITS | Clinical Summary ---
Author Organization [facility] Address [address] [place] [address] Care Team Providers Care Passenger Service Manager Name Role Phone Alan Wilson MD Primary Care Provider [phone] Allergies No known active allergies Medications MedicationSigDispense QuantityRefillsLast FilledStart DateEnd DateStatus CVS D3 125 MCG (5000 UT) capsule Take by mouth Daily.03/15/2023ctive PARoxetine CR (Paxil-CR) 12.5 MG 24 hr tablet Take 12.5 mg by mouth in the morning.06/10/2023ctive ASPIRIN 81 MG chewable tablet 1 (one) time each day at the same time.Active fluticasone (Flonase) 50 MCG/ACT nasal spray 1 (one) time each day at the same time.06/08/2023ctive Resolved Problems ProblemNoted DateDiagnosed DateResolved DateParesthesia of skin07/26/2023 07/26/2023rthritis of left wristtrophy of hzeqja7107/25/2023 07/25/2023asal cell carcinoma of face Immunizations ImmunizationAdministration DatesNext DcaIGJ4902/21/2022Influenza, Unspecified 09/06/2017Influenza, injectable, quadrivalent, preservative free10/28/2021, 09/10/2020Influenza, seasonal, kftvsnaglr64/01/2020Zoster, Cqrzkjbmjyb92/03/2022 ,10/28/2021 Family History Medical HistoryRelationNameCommentsCancerFatherLarry SpringCancerMotherMary SpringCancerPaternal GrandfatherDiabetesPaternal GrandmotherRelationNameStatus CommentsFatherLarry SpringMaternal GrandfatherDeceasedMaternal Grandmother DeceasedMotherMary SpringPaternal GrandfatherDeceasedPaternal Grandmother Social History Tobacco UseTypesPacks/DayYears UsedDateSmoking Tobacco: NeverSmokeless Tobacco: Never Tobacco Cessation:Counseling Given: Not Answered Alcohol UseStandard Drinks/WeekCommentsNever0 (1 standard drink = 0.6 oz pure alcohol)CommentsUnknownSex and Gender InformationValueDate RecordedSex Assigned at BirthNot on fileLegal KftUhmqpr59/15/2023 7:05 PM EDTGender Identity Not on fileSexual OrientationNot on file Last Filed Vital Signs Vital SignReadingTime TakenCommentsBlood Ldfuaozx867/8811/24/2022 12:00 PM EST Pulse--Temperature--Respiratory Rate--Oxygen Saturation--Inhaled Oxygen Concentration--Rkatzq12.4 kg (164 lb)07/26/2023 9:41 AM NMSBupjwi838 cm (5' 3 ) 07/26/2023 9:41 AM EDTBody Mass Index29.05007/26/2023 9:41 AM EDT Plan of Treatment Not on file Insurance Care Teams Team MemberRelationshipSpecialtyStart DateEnd Alan Wilson MD PCP - GeneralFamily Medicine07/20/23
--- OUTSIDE RECORDS SUMMARY | 2025-10-02 11:21 | XMS_ITS | Clinical Summary ---
Author Organization [facility] Address [address] [place] [address] Care Team Providers Care Arboriculture Instructor Name Role Phone Alan Wilson MD Primary Care Provider [phone] Alan Wilson MD Unavailable [phone] Allergies Active AllergyReactionsCriticalityNoted OrgmHgtvzujoXldzgwodBagkqtx10/02/2021 Medications MedicationSigDispense QuantityRefillsLast FilledStart DateEnd DateStatus PARoxetine ER (PAXIL CR) 12.5 mg 24 hr tablet Take 12.5 mg by mouth once daily.12/16/2020ctive tiZANidine (ZANAFLEX) 4 mg tablet Take 4 mg by mouth as needed.12/30/2020ctive aspirin, enteric coated (ASPIRIN, ENTERIC COATED) 81 mg EC tablet Take 81 mg by mouth once daily.Active Cholecalciferol, Vitamin D3, 125 mcg (5,000 unit) cap Take 5,000 Units by mouth once daily.11/13/2020ctive CALCIUM ORAL Take 1 tablet by mouth once daily.Active alendronate (FOSAMAX) 35 mg tablet Take 35 mg by mouth one time a week.07/17/2021ctive indomethacin (INDOCIN) 25 mg capsule Take 1-3 caps every 8 hours as needed for head pain. Take with food. Do not use with other NSAIDs or steroids. 30 capsule ctive Active Problems ProblemNoted DateDiagnosed DateMigraine without aura and without status migrainosus, not lyqheulhoby01/13/2023Occipital neuralgia of left side01/23/2021 Nummular /18/2021xertional pumpzlst76/18/2021issection of carotid msillu5401/23/2021New onset /18/2021Meningioma Resolved Problems ProblemNoted DateDiagnosed DateResolved DatePrimary cough rnnfxivx97/18/2021 07/21/2023Thunderclap wxnqkdgu17/New daily persistent headache / Social History Tobacco UseTypesPacks/DayYears UsedDateSmoking Tobacco: NeverSmokeless Tobacco: NeverPHQ-2AnswerDate RecordedPHQ-2 mmaoz622rea Deprivation IndexAnswer Date RecordedNational Score (1-100), lower number is lower kzyg311607/21/2023State Score (1-10), lower number is lower vxhw91707/21/2023ata from: https://www.neighborhoodatlas.medicine.[facility].edu/. Last address used for zbngirkdw[address] [place], [place] [address]/21/2023CommentsNoSex and Gender InformationValueDate RecordedSex Assigned at PuvjmWvuxci97/18/2021 8:39 AM EDT Legal NmlAvdjax60/02/2012 9:44 AM ESTGender WrbgkbrvJgatpa03/18/2021 8:39 AM EDT Sexual WujbgxtfjofOhywvpua51/18/2021 8:39 AM EDT Last Filed Vital Signs Vital SignReadingTime TakenCommentsBlood Pqcbqghx547/9409 12:02 PM EDT Jwdhu2422 12:02 PM HEUVvmqpecwptr09.8 ??C (98.2 ??F)01/07/2021 12:58 PM ESTRespiratory Hmqn800301/07/2021 12:58 PM ESTOxygen Agrrlltvso58%01/07/2021 12:58 PM ESTInhaled Oxygen Concentration--Ulkgbi80.2 kg (157 lb)07/31/2021 12:02 PM CVDGazyzz413.2 cm (5' 3.47 )01/07/2021 12:58 PM ESTBody Mass Index27.41 01/07/2021 12:58 PM EST Plan of Treatment Health MaintenanceDue DateLast DoneCommentsAnxiety Btlqgggpc13/04/1985Depression Jgakhplmy03/04/1985HIV Vhkwahylb15/04/1985Hepatitis C Dkakldwni35/04/1985 Hepatitis B Vaccine (1 of 3 - 19+ 3-dose series)1986Cervical Cancer Blerdxjov65/04/1988Mammogram Ueatcgmvh25/04/2007CT Gnmbtqolubxp41/04/2012 Cologuard (FIT-DNA)07/12/20123002Kltorqcinmg91/04/2012Colorectal Cancer Screening 2012Diabetes Abjmgqtue71/04/2012Fecal Occult Blood2012Lipid Fmveljgac39/04/6208Zutzbtrujrugf94/04/2012Pneumococcal Vaccine: 50+ (1 of 1 - PCV)2017Covid-19 Vaccine (4 - 2024- season)501/, 02/15/2021, 01/18/2021Influenza Vaccine (#1)5112/29/2020, 09/10/2020, 08/08/2020, Additional history existsDTaP,Tdap,Td Vaccine (2 - Tdap)02/22/2032 02/21/2022hingrix BvuixynGrcqojnlh46/03/2022, 10/28/2021 Insurance Care Teams Team MemberRelationshipSpecialtyStart DateEnd Alan Wilson MD PCP - GeneralFamily Medicine01/01/21 Alan Wilson MD ReferringFakyly [facility]01/01/21
--- OUTSIDE RECORDS SUMMARY | 2025-10-02 11:21 | XMS_ITS | Clinical Summary ---
Author Organization [facility] Address [address] [place] [address] Care Team Providers Care Market Sales Manager Name Role Phone Alan Wilson MD Primary Care Provider [phone] Allergies Active AllergyReactionsCriticalityNoted SbihNhujzimaKzodzaspDdauims91/02/2021 Medications MedicationSigDispense QuantityRefillsLast FilledStart DateEnd DateStatus alendronate (Fosamax) 70 mg tablet Take 70 mg by mouth 1 (one) time per week.4Active aspirin 81 mg chewable tablet Chew 81 mg in the morning.Active DosoKap 137.5-200 mcg tablet Take 1 tablet by mouth in the morning.4Active cholecalciferol (Vitamin D-3) 125 MCG (5000 UT) capsule Take by mouth in the morning.Active PARoxetine CR (Paxil-CR) 12.5 mg 24 hr tablet Take 12.5 mg by mouth in the morning.Active folic acid (Folvite) 800 mcg tablet Take by mouth in the morning.Active spironolactone (Aldactone) 50 mg tablet Take 50 mg by mouth in the morning.5Active Active Problems ProblemNoted DateDiagnosed JkrdBimplrdrfl62/12/5332Ipzisbahemxo62/12/2024 Migraine without aura and without status migrainosus, not ctdirlbahrz66/13/2023 Dissection of carotid yizdaz8101/23/2021xertional usxpxvtq87/18/2021New onset iaoriinu43/18/2021Nummular nzbuovtb90/18/2021Occipital neuralgia of left side 01/23/2021 Encounters DateTypeDepartmentCare FxgjXrvwhfuynqc11/28/2025 11:40 AM EDTAncillary Procedure [facility] [address] [place] [address] Awareness of igebxrlzzh89/28/2025Orders Only [facility] [address] [facility] [place] [address] Tori Whalen MD 07/05/2025Orders Only [facility] [address] [place] [address] Shane Camacho MD 07/04/2025 1:30 PM EDTAncillary Procedure [facility] [address] [place] [address] Awareness of heartbeatsfrom Last 3 Months Social History Tobacco UseTypesPacks/DayYears UsedDateSmoking Tobacco: NeverSmokeless Tobacco: Never Tobacco Cessation:Counseling Given: No Alcohol UseStandard Drinks/WeekCommentsNot Currently0 (1 standard drink = 0.6 oz pure alcohol)CommentsNoSex and Gender InformationValueDate RecordedSex Assigned at HlleyWfuztf50/09/2025 1:20 PM EDTLegal QsaAysemp99/04/2024 3:24 PM ESTGender RsdsmnxsTdzasu76/09/2025 1:20 PM EDTSexual OrientationHeterosexual or Txqsiqcg06/09/2025 1:20 PM EDT Last Filed Vital Signs Vital SignReadingTime TakenCommentsBlood Bmkfdscj985/9605/25/2025 10:55 AM EDT Gqyfs321805/25/2025 10:55 AM EDTTemperature--Respiratory Mzlw031411/02/2024 11:32 AM ESTOxygen Jeieagdaxh11%05/25/2025 10:55 AM EDTInhaled Oxygen Concentration-- Knejcv84.9 kg (154 lb)05/25/2025 10:55 AM OHUJzbbby071 cm (5' 3 )05/25/2025 10:55 AM EDTBody Mass Index27.28005/25/2025 10:55 AM EDT Plan of Treatment Health MaintenanceDue DateLast DoneCommentsCT Dntjssnyuoeo1967Colonoscopy 1967Colorectal Cancer Ftudkuyms1967FIT-DNA1967FIT1967 FOBT07/12/19671570Cvmslznoyghtw1967Depression Akwwmdpts33/04/1979Hepatitis B Vaccines (1 of 3 - 19+ 3-dose series)1986Pap Smear1988Adult Tetanus 1989Cervical Cancer Gqlkeddpv27/04/1997HPV/Xcgdmd2907/12/1997Mammogram 503COVID-19 Vaccine ( season)/, 02/15/2021, 01/18/2021Influenza Vaccine (#1)5112/29/2020, 09/10/2020, 08/08/2020, Additional history existsZoster AzfnhrckZoofczteb45/03/2022, 10/28/2021HIB VaccinesAged OutNo longer eligible based on patient's age to complete this topicHPV VaccinesAged OutNo longer eligible based on patient's age to complete this topicIPV VaccinesAged OutNo longer eligible based on patient's age to complete this topicMeningococcal B VaccineAged OutNo longer eligible based on patient's age to complete this topicMeningococcal VaccineAged OutNo longer eligible based on patient's age to complete this topicPneumococcal Vaccine: Pediatrics (0 to 5 Years) and At-Risk Patients (6 to 64 Years)Aged Out No longer eligible based on patient's age to complete this topicRotavirus VaccinesAged OutNo longer eligible based on patient's age to complete this topic Medical Devices ImplantedTypeAreaManufacturerDevice IdentifierShelf Expiration DateModel / Serial / LotMonitor,Cardiac,Lux,Dxii+[facility] - [id number] - [id number] Implanted:Qty: 1 on 11/02/2024 by Shane Camacho MD [facility] HospitalImplantable Loop RecorderLeft: ChestMaxiton Vsddcqfqmf43/14/2026 [id number] / [id number] / Procedures Procedure NamePriorityDate/TimeAssociated DiagnosisCommentsCARDIAC DEVICE CHECK CHECK - OOSPPWSafpyfe23/29/2025 10:22 AM EDT Awareness of heartbeats CARDIAC DEVICE CHECK - REMOTE - LOOP RECORDER (ILR)Xpbzsfc2109/04/2025 12:00 AM EDTCARDIAC DEVICE CHECK CHECK - YIJUQCHxsaupf67/02/2025 5:12 PM EDT Awareness of heartbeats CARDIAC DEVICE CHECK - REMOTE - LOOP RECORDER (ILR)Qbgdgdw2907/05/2025 12:00 AM EDTfrom Last 3 Months Results * CARDIAC DEVICE CHECK - REMOTE - LOOP RECORDER (ILR) (09/05/2025 10:22 AM EDT) Only the most recent of2 resultswithin the time period is included. Specimen (Source)Anatomical Location / LateralityCollection Method / Volume Collection TimeReceived Time Narrative Authorizing ProviderResult TypeResult StatusPaul Doug MDCV IMPLANTABLE CARDIAC DEVICE PROCEDURESFinal ResultPerforming OrganizationAddressCity/State/ZIP Code Phone Number CPACS * Cardiac device check - Remote loop recorder (ILR) (09/04/2025 12:00 AM EDT) Only the most recent of2 resultswithin the time period is included. Anatomical RegionLateralityModalityOtherSpecimen (Source)Anatomical Location / LateralityCollection Method / VolumeCollection TimeReceived Time09/04/2025 Narrative Authorizing ProviderResult TypeResult StatusSacarlos Karmen Whalen MDCV IMPLANTABLE CARDIAC DEVICE PROCEDURESFinal Result from Last 3 Months Insurance Care Teams Team MemberRelationshipSpecialtyStart DateEnd Alan Wilson MD [address] [facility] [place] [address] [facility] - Odlzmgv56/4/24
--- OUTSIDE RECORDS SUMMARY | 2025-10-02 11:21 | XMS_ITS | CCD ---
Author Organization [facility] Care Team Providers Care Web Site Project Manager Name Role Phone Tolu Harris Unavailable Bj Wilson MD Primary Care Provider [phone] Bj Wilson MD Unavailable STEVE ., DR LORENZO Primary Care Unavailable HOY [...] LORENZO Consulting Unavailable HOY ., DR LORENZO Admila Unavailable ZIEBER, DR JOHN Zamudio Consulting Unavailable HOY ., DR LORENZO Primary Care Unavailable HOY ., DR LORENZO Consulting Unavailable ROSY CHING Attending Unavailable ROSY CHING Admitting Unavailable VERDEN, DR NORMA García Consulting Unavailable ROSY CHING [...] HOY ., DR LORENZO Primary Care Unavailable VERDEN, DR NORMA García Consulting Unavailable HOY ., DR LORENZO Admitting Unavailable HOY ., DR LORENZO Attending Unavailable HOY ., DR LORENZO Admitting Unavailable HOY ., DR LORENZO Primary Care Unavailable HOY ., DR LORENZO Consulting Unavailable HOY ., DR LORENZO Primary Care Unavailable REINECK, DR JACIEL Ochoa Attending Unavailabl e REINECK, DR JACIEL Ochoa Admitting Unavailabl e REINECK, DR JACIEL Ochoa Consulting Unavailabl Bj Duckworth MD Primary Care Provider [phone] Bj Wilson MD Unavailable NONE, XXXX Primary Care Physician Unavailab BJ Schwartz Primary Care Unavailable MARIAMA NOONAN Attending Unavailable Bj Wilson Primary Care Physician Amber Radha J Referring Unavailable Amber, Radha J Attending Unavailable Amber, Radha J Admitting Unavailable Amber, Radha J Attending Unavailable Amber, Radha J Admitting Unavailable PRINCESS, ISACC Admitting Unavailable PRINCESS, ISACC Attending Unavailable PRINCESS, ISACC Referring Unavailable PRINCESS, ISACC Referring Unavailable CLAUDIABRIDGET Referring Unavailable PRINCESS, ISACC Referring Unavailable PRINCESS, ISACC Referring Unavailable PRINCESS, ISACC Attending Unavailable CALI, JOSE CARLOS Attending Unavailable CALI, JOSE CARLOS Attending Unavailable Amber, Radha J Admitting Unavailable Amber, Radha J Attending Unavailable Amber, Radha J Referring Unavailable Amber, Radha J Admitting Unavailable Amber, Radha J Attending Unavailable Amber, Radha J Referring Unavailable Allergies Allergy ClassificationReported Allergen(s)Allergy TypeDate of OnsetReaction(s) Facility (5 sources)Morphine; Translations: [MORPHINE]Drug Ooierzc45-25-4308Qngvgip [facility] Work Phone: (1 source)MorphineDrug Hvsgkqx01-95-6898Tlt [facility] Repository Medications Current Medications MedicationDrug Class(es)DatesSig (Normalized)Sig (Original)Vitamin D (1 source)Vitamin D Active Completed/Discontinued Medications MedicationDrug Class(es)DatesSig (Normalized)Sig (Original)alendronic acid 35 mg oral tablet (2 sources)BisphosphonateStart: 29-09-6075kvqw 1 tablet by mouth every week alendronate (FOSAMAX) 35 mg tablet Take 35 mg by mouth one time a week. 0 07/17/2021 ActiveComment on above:Take 35 mg by mouth one time a week. amitriptyline hydrochloride 10 mg oral tablet (2 sources)Tricyclic AntidepressantStart: 07-31-2021 End: 54-67-6393qzvy 1 tablet by mouth once daily at bedtimeamitriptyline (ELAVIL) 10 mg tablet Take 1 tablet by mouth daily at bedtime. 30 tablet 11 07/31/2021 07/21/2023 DiscontinuedComment on above:Take 1 tablet by mouth daily at bedtime.aspirin 81 mg delayed release oral tablet (4 sources)Platelet Aggregation Inhibitor, Nonsteroidal Anti-inflammatory Drug take 1 tablet by mouth once dailyaspirin, enteric coated (ASPIRIN, ENTERIC COATED) 81 mg EC tablet Take 81 mg by mouth once daily. 0ActiveAspirin 81 Active Comment on above:Take 81 mg by mouth once daily.Calcium (3 sources)Phosphate Binder, Calciumtake 1 tablet by mouth once dailyCALCIUM ORAL Take 1 tablet by mouth once daily. 0 ActiveComment on above:Take 1 tablet by mouth once daily.cholecalciferol 0.125 mg oral capsule (3 sources)Vitamin DStart: 92-47-0545fihg 1 capsule by mouth once daily Cholecalciferol, Vitamin D3, 125 mcg (5,000 unit) cap Take 5,000 Units by mouth once daily. 0 11/13/2020 ActiveComment on above:Take 5,000 Units by mouth once daily.indomethacin 25 mg oral capsule (3 sources)Nonsteroidal Anti-inflammatory DrugStart: 12-25-0850zcqvydtplzkf (INDOCIN) 25 mg capsule Take 1-3 caps every 8 hours as needed for head pain. Take withfood. Do not use with other NSAIDs or steroids. 30 capsule 5 07/31/2021 Activetake 1 capsule by mouth every twelve hoursIndomethacin 25 MG 1 capsule with food or milk Orally Twice a day ActiveComment on above:Take 1-3 caps every 8 hours as needed for head pain. Take with food. Do not use with other NSAIDs or steroids.24 hr PARoxetine hydrochloride 12.5 mg extended release oral tablet (4 sources)Serotonin Reuptake InhibitorStart: 15-99-6935vnws 1 tablet by mouth once dailyPARoxetine ER (PAXIL CR) 12.5 mg 24 hr tablet Take 12.5 mg by mouth once daily. 0 12/16/2020 ActiveComment on above:Take 12.5 mg by mouth once daily.tiZANidine 4 mg oral tablet (3 sources)Central alpha-2 Adrenergic AgonistStart: 84-00-2483psIVFvtxgr (ZANAFLEX) 4 mg tablet Take 4 mg by mouth as needed. 0 12/30/2020 ActiveComment on above:Take 4 mg by mouth as needed. Problems Active Problems Problem ClassificationProblemDateDocumented DateEpisodic/ChronicAortic; peripheral; and visceral artery aneurysms (4 sources)Dissection of carotid artery; Translations: [Dissection of carotid artery]Onset: 270585-75-6460NpasmsvDpscstsec of lipid metabolism (1 source)Hyperlipidemia, unspecified; Translations: [HYPERLIPIDEMIA UNSPECIFIED]Onset: 18-41-1570TkhxnldFuzdoomus hypertension (3 sources)Essential (primary) hypertension; Translations: [ESSENTIAL PRIMARY HYPERTENSION]Onset: 79-99-4258EqaqokgJtakhlhn; including migraine (5 sources)New daily persistent headache; Translations: [New daily persistent headache (NDPH)]Onset: 799791-24-6405NgxbsyqZinxvzqwnevzr and screening for infectious disease (2 sources)Encounter for screening for human papillomavirus (HPV); Translations: [Encounter for immunization]Onset: 01-54-5461ZicazqajDdum disorders (1 source)Major depressive disorder, single episode, unspecified; Translations: [CECILIA DEPRESS D/O SINGLE EPIS UNS]Onset: 80-92-2144TbjytswXkpgiqwxneo deficiencies (1 source)Vitamin D deficiency, unspecified; Translations: [VITAMIN D DEFICIENCY UNSPECIFIED]Onset: 10-99-6924ZtwkepvGdmda and unspecified benign neoplasm (3 sources)Neoplasm of meninges; Translations: [Benign neoplasm of meninges, unspecified]92-17-9328JlsobhsUaaev screening for suspected conditions (not mental disorders or infectious disease) (8 sources)Encounter for screening for malignant neoplasm of cervix; Translations: [Encounter for screening mammogram for malignant neoplasm of breast]Onset: 74-67-6003ZarxphywQsqcyrzftuqs (3 sources)CONTACT W/AND (SUSP) EXPOS COVID-19; Translations: [CONTACT W/AND (SUSP) EXPOS COVID-19]Onset: 18-95-4778Lylhr infection (1 source)COVID-19; Translations: [COVID-19]Onset: 07-31-2022 Past or Other Problems Problem ClassificationProblemDateDocumented DateEpisodic/ChronicAbdominal pain (8 sources)Pelvic and perineal pain; Translations: [Right lower quadrant pain] Onset: 47-15-7291ZpiuxntoKmlwxcy dysrhythmias (6 sources)Palpitations; Translations: [PALPITATIONS]Onset: 47-17-3864Jodamwjl Deficiency and other anemia (1 source)Anemia, unspecified; Translations: [ANEMIA UNSPECIFIED]Onset: 61-08-0001CuqcpuusA Codes: Cut/pierceb (1 source)Other foreign body or object entering through skin, initial encounter; Translations: [OTH FB/OBJ ENTERING THRU SKIN INIT]Onset: 82-55-8966ZigwwfikZcltg of unknown origin (1 source)Fever, unspecified; Translations: [FEVER UNSPECIFIED]Onset: 02-13-2022 EpisodicGenitourinary symptoms and ill-defined conditions (1 source)Personal history of urinary (tract) infections; Translations: [PERS HX URINARY TRACT INFECTIONS]Onset: 74-56-7776CkisqmxkSvfagijb; including migraine (16 sources)Headache disorder; Translations: [Other headache syndrome]Onset: 616763-50-8757AydetxxvGzbrbtc and fatigue (1 source)Other fatigue; Translations: [OTHER FATIGUE]Onset: 03-10-7628Fealjkuf Open wounds of extremities (4 sources)Puncture wound with foreign body of right middle finger without damage to nail, initial encounter; Translations: [PUNCT FB RT MID FNGR NO DMG NL INIT]Onset: 92-64-5437OhuganmuCcixe aftercare (1 source)long term care phlebotomist (current) use of aspirin; Translations: [FCI CURRENT USE OF ASPIRIN]Onset: 18-49-3962UpflzftbOvqsh aftercare (1 source)Other terminal block assembler (current) drug therapy; Translations: [OTH FCI CURRENT DRUG THERAPY]Onset: 59-36-2302TeixlpzdCkswa connective tissue disease (1 source)Ganglion, left wristOnset: 09-25-2021 Resolved: 58-04-2380PanpzafxSmnqm non-traumatic joint disorders (1 source)Pain in left wristOnset: 09-25-2021 Resolved: 67-76-1805McsxydubGgljk non-traumatic joint disorders (4 sources)Pain in right hip; Translations: [PAIN IN RIGHT HIP]Onset: 05-21-2022 EpisodicResidual codes; unclassified (1 source)Family history of malignant neoplasm of trachea, bronchus and lung; Translations: [FAM HX MALIG NEOPLSM TRACH BRON LNG]Onset: 70-77-1773Qohbbgnm Residual codes; unclassified (1 source)Family history of malignant neoplasm of other organs or systems; Translations: [FAM HX MALIG NEOPLASM OTH ORGN/SYS]Onset: 44-95-5285Xsgorliu Residual codes; unclassified (1 source)Pain, unspecified; Translations: [PAIN UNSPECIFIED]Onset: 02-13-2022 EpisodicSpondylosis; intervertebral disc disorders; other back problems (3 sources)Cervico-occipital neuralgia; Translations: [Occipital neuralgia] Onset: 650744-54-2805RhykxaukMjbgjusgmxdz (1 source)CONTACT W/AND (SUSP) EXPOS COVID-19; Translations: [CONTACT W/AND (SUSP) EXPOS COVID-19]Onset: 07-30-2022 Results Test NameValueInterpretationReference RangeFacilityBD Bone Density DEXAon 39-29-8081AW Bone Density DEXAExam Date/Time: 09/13/2025 08:50 EST Reason for Exam: M81.0 Report IMPRESSION: OSTEOPENIA. The 10 year probability (FRAX) of a major osteoporotic fracture based on the femoral neck bone marrow density was not calculated since patient is on treatment for osteopenia The NOF/ISD guideline recommend FRAX for postmenopausal patients (not on treatment) if the lowest T-score for Spine(L1-L4), Femur Neck or Femur Total indicates low bone density (T score -1.0 to -2.5, osteopenia). EXAM: BD Bone Density DEXA CLINICAL HISTORY: M81.0. COMPARISON: 08/04/2023. COMMENTS: The lumbar spine and both hips were scanned. The mean bone mineral density from L1 to L4 is 0.925 g/cm2 and this value is -2.1 standard of deviation below the standard reference value for a young adult. Bone mineral density of the left femoral neck is 0.891 g/cm2 and this value is -1.1 standard of deviation below the standard reference value. Bone mineral density of the right femoral neck is 0.937 g/cm2 and this value is -0.7 standard of deviation below the standard reference value. The lowest value(s) meet WHO criteria for osteopenia. Compared to prior study, 1.8% increase in BMD of the lumbar spine, 3.3% decrease in BMD left femoral neck, and 0.1% decrease in BMD of the right femoral neck. RECOMMENDATIONS: 1. All patients should optimize her calcium and vitamin D intake. 2. Consider FDA-approved medical therapies in postmenopausal women and minimal age 50 years and older, based on the following: - hip or vertebral (clinical or morphometric) fracture. - T-score less than or equal to -2.5 at the femoral neck or spine after the appropriate evaluation to exclude secondary causes. - Low bone density (T score between -1.0 and -2.5 at the femoral neck or spine) and a 10 year probability of hip fracture greater than or equal to 3% or a 10-year probability of a major osteoporosis-related fracture greater than or equal to 20% based on FRAX calculation. - Clinician judgment and/or patient preferences may indicate treatment for people with 10 year fracture probability above or below these levels. - Further guidance on treatment can be found at the National Osteoporosis Foundation's website: bonesource.org 3. Patients with diagnosis of osteoporosis or high risk for fracture should have regular bone mineral density tests. For patients eligible for Medicare, routine testing is allowed once every 2 years. Testing frequency can be increased to 1 year Report for patient's history of rapidly progressing disease, those who are receiving or discontinuing medical therapy to restore bone mass or have additional risk factors. Ordering Provider: Radha Clark FINAL REPORT Dictated: 09/16/2025 12:28 pm Catarino Blank MD Signed (Electronic Signature): 09/16/2025 12:28 pm Signed by: Catarino Blank MD Transcribed by: ERIK Technologist: AbrahamAtrium Health Carolinas Medical Centerbrandt [facility] CenterMA Mamm Screen w/CAD if perf and 3D Bilon 29-29-1325AA Mamm Screen w/CAD if perf and 3D BilExam Date/Time: 09/13/2025 10:49 EST Reason for Exam: SCREENING Report IMPRESSION: BIRADS 2 BENIGN FINDINGS, NORMAL INTERVAL FOLLOW-UP. CLINICAL HISTORY: Screening. COMPARISON: Priors from 2023, 2022, 2021. RESULT: 3D tomosynthesis of bilateral breasts was performed. Category C - The breasts are heterogenously dense, which may obscure small masses. There is no suspicious mass, asymmetry, architectural distortion, or calcification. Stable asymmetries. Loop recorder left chest wall. Vascular calcifications: Absent. CAD analysis was performed and used in the interpretation. Dense Breast: Yes Follow-up: 12 MONTH RECALL. Board Certified Radiologists. Accredited by the ACR and FDA. MAMMOGRAPHY IS VERY IMPORTANT TO YOUR HEALTH. THE [employer] GUIDELINES RECOMMEND THAT WOMEN 40 YEARS OF AGE AND OLDER SHOULD HAVE A MAMMOGRAM EVERY YEAR. A REMINDER LETTER WILL BE SENT AT THE APPROPRIATE TIME. THIS FACILITY UTILIZES A REMINDER SYSTEM TO ENSURE ALL PATIENTS RECEIVE REMINDER NOTIFICATIONS AT THE APPROPRIATE TIME BASED ON THE RECOMMENDATIONS OF THIS EXAM. THIS INCLUDES REMINDERS FOR ROUTINE SCREENING MAMMOGRAMS, DIAGNOSTIC MAMMOGRAMS IN WHICH THE PATIENT IS ASKED TO RETURN FOR ADDITIONAL VIEWS, OR OTHER BREAST IMAGING INTERVENTIONS WHEN APPROPRIATE. THE PATIENT WILL BE PLACED IN THE APPROPRIATE REMINDER SYSTEM INCLUDING A REMINDER AT THE APPROPRIATE TIME FOR ANY PENDING ADDITIONAL VIEWS. Report Ordering Provider: Radha Clark FINAL REPORT Dictated: 09/16/2025 2:55 pm Catarino Blank MD Signed (Electronic Signature): 09/16/2025 2:55 pm Signed by: Catarino Blank MD Transcribed by: ERIK Technologist: JEFFERY Assessment: BI-RADS Category 2-Benign finding Recommendation: Normal interval [facility]Cl[facility] Calciumon 46-66-9409Tpmneuh [Mass/Vol]9.2 mg/dLNormal8.9-11.1Fisher [facility] CenterComment on above:Performed By: #### [id number] #### Tony [facility] [address], [place] [address]Gyrjcdvsxrxh 95-23-9424Mmdwjegadz [Mass/Vol]0.9 mg/dLNormal 0.5-1.3FMorrow County HospitalComment on above:Performed By: #### [id number] #### Jimenez [facility] [address], [place] [address]Pfl Fastingon 90-98-0869Rnztsjb [Mass/Vol]84 mg/qXBgvxsi27-58 [facility]ille HospitalComment on above:Performed By: #### [id number] #### [facility] [address], [place] [address]Yrxwk Panelon 09-61-5903Eikmnyereth [Mass/Vol]221 mg/dLHigh 120-200[facility] HospitalComment on above:Performed By: #### [id number] #### [facility] [address], [place] [address]Wyerbbsnztz in HDL [Mass/Vol]41 mg/dLInvalid Interpretation CodeBrecksville Va / Crille HospitalComment on above:Result Comment: '>= 60 LOW RISK' '<= 40 HIGH RISK'Performed By: #### [id number] #### [facility] [address], [place] [address]Dmtnmwpjxwm in LDL [Mass/Vol]154 mg/dLHigh<=129[facility] HospitalComment on above:Performed By: #### [id number] #### Jimenez [facility] [address], [place] [address]Jsinzmyknfp in VLDL [Mass/Vol]23 mg/dLNormal7-40[facility] HospitalComment on above:Performed By: #### [id number] #### [facility] [address], [place] [address]Wwrzpdgddhwn [Mass/Vol]116 mg/dLNormal<=149[facility] HospitalComment on above:Performed By: #### [id number] #### [facility] [address], [place] [address]FEIgl 82-40-5378SNN Qn2.22 m[IU]/LNormal0.34-5.60[facility] HospitalComment on above:Performed By: #### [id number] #### [facility] [address], [place] [address]Lazqpxt D 25 Hydroxyon 01-49-0872Gksnjue D 25 Czpxyov68.7 ng/mL Cvnaaf76.0-100.0[facility] Crille HospitalComment on above:Performed By: #### [id number] #### [facility] [address], [place] [address]oGVKri 98-37-4425uOXF60 mL/min/1.73 j7Csmlit>=59[facility] Crille HospitalComment on above:Performed By: #### [id number] #### [facility] [address], [place] [address]Rtvatc Onlyon 45-30-9304Crwqix [id number] Danielle Conroy 1965 F Date Provider Department Center 09/04/2025 ESTEFANIA CARRILLO HVC CARD MD [facility] No family history on fileNormalUniversSelect Medical Specialty Hospital - ColumbusOrders Onlyon 29-94-8409Qkwvyh [id number] Danielle Conroy 1965 F Date Provider Department Center 07/05/2025 ISACC HUSAIN HVC CARD MD [facility] No family history on fileNormalUniversSelect Medical Specialty Hospital - ColumbusOffice Visiton 84-92-0502Vudyov-up [id number] Danielle Conroy 1965 F Date Provider Department Center 05/25/2025 [id number]-CVAXORJOSE CARLOS FARRAR CARD [facility] No family history on file Level of Service:36930 [place] OFFICE/OUTPATIENT ESTABLISHED MOD MDM 30 [facility] 184068ul 65-77-7789Bctbyibm report Cyto stain Doc (Cvx/Vag)NoteInvalid Interpretation CodeBrecksville Va / Crille Hospital Comment on above:Result Comment: TESTS RESULT FLAG UNITS REF RANGE LAB Clinician Provided Cytology Information Source.............[employer] No. of containers..01 ThinPrep Vial DIAGNOSIS: 01 NEGATIVE FOR INTRAEPITHELIAL LESION OR MALIGNANCY. CELLULAR CHANGES ASSOCIATED WITH ATROPHY ARE PRESENT. Specimen adequacy: 01 Satisfactory for evaluation. Endocervical component may not be distinguished in cases of atrophy. Performed by: 01 [employer] Teacher[employer] ([facility]) . 01 Note: Note 01 The Pap [...] High <-Panic Low,>-Panic High,A-Abnormal,AA-Critical Abnormal Performed at: [facility] [address] Suzan Bauer MD, Anphmluaw By: #### [id number] #### Tony [facility] [address] [place] [address]KBW 16+18+31+33+35+39+45+51+52+56+58+59+66+68 DNA Probe+sig amp Ql (Cvx)NegativeInvalid Interpretation CodeNegativeBrecksville Va / Crille Hospital Comment on above:Result Comment: This nucleic acid amplification test detects fourteen high-risk HPV types (16,18,31,33,35,39,45,51,52,56,58,59,66,68) without differentiation. Performed at: [facility] [address], [place] [id number] MD Juancarlos Mares Performed at: =[facility] [address], [place] [id number] MD Juancarlos MaresPerformed By: #### [id number] #### [facility] [address], [place] [address]XFX [id number] 61-34-7875Ktsysueiin TechniqueBRUSH-SPATULANormal [facility] Crille HospitalComment on above:Performed By: #### [id number] #### [facility] [address], [place] [address]Avwbnlaurmyjo Body SiteENDOCERVIXNormalBrecksville Va / Crille HospitalComment on above:Performed By: #### [id number] #### [facility] [address], [place] [address]Rkjntr Visiton 54-84-2501Chsayb-up [id number] Danielle Conroy 1965 F Date Provider Department Center 01/26/2025 44557-TMOJTQJOSE CARLOS MADRIGAL [facility] No family history on file Level of Service:75101 [place] OFFICE/OUTPATIENT ESTABLISHED LOW MDM 20 [facility] HospitalHPon 52-86-8502BRMD Electrophysiology Consult Note [facility] Reason for visit: PVC HPI: Danielle Conroy is a 59 y.o. year old with past medical history of hypertension, obesity and intracranial meningioma recently presented to her PCP with complaints of fluttering sensation she was evaluated at that time and noted to have PVCs. In lieu of that she was advised to have an echocardiogram which was glvywztwr49-sdox-exy lady with a past history of hypertension, obesity and intracranial meningioma recently presented to her PCP with complaints of fluttering sensation she was evaluated at that time and noted to have PVCs. In lieu of that she was advised to have an echocardiogram which was performed which revealed normal EF and stress test that was negative. Holter revealed PVC burden of <1%. She was previously placed on beta-blockers she felt gave her some improvement but of late she has been having breakthrough episodes. She states that she noticed her heart rate suddenly increased from 7230 beats a minute. PMH: No past medical history on file. PSH: No past surgical history on file. SH: Social Determinants of Health Tobacco Use: Low Risk (09/19/2024) Patient History Smoking Tobacco Use: Never Smokeless Tobacco Use: Never Passive Exposure: Not on file Alcohol Use: Not on file Financial Resource Strain: Not on file Food Insecurity: Not on file Transportation Needs: Not on file Physical Activity: Not on file Stress: Not on file Social Connections: Not on file Intimate Partner Violence: Not on file Depression: Not at risk (07/20/2023) Received from [facility], [facility] PHQ-2 PHQ-2 score: 0 Housing Stability: Not on file Utilities: Not on file Health Literacy: Not on file Allergies: Allergies Allergen Reactions Morphine Itching Weight: 72.6kg Visit Vitals Smoking Status Never Meds: No current facility-administered medications on file prior to encounter. Current Outpatient Medications on File Prior to Encounter Medication Sig Dispense Refill alendronate (Fosamax) 70 mg tablet Take 70 mg by mouth 1 (one) time per week. aspirin 81 mg chewable tablet Chew 81 mg in the morning. cholecalciferol (Vitamin D-3) 125 MCG (5000 UT) capsule Take by mouth in the morning. DosoKap 137.5-200 mcg tablet Take 1 tablet by mouth in the morning. folic acid (Folvite) 800 mcg tablet Take by mouth in the morning. metoprolol tartrate (Lopressor) 25 mg tablet Take 25 mg by mouth two times daily. PARoxetine CR (Paxil-CR) 12.5 mg 24 hr tablet Take 12.5 mg by mouth in the morning. ROS: Cardio Basic Cardiovascular Symptoms: no lightheadedness, no leg edema, no syncope, no orthopnea, no PND, no claudication, Constitutional Constitutional: no fever, no night sweats, no significant weight gain, no significant weight loss, no exercise intolerance Eyes Eyes: no dry eyes, no irritation, no vision change ENMT Ears: no difficulty hearing, no ear pain Nose: no frequent nosebleeds, Mouth/Throat: no sore throat, no bleeding gums, no snoring, no dry mouth, no mouth ulcers, no oral abnormalities, no teeth problems Respiratory Respiratory: no cough, no wheezing, no coughing up blood, no sleep apnea Musculoskeletal Musculoskeletal: no muscle aches, no muscle weakness, joint pain+, no back pain, no swelling in the extremities Integumentary Skin no rash, no ulcer, no varicosities, no discoloration, no pruritus Neurologic Neurologic: no loss of consciousness, no weakness, no numbness, no seizures, no dizziness, no headaches Psychiatric Psych: no depression, feeling safe in relationship, no alcohol abuse, Hematologic/Lymphatic Hematologic/Lymphatic no swollen glands, no bruising Physical Exam: Constitutional General Appearance: well-nourished, well-developed, appears stated age Level of Distress: comfortable Psychiatric Mental Status: alert, normal affect Orientation: oriented to time, place, and person Insight: good judgement Eyes Lids and Conjunctivae: non-injected, no xanthelasma ENMT Ears: no lesions on external ear Nose: no lesions on external nose Oropharynx: no cyanosis, no pallor Neck Neck: supple, trachea midline Carotid Arteries: bilateral normal upstroke, no bruits Jugular Veins: normal jugular venous pressure Thyroid: not enlarged Lungs Respiratory Effort: unlabored Chest Exam: normal curvature, no thoracic deformity Auscultation: clear, no wheezing, no rales, no rhonchi Cardiovascular Rate And Rhythm: regular Heart Sounds: normal S1, normal s2, no gallop Systolic Murmur: not heard Diastolic Murmur: not heard Extremities: no cyanosis, no edema, no peripheral signs of emboli Peripheral Pulses Radial Pulse: normal Abdomen Inspection and Palpation: soft, non distended, no bruit, non tender Musculoskeletal Inspection: no joint swelling Neurologic Gait: normal gait Skin Inspection and P (more content not included)...NormalCincinnati Children's Hospital Medical CenterNURSNOTEon [id number] educated pt on d/c instructions. This included: site care, limited physical activity, resume normal diet, future appointments, and medications. RN educated pt on when to notify physician and when to go to the hospital. RN encouraged pt to voice any questions or concerns, and answered any questions or concerns if pt verbalized. Pt walked off of unit with all of belongings.NormalUnProvidence HospitalOffice Visiton [id number]-up [id number] Danielle Conroy Chay 1965 F Date Provider Department Center 09/19/2024 241-ISACC CAMACHO [facility] C[facility] No family history on file Level of Service:49271 [place] OFFICE/OUTPATIENT NEW MODERATE MDM 45 MINUTES Reason for Visit and Comments: New Patient [632] - PalpitationsNormalUniversity Nationwide Children's HospitalMA Mamm Screen w/CAD if perf and 3D Bilon [id number] Mamm Screen w/CAD if perf and 3D BilExam Date/Time: 09/12/2024 09:55 EST Reason for Exam: SCREENING Report IMPRESSION: BIRADS 2 BENIGN FINDINGS, NORMAL INTERVAL FOLLOW-UP Follow-up: 12 MONTH RECALL Density: Category C - Heterogeneously dense. Vascular calcifications: Absent. EXAM: MA Mamm Screen w/CAD if perf and 3D Shakeel DATE: 09/12/2024 9:40 AM CLINICAL HISTORY: SCREENING. COMPARISONS: 08/04/2023 and 04/27/2022. TECHNIQUE: Routine full-field digital mammograms and 3D breast tomosynthesis were obtained of both breasts. FINDINGS: There are no developing densities, suspicious microcalcifications, or areas of architectural distortion identified on the current study. No significant changes are identified from the prior studies, given differences in technique and positioning. Stable asymmetric densities. Dense Breast: Yes. CAD analysis was performed and used in the interpretation. Board Certified Radiologists. Accredited by the ACR and FDA. MAMMOGRAPHY IS VERY IMPORTANT TO YOUR HEALTH. THE CURRENT [place] [employer] OF [employer] AND NATIONAL COMPREHENSIVE CANCER NETWORK GUIDELINES RECOMMENDS ANNUAL MAMMOGRAPHY BEGINNING AT AGE 40. THIS FACILITY UTILIZES A REMINDER SYSTEM TO ENSURE ALL PATIENTS RECEIVE REMINDER NOTIFICATIONS AT THE APPROPRIATE TIME BASED ON THE RECOMMENDATIONS OF THIS EXAM. Report Ordering Provider: Radha Clark FINAL REPORT Dictated: 09/12/2024 1:30 pm Sid Patton MD Signed (Electronic Signature): 09/12/2024 1:30 pm Signed by: Sid Patton MD Transcribed by: ERIK Technologist: [facility] Assessment: BI-RADS Category 2-Benign finding Recommendation: Normal [facility] CHEMISTRYOrdered By: SYSTEM SYSTEM on [id number]-ymadglxkafkjpz D3 [Mass/Vol] 54.9 ng/qBBhqdle93.0 - 100.0 ng/mLHILLCREST MEDICAL [facility]ENTER – [place] RemisolComment on above:Interpretive Data: Vitamin D deficiency has been defined as a level of serum 25-OH vitamin D less than 20 ng/mL (1,2) by the [place] of Medicine and an Endocrine Society practice guideline. The Endocrine Society further defined vitamin D insufficiency as a level between 21 and 29 ng/mL (2). 1. IOM ([place] of Medicine). 2010. Dietary reference intakes for calcium and D. [place]: The National Academies Press. 2. Jammie MF, Matthew NC, Geovanna STALEY, et al. Evaluation, treatment, and prevention of vitamin D deficiency: an Endocrine Society clinical practice guideline. JCEM. 2010; 96 (7):1911-30.Calcium [Mass/Vol]9.6 mg/dLNormal8.9 - 11.1 mg/dLHILLCREST MEDICAL CENTER – [place] RemisolCholesterol [Mass/Vol]257 mg/uXYfkq236 - 200 mg/dLFT RemisolCholesterol in HDL [Mass/Vol]43 mg/dLInvalid Interpretation CodeFT RemisolComment on above:Interpretive Data: HDL > or equal to 60 mg/dL: Low cardiovascular risk HDL < 40 mg/dL : High cardiovascular riskCholesterol in LDL [Mass/Vol]175 mg/dL High<=129mg/dLHILLCREST MEDICAL [facility]ENTER – [place] RemisolCholesterol in VLDL [Mass/Vol]45 mg/dLHigh7 - 40 mg/dL [facility] RemisolCreatinine [Mass/Vol]0.9 mg/dLNormal0.5 - 1.3 mg/dLHILLCREST MEDICAL CENTER – [place] Remisol GFR/1.73 sq M.predicted among non-blacks MDRD (S/P/Bld) [Vol rate/Area]75 mL/min/1.73 k2Huymrm>=59mL/min/1.73 m2H[facility] Chem SComment on above:Interpretive Data: Chronic kidney disease could be indicated at eGFR's of less than 60 mL/min/1.73m2. Kidney failure is indicated at less than 15 mL/min/1.73m2.Glucose post fast [Mass/Vol]92 mg/mBTicvix05 - 99 mg/dLHILLCREST MEDICAL [facility] [place] RemisolTriglyceride [Mass/Vol]224 mg/dLHigh<=149mg/dLHILLCREST [facility] [place] RemisolTSH Qn2.36 m[IU]/LNormal0.34 - 5.60 mcIU/mLHILLCREST [facility] [place] RemisolPAP ACOG PANEL 2: 30 to 65on 12-01-2022..NormalThe [facility]oria Community HospitalComment on above:Result Comment: Performed at: WBPerformed By: #### [id number] #### [facility] [address] [place] [address] Dr. Eugenia Duran Gdln ACOG Ybrnrut70-21YozowrEhpPremier Health Miami Valley Hospital SouthComment on above:Performed By: #### [id number] #### [facility] [address] [place] [address] Dr. Eugenia OseiDIAGNOSIS:CommentBluffton HospitalComment on above: Result Comment: NEGATIVE FOR INTRAEPITHELIAL LESION OR MALIGNANCY. CELLULAR CHANGES ASSOCIATED WITH ATROPHY ARE PRESENT. Performed at: WBPerformed By: #### [id number] #### [facility] [address] [place] [address] Dr. Eugenia Vilchis AptimaPositiveAbnormalNegativePromedica Bay Park HospitalComhealthsource sag[place] on above:Result Comment: This nucleic acid amplification test detects fourteen high-risk HPV types (16,18,31,33,35,39,45,51,52,56,58,59,66,68) without differentiation. Performed at: =GPerformed By: #### [id number] #### [facility] [address] [place] [address] Dr. Eugenia Vilchis Genotype 16NegativeNormalNegativePromedica Bay Park HospitalComment on above:Performed By: #### [id number] #### [facility] [address] [place] [address] Dr. Yilan ChangHPV Genotype 18,45NegativeNormalNegativePromedica Bay Park Hospital Comment on above:Performed By: #### [id number] #### [facility] [address] [place] [address] Dr. Eugenia OseiHPV Genotype ReflexCommentNoMercy Health Anderson Hospital on above:Result Comment: Criteria met, see HPV Genotype results. Performed at: WBPerformed By: #### [id number] #### [facility] [address] [place] [address] Dr. Eugenia OseiMethodology:CommentSelect Medical Specialty Hospital - [facility] on above: Result Comment: This liquid based ThinPrep(R) pap test was screened with the use of an image guided system. Performed at: WBPerformed By: #### [id number] #### [place] [address] [address] Eugenia OseiNote:CommentSelect Medical Specialty Hospital - [place] on above:Result Comment: The Pap smear is a screening test designed to aid in the detection of premalignant and malignant conditions of the uterine cervix. It is not a diagnostic procedure and should not be used as the sole means of detecting cervical cancer. Both false-positive and false-negative reports do occur. . Performed at: WBPerformed By: #### [id number] #### [facility] [address] [place] [address] Dr. Eugenia OseiPerformed by:CommentSelect Medical Specialty Hospital - [place] on above: Result Comment: Niko Baker, Lost Charge Card Clerk (ASCP) Performed at: WBPerformed By: #### [id number] #### [facility] [address] [place] [address] Dr. Eugenia OseiSpecimececy adequacy:CommentSelect Medical Specialty Hospital - [place] on above:Result Comment: Satisfactory for evaluation. Endocervical component may not be distinguished in cases of atrophy. Performed at: WBPerformed By: #### [id number] #### [facility] [address] [place] [address] Dr. Eugenia OseiCovid-19 PCR (CVDTB)on 08-22-6015QHGX-CoV-2 (COVID-19) RNA KELLI+probe Ql (Unsp spec)DetectedCritically abnormalNOT DETECTEDThe [facility] Community HospitalComment on above:Result Comment: This test is not yet approved or cleared by the [place] FDA. When there are no FDA-approved or cleared tests available, and other criteria are met, FDA can make tests available under an emergency access mechanism called an Emergency Use Authorization (EUA). The EUA for this test is supported by the [place] of Health and Human Service's (HHS's) declaration [...] no longer be used). Performed By: #### CVDTBH #### [facility] [address] [place] [address] Dr. Eugenia OseiUS PELVIS AND TRANSVAGon 06-69-2525NY PELVIS AND TRANSVAG EXAMINATION: US PELVIS AND [...] Electronically authenticated by: JOHN HAJI Date: 2022-05-31 08:32NoPremier Health Miami Valley Hospital SouthCT ABD/PELV WO W CONon 04-20-3102PJ ABD/PELV WO W CON EXAMINATION: CT ABD/PELV [...] Electronically authenticated by: NORMA MATTSON Date: 2022-05-22 15:52NoPremier Health Miami Valley Hospital SouthCULTURE URINEon [id number] URINECulture Observations: NO GROWTH.NormalThe [facility] Community HospitalComment on above:Performed By: #### URCX ####[facility] [address] [place] [address]Dr. Eugenia Cervantes RANDOM W/MICROSCOPICon [id number] SEENNormalNONE SEEN The [facility] Community HospitalComment on above:Performed By: #### UAMIC #### [facility] [address] [place] [address] [address] Eugenia Ngo Ql (U)NegativeNormalNEGATIVEThe [facility] Comment on above:Performed By: #### UAMIC #### [facility] [address] [place] [address] [address] Eugenia Echeverria SEENNormalNONE SEENPromedica Bay Park HospitalComhealthsource [place] on above:Performed By: #### UAMIC #### [facility] [address] [place] [address] [address] Eugenia Griffiths (U)CLEARNormalCLEARPromedica Bay Park HospitalComment on above: Performed By: #### UAMIC #### [facility] [address] [place] [address] [address] Eugenia Fox (U)LT. YELLOWNormalYELLOWPromedica Bay Park HospitalComment on above:Performed By: #### UAMIC #### [facility] [address] [place] [address] [address] Eugenia OseiCrystals LM Nom (Urine sed)NONE SEENNormalNONE SEENPromedica Bay Park HospitalComhealthsource [place] on above:Performed By: #### UAMIC #### [facility] [address] [place] [address] Dr. Bello ChangEpithelial cells LM Ql (Urine sed)RARENormalNONE SEEN /RAREPromedica Bay Park HospitalComment on above:Performed By: #### UAMIC #### [facility] [address] [place] [address] [address] Eugenia OseiGlucose Ql (U)NegativeNormalNEGATIVEPromedica Bay Park HospitalComhealthsource [place] on above:Performed By: #### UAMIC #### [facility] [address] [place] [address] [address] Eugenia OseiHemoglobin Ql (U)TRACE-INTACTAbnormalNEGATIVEPromedica Bay Park HospitalComhealthsource [place] on above:Performed By: #### UAMIC #### [facility] [address] [place] [address] [address] Eugenia OseiKetones Ql (U)NegativeNormalNEGATIVEPromedica Bay Park HospitalComhealthsource [place] on above:Performed By: #### UAMIC #### [facility] [address] [place] [address] [address] Eugenia OseiLEUKOCYTESNegativeNormalNEGATIVEPromedica Bay Park HospitalComhealthsource [place] on above:Performed By: #### UAMIC #### [facility] [address] [place] [address] Dr. Eugenia MosleyCOUSYVONNE SEENNormalNONE SEENPromedica Bay Park HospitalComment on above:Performed By: #### UAMIC #### [facility] [address] [place] [address] Dr. Eugenia Thrasher Ql (U)NegativeNormalNEGATIVEThe [facility] Community HospitalComment on above:Performed By: #### UAMIC #### [facility] [address] [place] [address] Dr. Eugenia OseipH (U)6.5 [pH]Normal5-9The [facility] Community HospitalComment on above: Performed By: #### UAMIC #### [facility] [address] [place] [address] Dr. Eugenia OseiQoqewBJE9-0Bltdxi0-4Rdi [facility] HospitalComment on above:Performed By: #### UAMIC #### [facility] [address] [place] [address] Dr. Eugenia OseiSPEC GRAVITY<=1.122Fxupmdhg5.005-<=1.025The [facility] Comment on above:Performed By: #### UAMIC #### [facility] [address] [place] [address] Dr. Eugenia Cervantes PROTEINNegativeNormalNEGATIVE/ TRACEThe [facility] Comment on above:Performed By: #### UAMIC #### [facility] [address] [place] [address] Dr. Eugenia Quiñonesbilinogen Qn (U)0.2 {Amber'U}/dLNormal0.2 - 1.0The [facility] HospitalComment on above:Performed By: #### UAMIC #### [facility] [address] [place] [address] Dr. Eugenia OseiWBCNONFranco SEENNormalNONE SEENThe [facility] Community HospitalComment on above: Performed By: #### UAMIC #### [facility] [address] [place] [address] Dr. Eugenia OseiMG MAMM SCREEN 3D SHAKEEL CADon [id number] MAMM SCREEN 3D SHAKEEL CAD Patient: DANIELLE CONROY Exam Date: 04/27/2022 : 1965 Gender:F Ordering : DR CRISTIAN ARELLANO . Admission #: [id number] Family : Order #: [id number] CLICK HERE TO VIEW EXAM RADIOLOGY REPORT [...] esophageal/liver cancer at age 62. LOCATION: [facility] BREAST COMPOSITION: Heterogeneously dense,which may obscure [...] by: John Haji M.D. on 04/27/2022 at 11:34NoPremier Health Miami Valley Hospital SouthOCC BLD IMMUNO SCREENon [id number] BLOODNegativeNormalNEGATIVEThe [facility] Community HospitalComment on above:Performed By: #### OBSCRN #### [facility] [address] [place], [place] [address] Dr. Eugenia Smith AUTO DIFFon [id number] #0.0 103/ulNormal0.0-0.1The [facility] Community HospitalComment on above:Performed By: #### CBC ####[facility] [address] [place], [place] [address]LmDr.Yilan OseiBasophils/100 WBC (Bld)0.8 %Normal0.2-2.0The [facility] Community HospitalComment on above:Performed By: #### CBC ####[facility] [address] [place], [place] [address]Dr.Eugenia ChangEO #0.1 103/ulNormal0.0-0.7The [facility] HospitalComment on above:Performed By: #### CBC ####[facility] [address] [place], [place] [address]Dr.Eugenia ChangEosinophils/100 WBC (Bld)1.6 %Normal 0.9-7.0The [facility] HospitalComment on above:Performed By: #### CBC ####[facility] [address] [place], [place] [address]Dr.Eugenia Osei Erythrocyte distribution width (RBC) [Ratio]12.3 %Aahopg70.0-15.0The [facility] Community HospitalComment on above:Performed By: #### CBC ####[facility] [address] [place], [place] [address]Dr.Eugenia ChangHematocrit (Bld) [Volume fraction]42.5 %Cmfyxu38.0-48.0The [facility] Community HospitalComment on above:Performed By: #### CBC ####[facility] Rg[address] [place], [place] [address]Dr.Eugenia ChangHemoglobin (Bld) [Mass/Vol]14.2 g/dL Opjpls38.0-16.0The [facility] Community HospitalComment on above:Performed By: #### CBC ####[facility] [address] [place], [place] [address]Dr. Eugenia ChangIG #0.01 10e3/ulNormal0.00-0.03The [facility] HospitalComment on above: Performed By: #### CBC ####[facility] [address] [place], [place] [address]Dr.Eugenia ChangIG %0.3 %Normal0.0-0.5The [facility] HospitalComment on above:Performed By: #### CBC ####[facility] [address] [place], [place] [address]Dr.Eugenia OseiLYMPH #1.4 103/ulNormal1.2-3.8The [facility] HospitalComment on above:Performed By: #### CBC ####[facility] Ebwx[address]yj[address] [place], [place] [address]Dr. Eugenia OseiLymphocytes/100 WBC (Bld)38.1 %Ebrepx64.5-60.0The [facility] Comment on above:Performed By: #### CBC ####[facility] [address] [place], [place] [address]Dr.Eugenia OseiMANUAL DIFF REQNONormalThe [facility] Community HospitalComment on above:Performed By: #### CBC ####[facility] Rxrjvkeldz[address] [place], [place] [address]Dr.Eugenia OseiMCH (RBC) [Entitic mass]30.2 pfFurwws25.7-34.0The [facility] Community HospitalComment on above: Performed By: #### CBC ####[facility] Ghdayeaozo[address] [place], [place] [address]Dr.Eugenia OseiMCHC (RBC) [Mass/Vol]33.4 g/dLNormal 29.9-35.2The [facility] HospitalComment on above:Performed By: #### CBC ####[facility] Levcmpolxk[address] [place], [place] [address]Dr. Eugenia OseiMCV (RBC) [Entitic vol]90.4 pDXaqrbk93.0-99.0The [facility] Comment on above:Performed By: #### CBC ####[facility] [address]axq[address] [place], [place] [address]Dr.Eugenia OseiMONO #0.3 103/ulNormal0.3-0.8 The [facility] Community HospitalComment on above:Performed By: #### CBC ####[facility] [address] [place], [place] [address]Dr.Eugenia Osei Monocytes/100 WBC (Bld)7.1 %Normal1.7-12.0The [facility] Community HospitalComment on above: Performed By: #### CBC ####[facility] [address] [place] [address]Dr.Eugenia OseiNEUT #1.9 103/ulNormal1.4-6.5The [facility] HospitalComhealthsource [place] on above:Performed By: #### CBC ####[facility] [address] [place], [place] [address]Dr.Eugenia OseiNeutrophils/100 WBC (Bld)52.1 %Ytvjgc13.0-75.0The [facility] HospitalComhealthsource [place] on above:Performed By: #### CBC ####[facility] [address] [place], [place] [address]Dr.Eugenia OseiPlatelet mean volume (Bld) [Entitic vol]9.5 fLNormal9.5-13.5 [facility] on above:Performed By: #### CBC ####[facility] [address] [place], [place] [address]Dr.Eugenia HirquNHN535 103/uvYwmkhn263-409Hvl [facility] HospitalComhealthsource [place] on above:Performed By: #### CBC ####[facility] T[address]gaq[address] [place], [place] [address]Dr. Eugenia OseiRBC4.70 106/ulNormal4.20-5.40The [facility] on above: Performed By: #### CBC ####[facility] [address] [place], [place] [address]Dr.Eugenia OseiWBC3.7 103/ulCritically low4.0-11.0The [facility] on above:Performed By: #### CBC ####[facility] [address] [place], [place] [address]Dr.Eugenia ChangFREE T3on 24-53-1603LPBF T32.29 pg/mlLNormal2.18-3.98The [facility] on above:Performed By: #### CMP, FT3, LIPID, T4, TSH ####[facility] [address] [place], [place] [address]Dr. Eugenia Osei GLYCOHEMOGLOBIN A1Con 16-63-6663STZ RECOMMENDATIONSEE BELOWNormalThe [facility] Community HospitalComment on above:Result Comment: ADA RECOMMENDED LIMIT 4.0 - 6.0 ADA THERAPEUTIC TARGET < 7.0 ACTION SUGGESTED > 7.0Performed By: #### A1C #### [facility] [address] [place] [address] [address] Eugenia OseiGlucose [Mass/Vol]97 mg/dLBluffton HospitalComment on above:Performed By: #### A1C #### [facility] [address] [place] [address] [address] Eugenia OseiHbA1c (Bld) [Mass fraction]5.0 %Normal4.5-6.2The [facility] HospitalComment on above:Performed By: #### A1C #### [facility] [address] [place] [address] Dr. Eugenia OseiLIPID PROFILEon [id number]-HDL RATIO NORMSEE BELOWNoPremier Health Miami Valley Hospital SouthComment on above:Result Comment: 3.3 - 4.4 LOW RISK 4.4 - 7.1 AVERAGE RISK 7.1 - 11.0 MODERATE RISK >11.0 HIGH RISKPerformed By: #### CMP, FT3, LIPID, T4, TSH ####[facility] [address] [place] [address]Dr. Eugenia ChangCholesterol [Mass/Vol]213 mg/dLCritically high <=200The [facility] HospitalComment on above:Performed By: #### CMP, FT3, LIPID, T4, TSH ####[facility] [address] [place] [address]Dr. Eugenia ChangCholesterol in HDL [Mass/Vol]42 mg/zYPvkfkt35-83Uns [facility] HospitalComment on above:Performed By: #### CMP, FT3, LIPID, T4, TSH ####[facility] [address] [place] [address]Dr. Cristalan ChangCholesterol in LDL [Mass/Vol]145.4 mg/dLBluffton Hospital Comment on above:Performed By: #### CMP, FT3, LIPID, T4, TSH ####[facility] [address] [place] [address]Dr. Eugenia Osei Cholesterol.total/Cholesterol in HDL [Mass ratio]5.1 {ratio}NormalThe [facility] on above:Performed By: #### CMP, FT3, LIPID, T4, TSH ####[facility] [address] [place] [address]Dr. Eugenia OseiHDL NORMAL> or = 60 mg/dl - LOW CARDIOVASCULAR RISK <40 mg/dl - HIGH CARDIOVASCULAR RISKBluffton HospitalComment on above:Performed By: #### CMP, FT3, LIPID, T4, TSH ####[facility] [address] [place], [place] [address]Dr. Eugenia OseiLDL CALC NORMALSEE BELOWBluffton HospitalComment on above:Result Comment: <100 mg/dl OPTIMAL 100 - 129 mg/dl NEAR OR ABOVE OPTIMAL 130 - 159 mg/dl BORDERLINE HIGH 160 - 189 mg/dl HIGH >190 mg/dl VERY HIGHPerformed By: #### CMP, FT3, LIPID, T4, TSH ####[facility] [address] [place], [place] [address]Dr. Eugenia Osei Triglyceride [Mass/Vol]128 mg/dLNormal<=150The [facility] on above:Performed By: #### CMP, FT3, LIPID, T4, TSH ####[facility] [address] [place], [place] [address]Dr. Eugenia OseiVLDL CALC25.6 mg/dLBluffton HospitalComhealthsource [place] on above:Performed By: #### CMP, FT3, LIPID, T4, TSH ####[facility] [address] [place], [place] [address]Dr. Eugenia OseiPROF 14(COMP METB)on 04-06-6930Nwlstte [Mass/Vol]4.3 g/dLNormal3.4-5.0The [facility] HospitalComhealthsource [place] on above:Performed By: #### CMP, FT3, LIPID, T4, TSH ####[facility] [address] [place], [place] [address]Dr. Eugenia OseiAlbumin/Globulin [Mass ratio]1.1 {ratio}Normal The [facility] HospitalComment on above:Performed By: #### CMP, FT3, LIPID, T4, TSH ####[facility] [address] [place] [address]Dr. Yilan ChangALP [Catalytic activity/Vol]98 U/MOsrtzx19-161Rpx [facility] [facility] Comment on above:Performed By: #### CMP, FT3, LIPID, T4, TSH ####[facility] [address] [place] [address]Dr. Yilan ChangALT [Catalytic activity/Vol]23 U/NKheqla15-85Dtq [facility] HospitalComment on above: Performed By: #### CMP, FT3, LIPID, T4, TSH ####[facility] [address] [place] [address]Dr. Yilan ChangAnion gap [Moles/Vol]12.9 mmol/LNormalThe [facility] HospitalComment on above:Performed By: #### CMP, FT3, LIPID, T4, TSH ####[facility] Dx[address] [place], [place] [address]Dr. Yilan ChangAST [Catalytic activity/Vol]16 U/QYmxmgy96-95Zwg [facility] HospitalComment on above:Performed By: #### CMP, FT3, LIPID, T4, TSH ####[facility] [address] [place] [address]Dr. Yilan ChangBilirubin [Mass/Vol]0.7 mg/dLNormal0.2-1.0The [facility] Comment on above:Performed By: #### CMP, FT3, LIPID, T4, TSH ####[facility] [address] [place] [address]Dr. Yilan Osei Calcium [Mass/Vol]8.9 mg/dLNormal8.5-10.1The [facility] HospitalComment on above: Performed By: #### CMP, FT3, LIPID, T4, TSH ####[facility] Broh[address] [place], [place] [address]Dr. Yilan ChangChloride [Moles/Vol]103 mmol/CAufxck48-821Swe [facility] Hospitalment on above:Performed By: #### CMP, FT3, LIPID, T4, TSH ####[facility] [address] [place] [address]Dr. Yilan ChangCO2 [Moles/Vol]30.0 mmol/MLbqgzb16.0-32.0The [facility] HospitalComment on above:Performed By: #### CMP, FT3, LIPID, T4, TSH ####[facility] Xwzookq[address] [place], [place] [address]Dr. Yilan ChangCreatinine [Mass/Vol]0.81 mg/dLNormal0.55-1.02The [facility] Comment on above:Performed By: #### CMP, FT3, LIPID, T4, TSH ####[facility] Uqklmoenuc[address] [place], [place] [address]Dr. Yilan ChangEGFR- AF MAURITIAN>60Normal>=60The [facility] on above:Performed By: #### CMP, FT3, LIPID, T4, TSH ####[facility] Abveptrdoz[address] [place], [place] [address]Dr. Yilan ChangEGFR-NON AF MAURITIAN>60Normal>=60The [facility] on above:Performed By: #### CMP, FT3, LIPID, T4, TSH ####[facility] W[address] [place], [place] [address]Dr. Yilan ChangGlobulin (S) [Mass/Vol]3.8 g/dLNormalThe [facility] HospitalComment on above:Performed By: #### CMP, FT3, LIPID, T4, TSH ####[facility] [address]qarslhwzx[address] [place], [place] [address]Dr. Yilan ChangGlucose [Mass/Vol]86 mg/zLGdxybz60-434Jmx [facility] on above:Performed By: #### CMP, FT3, LIPID, T4, TSH ####[facility] Jowynxpjjo[address] [place], [place] [address]Dr. Yilan ChangPotassium [Moles/Vol]3.9 mmol/LNormal 3.5-5.1The [facility] HospitalComment on above:Performed By: #### CMP, FT3, LIPID, T4, TSH ####[facility] [address] [place] [address]Dr. Yilan ChangProtein [Mass/Vol]8.1 g/dLNormal6.1-8.2The [facility] Comment on above:Performed By: #### CMP, FT3, LIPID, T4, TSH ####[facility] [address] [place] [address]Dr. Yilan Osei Sodium [Moles/Vol]142 mmol/SPkfjey417-222Smb [facility] HospitalComment on above: Performed By: #### CMP, FT3, LIPID, T4, TSH ####[facility] Vovjwp[address] [place], [place] [address]Dr. Yilan ChangUrea nitrogen [Mass/Vol]11.0 mg/dLNormal7.0-18.0The [facility] HospitalComment on above:Performed By: #### CMP, FT3, LIPID, T4, TSH ####[facility] Kfdegacbuz[address] [place], [place] [address]Dr. Yilan ChangUrea nitrogen/Creatinine [Mass ratio] 13.6 mg/mgNormalThe [facility] HospitalComment on above:Performed By: #### CMP, FT3, LIPID, T4, TSH ####[facility] [address] [place] [address]Dr. Yilan HfqteH9ot 95-80-9022U8 [Mass/Vol]8.40 ug/dLNormal 4.80-13.90The [facility] HospitalComment on above:Performed By: #### CMP, FT3, LIPID, T4, TSH ####[facility] Bs[address] [place], [place] [address]Dr. Yilan ChangTSHon 35-34-9713DUZ0.448 uIU/mLNormal0.470-4.680The [facility] Hospitalment on above:Performed By: #### CMP, FT3, LIPID, T4, TSH ####[facility] Nrxmeulhtf[address] [place], [place] [address]Dr. Yilan ChangTSH RANGESEE [facility]uff[facility] HospitalComment on above:Result Comment: <0.34 UIU/ml HYPERTHYROID 0.34-5.60 UIU/ml EUTHYROID >5.60 UIU/ml HYPOTHYROIDPerformed By: #### CMP, FT3, LIPID, T4, TSH ####[facility] [address] [place], [place] [address]IhDr. Eugenia OseiVITAMIN D 25 OHon 58-71-6434KCX D 25-OH63.4 ng/mLNormalPromedica Bay Park HospitalComment on above: Performed By: #### VITAD #### [facility] [address] [place], [place] [address] Dr. Eugenia Hall RANGESSEE [facility]uff[facility] HospitalComment on above: Result Comment: <20 ng/mL Vit D deficient 20 - <30 ng/mL Vit D insufficient 30 - 100 ng/mL Vit D sufficient >100 ng/mL Potential ToxicityPerformed By: #### VITAD #### [facility] [address] [place], [place] [address] Dr. Eugenia OseiCodarshanad-19 PCR ([facility])on 69-75-4858CDND-CoV-2 (COVID-19) RNA KELLI+probe Ql (Unsp spec)Not detectedNormalNOT DETECTEDProm[facility]ica [facility] Comment on above:Result Comment: This test is not yet approved or cleared by the [place] FDA. When there are no FDA-approved or cleared tests available, and other criteria are met, FDA can make tests available under an emergency access mechanism called an Emergency Use Authorization (EUA). The EUA for this test is supported by the [place] of Health and Human Service's (HHS's) declaration that circumstances exist to justify the emergency use of in vitro diagnostics for the detection and/or diagnosis of the virus that causes COVID- 19. This EUA will remain in effect (meaning [...] of clinical signs and symptoms consistent with SARS-CoV-2.Performed By: #### CVDTBH #### [facility] [address] [place] [address] Dr. Eugenia Mccallum AND B AGon 26-17-4174JOVWOTNHBPXXUProMedica Flower Hospital on above:Result Comment: Negative for Flu A protein angiten. Infection due to Flu A cannot be ruled out. FluA angiten in the sample may be below the detection limit of the test.Performed By: #### INFLUAB #### [facility] [address] [place] [address] Dr. Eugenia CuiUBNEGJASON [facility] on above: Result Comment: Negative for Flu B protein antigen. Infection due to Flu B cannot be ruled out. FluB antigen in the sample may be below the detection limit of the test.Performed By: #### INFLUAB #### [facility] [address] [place] [address] Dr. Eugenia Mccallum AGNegativeNormalNEGATIVE SEE COMMENTThe [facility] HospitalComhealthsource [place] on above:Performed By: #### INFLUAB #### [facility] [address] [place] [address] Dr. Eugenia Carter AGNegativeNormalNEGATIVE SEE COMMENTThe [facility] HospitalComhealthsource [place] on above:Performed By: #### INFLUAB #### [facility] [address] [place] [address] Dr. Eugenia OseiINTERNAL CONTROLSWithin Normal LimitsNormalWithin Normal Limits The [facility] HospitalComment on above:Performed By: #### INFLUAB #### [facility] [address] [place] [address] Dr. Eugenia Oviedo Informationon 80-02-9034Xwyhbgyoo [facility] Vital Signs Date TimeVital SignValuePerforming XivdjiydhTuugzqoa45-83-2649 14:45-0500Body ljmfvy042.02 cmThomas Olexa Other [facility] [employer] Other 11-18-2021 14:45-0500Body mass index (BMI) [Ratio] 27.58 kg/i7Bkkmek Olexa Other [facility] [employer] Other 11-18-2021 14:45-0501Body ijmzls69.63 kgThomas Olexa Other [facility] [employer] Other Encounters Encounter DateEncounter TypeCare ProviderFacilityStart: 09-13-2025 End: 13-06-8373rvjqztnbieGhzdtl J LampeFacility:FTMCStart: 10-96-0680ihwjjjfvgs PAUL [facility] Hospitaltart: 15-73-2764wiwxexigbnCVBZS [place] [facility] Hospitaltart: 05-25-2025 End: 20-35-3494mvcccjajvpXPZZSalem City Hospitaltart: 37-79-6183essskuvvznHSVARegency Hospital Toledotart: 03-20-2025 End: 60-78-2018ppvhnxolluDlamvs J LampeFacility:FTMCStart: 03-20-2025 End: 02-49-1877Clz Nona Clark [facility] Start: 25-78-2265jkahkkfnoaOBGIMartins Ferry Hospitaltart: 01-26-2025 End: 29-81-1273ubuhzivzytHCIOSalem City Hospitaltart: 75-52-2612ysnoyvrlhcMXSFRegency Hospital Toledotart: 11-02-2024 End: 20-12-5448uriiqhwqjqHFRVRegency Hospital Toledotart: 09-19-2024 End: 41-23-7967ztekqjhpdbEPHKRegency Hospital Toledotart: 09-12-2024 End: 49-82-8548xucifprhobHxsgca J LampeFacility:FTMCStart: 09-12-2024 End: 15-04-4298Xllxkai encounter procedureTeroctavio Clark [facility] Start: 01-26-2024 End: 90-23-5817Gvn Drop offTeroctavio Clark [facility] Start: 08-23-2023 End: 45-76-2807Ifvdrmb encounter procedureTeresprosper Clark [facility] Start: 07-21-2023 End: 69-30-1417jcwbysfpjuSnjv P Noonan DO Work Phone: NeurologyComment on above:Migraine without aura and without status migrainosus, not intractable (Primary Dx)Start: 07-21-2023 End: 48-98-4440Phsuuheynuaz consultation with patientEric P Noonan DO Work Phone: CC [facility]F[facility] FHCStart: 07-21-2023 End: 08-65-9479Xtq Drop offTeroctavio Clark [facility] Start: 12-22-2022 End: 28-10-8678yscucjsdzoXE BJ WILSON .Facility:F5Cizjz: 11-24-2022 End: 54-19-3779xcvohorlkjXA CRISTIAN ARELLANO .Facility:P6Szgcf: 84-18-0160Xrdktw Mariama P Noonan DO Work Phone: NeurologyComment on above:Refill RequestStart: 07-30-2022 End: 58-99-1471yotjgcnhqvRO BJ WILSON .Facility:R0Eymas: 05-29-2022 End: 01-97-0492frifngzbltUU BJ WILSON .Facility:S2Buosw: 05-22-2022 End: 34-31-0731thoyeemzfiZO BJ HOY .Facility:Q7Nsebj: 05-21-2022 End: 37-27-6255fsswiefcqqVB BJ HOY .Facility:F7Xfeqa: 04-27-2022 End: 95-13-7289ckofkrjssjMY CRISTIAN ARELLANO .Facility:R3Zyiyr: 03-13-2022 Encounter for general adult medical examination without abnormal findingsDR BJ HOY .[facility]: 03-12-2022 End: 03-41-3437cmceafpucaTL BJ HOY .Facility:S5Ajzna: 03-12-2022 End: 93-02-2533Jsnanrjsn for general adult medical examination without abnormal findingsDR BJ HOY .Facility:Q4Gtccw: 03-10-2022 End: 83-09-5946noaqncazzlFJ BJ HOY .Facility:J4Cjaui: 02-21-2022 End: 18-50-9151apqttnbkcoIQ BJ HOY .Facility:V2Qmefy: 02-11-2022 End: 68-86-9876chkkkcjdakIZ BJ HOY .Facility:P2Vqgxq: 09-25-2021 End: 09-80-6018pwvftydanjBtrjpp Olexa Other [place] [employer] Other Start: 68-56-3414Xwwons outpatient new 30 minutes Tolu LixaCHRISTY Wharton [facility] Centertart: 02-06-2021 End: 17-90-5181Pxwmobmlzf hospital visit by physicianCommunity Memorial Hospital Viv Work Phone: RadiologyComment on above:Thunderclap headache [G44.53] Procedures DateProcedureProcedure DetailPerforming ClinicianStart: 45-85-3230Af angiography head w/contrast/noncontrastEric P Noonan DO Work Phone: Start: 09-88-6068Fq angiography neck w/contrast/noncontrastEric P Noonan DO Work Phone: Plan of Treatment DateCare ActivityDetailAuthorStart: 62-74-0588Rghecimll [facility] ClinicStart: 78-38-9965TXUGQRIZWA ASSESSMENTDEPRESSION ASSESSMENTTogus VA Medical Centertart: 93-05-7987Wvctcdjjr vaccinationINFLUENZA (#1)[facility] Centertart: 52-68-9418Dyegy-19 Vaccine (4 - Moderna series)Covid-19 Vaccine (4 - Moderna series)[facility] Centertart: 85-66-6101ZCEBBNHRLC ASSESSMENTDEPRESSION ASSESSMENTTogus VA Medical Centertart: 96-99-1043MUWHF-19 VACCINE (3 - Booster for Moderna series)COVID-19 VACCINE (3 - Booster for Moderna series)[facility] Start: 69-12-7869PYTHR-19 VACCINE (3 - Moderna series)COVID-19 VACCINE (3 - Moderna series)[facility] Centertart: 38-00-7038DIOYNYJK VACCINE (1 of 2) SHINGRIX VACCINE (1 of 2)[facility] Centertart: 48-66-6304MLTYCMOVZ (FIT-DNA) COLOGUARD (FIT-DNA)[facility] Centertart: 15-76-3794OxjvrwksjloJQIOFNTADXT [facility]ertart: 55-13-8334TDQJCHGCDD CANCER SCREENINGCOLORECTAL CANCER SCREENINGTogus VA Medical Centertart: 70-56-6090BN COLONOGRAPHYCT COLONOGRAPHY [facility]ertart: 27-49-5820DPQPYYZQ SCREENDIABETES SCREENUniversity Hospitals Geneva Medical Center Start: 57-62-2936Uomajffs ScreeningDiabetes ScreeningTogus VA Medical Centertart: 43-51-1691WFRGD OCCULT BLOODFECAL OCCULT BLOODTogus VA Medical Centertart: 2012 Lipid 1996 panel - Serum or PlasmaLipid ScreeningTogus VA Medical Centertart: 43-63-0256VEDNL SCREENLIPID SCREENTogus VA Medical Centertart: 29-25-5648NIXPFVHYWUNXD SIGMOIDOSCOPYTogus VA Medical Centertart: 16-38-0139LylydfprsykEsjhbnxhu ClinicStart: 37-56-8124YZZ TESTINGHPV TESTINGTogus VA Medical Centertart: 91-94-3681WPB TESTINGPAP TESTINGTogus VA Medical Centertart: 98-88-9906Bhcde microalbumin profileTogus VA Medical Centertart: 37-09-3109AJLIEZPXE C SCREENINGHEPATITIS C SCREENINGTogus VA Medical Centertart: 70-34-9938GBL SCREENINGHIV SCREENINGTogus VA Medical Centertart: 44-55-9070FNPUYTGPB B (1 of 3 - 3-dose series)HEPATITIS B (1 of 3 - 3-dose series)[facility] Centertart: 97-59-7060Zqzeltfcy B Vaccine (1 of 3 - 3-dose series)Hepatitis B Vaccine (1 of 3 - 3-dose series)[facility] Immunizations Immunization DateImmunizationNotesCare RuaiawjiOaweejgh73-77-4246cejgjolvy virus vaccine, unspecified formulationEric Noonan DO Work Phone: [facility] Payers DatePayer CategoryPayerPolicy [id number] [id number] 2.16.840.1.940472.3.57[id number] 2..840.1.873069.3.57[id number] 2.16.840.1.317768.3.57[id number] 2.16.840.1.363937.3.57[id number] 2.16.840.1.661038.3.57[id number] 2.16.840.1.267676.3.57[id number] 2.16.840.1.357635.3.57[id number] 2.16.840.1.828467.3.57[id number] 2.16.840.1.703324.3.57[id number] 2.16.840.1.867158.3.57[id number] 2.16.840.1.872875.3.57[id number] 2.16.840.1.285914.3.57[id number] 2..0.1.978547.3.57[id number] 2.16.840.1.446927.3.57[id number] 2.0.1.460177.19 Social History DateTypeDetailFacilityStart: 01-07-2021 End: 72-17-6936Rcu Assigned At [facility]art: 95-90-3455Yannnjz smoking status NHISNever smoked tobaccoUniversity Hospitals Geneva Medical Center Work Phone: Start: 16-12-0541Rydkycg use and exposureSmokeless tobacco non-userUniversity Hospitals Geneva Medical Center Work Phone: Start: 30-02-1868Yhd Assigned At BirthFeCommunity Memorial Hospitaltart: 01-07-2021 End: 21-88-9617Uwuybpu of Social functionUniversity Hospitals Geneva Medical CenterAdult Depression Screening Baqifedfjp8Pidjnzovy ClinicStart: 22-50-2399Iimowc identityIdentifies as female gender (finding)[facility]ertart: 52-95-0300Cykofc orientation Heterosexual (finding)[facility] Centertart: 12-08-2020 End: 40-04-6421Iyzuvksc to SARS-CoV-2 (event)Not sureOhioHealth [facility] Hospital smoking statusMary Rutan HospitalexFemale (finding)[facility] Clinical Notes 01-23-2021 to 05-25-2025 Note Date & MnpmUeudPbfucbgw75-40-3759 NoteSUBJECTIVE Reason for Visit: Danielle Conroy is a 59 y.o. year old female patient being seen for follow-up visit. HPI: Danielle Conroy is a 59 y.o. year old female with significant medical history of hypertension, obesity, recent diagnosis of aloppceia in October, and intracranial meningioma recently presented to her PCP with complaints of a fluttering sensation in her chest. Evaluation at that time revealed premature ventricular contractions. She underwent an echocardiogram, which showed a normal ejection fraction. A stress test was negative for ischemia. Holter monitoring revealed a PVC burden of less than 1%. She was previously started on beta-blockers, which initially improved her symptoms. She previously reported experiencing breakthrough episodes with sudden episodes of increased heart rate. 05/25/2025 office visit: Patient was seen and evaluated in the office today for a follow-up visit. She reports feeling excellent overall and has no complaints. She is currently not taking metoprolol. Since joining a gym in February and working with a personal care aide, she has noticed a significant improvement in her blood pressure, with home readings consistently in the 110s systolic. She also enjoys outdoor activities, including hiking, which she is able to do without any dyspnea. She denies chest pain, shortness of breath, palpitations, lightheadedness, or dizziness. She was encouraged to continue her positive lifestyle changes. 01/26/2025 office visit: The patient was seen and evaluated in the office today. She reports experiencing two episodes of heart racing over the past few weeks, both occurring while standing in the kitchen. These episodes were associated with lightheadedness and dizziness and lasted approximately 15 minutes, resolving after she sat down. She denies chest pain or shortness of breath. She was previously on metoprolol tartrate twice daily but was advised to discontinue it. After noticing worsening symptoms, she independently resumed the medication at a reduced dose (once daily), which led to improvement. 11/02/[address] insertion [address] Dr[address] Camacho Status post successful loop recorder implant 09/19/2024 office visit (Dr. Camacho): Danielle Conroy is a 59 y.o. year old with past medical history of hypertension, obesity and intracranial meningioma recently presented to her PCP with complaints of fluttering sensation she was evaluated at that time and noted to have PVCs. In lieu of that she was advised to have an echocardiogram which was onjwxnfkw19-dcgm-fxr lady with a past history of hypertension, obesity and intracranial meningioma recently presented to her PCP with complaints of fluttering sensation she was evaluated at that time and noted to have PVCs. In lieu of that she was advised to have an echocardiogram which was performed which revealed normal EF and stress test that was negative. Holter revealed PVC burden of <1%. She was previously placed on beta-blockers she felt gave her some improvement but of late she has been having breakthrough episodes. She states that she noticed her heart rate suddenly increased from 7230 beats a minute. Medical History[1] Surgical History[2] Problem List[3] family history is not on file. Social History[4] OBJECTIVE Visit Vitals OB Status Postmenopausal Smoking Status Never Physical Exam Constitutional: General Appearance: well-developed, appears stated age. Level of Distress: no acute distress. Neck: Jugular Veins: normal jugular venous pressure. Lungs: Auscultation: no rales or rhonchi and normal breath sounds. Cardiovascular: Rate And Rhythm: regular Heart Sounds: normal S1 and s2; Systolic Murmur: not heard. Diastolic Murmur: not heard. Extremities: no edema Peripheral Pulses: Pulses: full and equal in all extremities except if noted. Abdomen: Inspection and Palpation: non distended or tender and soft. Musculoskeletal: Inspection: no joint tenderness or swelling. Neurologic: Gait: normal gait. Psychiatric: Mental Status: alert and normal affect. Skin: Inspection and Palpation: warm and dry. Allergies: Allergies[5] Outpatient Medications: Current Outpatient Medications Medication Instructions alendronate (FOSAMAX) 70 mg, oral, Weekly aspirin 81 mg, oral, Daily cholecalciferol (Vitamin D-3) 125 MCG (5000 UT) capsule oral, Daily DosoKap 137.5-200 mcg tablet 1 tablet, oral, Daily folic acid (Folvite) 800 mcg tablet oral, Daily metoprolol tartrate (LOPRESSOR) 25 mg, oral, Once Daily PARoxetine CR (PAXIL-CR) 12.5 mg, oral, Daily Recent Labs: No visits with results within 2 Month(s) from this visit. Latest known visit with results is: No results found for any previous visit. Latest labs reviewed 08/16/2024: WBC 4.5 hemoglobin 14.9, platelets 202, potassium 3.5, sodium 139, BUN 16, creatinine 1.08, EGFR 52, glucose 90, calcium 9.5, proBNP 56.0, albumin 4.0, vitamin D 88.0, TSH 2.280 (more content not included)...[facility]03-21-2025 Note SUBJECTIVE Reason for Visit: Danielle Conroy is a 59 y.o. year old female patient being seen for follow-up visit, status post loop recorder 11/02/2024. HPI: Danielle Conroy is a 59 y.o. year old female with past medical history of hypertension, obesity, recent diagnosis of aloppceia in October, and intracranial meningioma recently presented to her PCP with complaints of a fluttering sensation in her chest. Evaluation at that time revealed premature ventricular contractions. She underwent an echocardiogram, which showed a normal ejection fraction. A stress test was negative for ischemia. Holter monitoring revealed a PVC burden of less than 1%. She was previously started on beta-blockers, which initially improved her symptoms. She previously reported experiencing breakthrough episodes with sudden episodes of increased heart rate. 01/26/2025 office visit: The patient was seen and evaluated in the office today. She reports experiencing two episodes of heart racing over the past few weeks, both occurring while standing in the kitchen. These episodes were associated with lightheadedness and dizziness and lasted approximately 15 minutes, resolving after she sat down. She denies chest pain or shortness of breath. She was previously on metoprolol tartrate twice daily but was advised to discontinue it. After noticing worsening symptoms, she independently resumed the medication at a reduced dose (once daily), which led to improvement. 11/02/[address] insertion [address] Dr[address] Camacho Status post successful loop recorder implant 09/19/2024 office visit (Dr. Camacho): Danielle Conroy is a 59 y.o. year old with past medical history of hypertension, obesity and intracranial meningioma recently presented to her PCP with complaints of fluttering sensation she was evaluated at that time and noted to have PVCs. In lieu of that she was advised to have an echocardiogram which was wlpivthqc27-axhw-ikl lady with a past history of hypertension, obesity and intracranial meningioma recently presented to her PCP with complaints of fluttering sensation she was evaluated at that time and noted to have PVCs. In lieu of that she was advised to have an echocardiogram which was performed which revealed normal EF and stress test that was negative. Holter revealed PVC burden of <1%. She was previously placed on beta-blockers she felt gave her some improvement but of late she has been having breakthrough episodes. She states that she noticed her heart rate suddenly increased from 7230 beats a minute. No past medical history on file. No past surgical history on file. Patient Active Problem List Diagnosis Dissection of carotid artery Exertional headache New onset headache Meningioma (CMS/HCC) Migraine without aura and without status migrainosus, not intractable Nummular headache Occipital neuralgia of left side Palpitations family history is not on file. Social History Tobacco Use Smoking status: Never Smokeless tobacco: Never Substance Use Topics Alcohol use: Not Currently Drug use: Never OBJECTIVE Visit Vitals OB Status Postmenopausal Smoking Status Never Physical Exam Constitutional: General Appearance: well-developed, appears stated age. Level of Distress: no acute distress. Neck: Jugular Veins: normal jugular venous pressure. Lungs: Auscultation: no rales or rhonchi and normal breath sounds. Cardiovascular: Rate And Rhythm: regular Heart Sounds: normal S1 and s2; Systolic Murmur: not heard. Diastolic Murmur: not heard. Extremities: no edema Peripheral Pulses: Pulses: full and equal in all extremities except if noted. Abdomen: Inspection and Palpation: non distended or tender and soft. Musculoskeletal: Inspection: no joint tenderness or swelling. Neurologic: Gait: normal gait. Psychiatric: Mental Status: alert and normal affect. Skin: Inspection and Palpation: warm and dry. Allergies: Allergies Allergen Reactions Morphine Itching Outpatient Medications: Current Outpatient Medications Medication Instructions alendronate (FOSAMAX) 70 mg, oral, Weekly aspirin 81 mg, oral, Daily cholecalciferol (Vitamin D-3) 125 MCG (5000 UT) capsule oral, Daily DosoKap 137.5-200 mcg tablet 1 tablet, oral, Daily folic acid (Folvite) 800 mcg tablet oral, Daily metoprolol tartrate (LOPRESSOR) 25 mg, oral, 2 times daily PARoxetine CR (PAXIL-CR) 12.5 mg, oral, Daily Recent Labs: No visits with results within 2 Month(s) from this visit. Latest known visit with results is: No results found for any previous visit. Latest labs reviewed 08/16/2024: WBC 4.5 hemoglobin 14.9, platelets 202, potassium 3.5, sodium 139, BUN 16, creatinine 1.08, EGFR 52, glucose 90, calcium 9.5, proBNP 56.0, albumin 4.0, vitamin D 88.0, TSH 2.280 I have personally reviewed and interpreted the following laboratory results: CBC, CMP, lipid profile, and any additional relevant lab work available at this (more content not included)...[facility]11-12-2024 Note MD Electrophysiology Consult Note MD Cardiology - [facility] Reason for visit: PVC HPI: Danielle Conroy is a 59 y.o. year old with past medical history of hypertension, obesity and intracranial meningioma recently presented to her PCP with complaints of fluttering sensation she was evaluated at that time and noted to have PVCs. In lieu of that she was advised to have an echocardiogram which was [id number]-vpts-gax lady with a past history of hypertension, obesity and intracranial meningioma recently presented to her PCP with complaints of fluttering sensation she was evaluated at that time and noted to have PVCs. In lieu of that she was advised to have an echocardiogram which was performed which revealed normal EF and stress test that was negative. Holter revealed PVC burden of <1%. She was previously placed on beta-blockers she felt gave her some improvement but of late she has been having breakthrough episodes. She states that she noticed her heart rate suddenly increased from 7230 beats a minute. PMH: History reviewed. No pertinent past medical history. PSH: History reviewed. No pertinent surgical history. SH: Social Determinants of Health Tobacco Use: Low Risk (09/19/2024) Patient History Smoking Tobacco Use: Never Smokeless Tobacco Use: Never Passive Exposure: Not on file Alcohol Use: Not on file Financial Resource Strain: Not on file Food Insecurity: Not on file Transportation Needs: Not on file Physical Activity: Not on file Stress: Not on file Social Connections: Not on file Intimate Partner Violence: Not on file Depression: Not on file Housing Stability: Not on file Utilities: Not on file Allergies: Allergies Allergen Reactions Morphine Itching Weight: 72.6kg Visit Vitals BP 130/66 (BP Location: Left arm, Patient Position: Sitting, BP Cuff Size: Adult) Pulse 58 Resp 12 Ht 1.6 m (5' 3 ) Wt 72.6 kg (160 lb) SpO2 95% BMI 28.34 kg/m??? Smoking Status Never BSA 1.8 m??? Meds: Current Outpatient Medications on File Prior to Visit Medication Sig Dispense Refill alendronate (Fosamax) 70 mg tablet Take 70 mg by mouth 1 (one) time per week. aspirin 81 mg chewable tablet Chew 81 mg in the morning. cholecalciferol (Vitamin D-3) 125 MCG (5000 UT) capsule Take by mouth in the morning. DosoKap 137.5-200 mcg tablet Take 1 tablet by mouth in the morning. folic acid (Folvite) 800 mcg tablet Take by mouth in the morning. metoprolol tartrate (Lopressor) 25 mg tablet Take 25 mg by mouth two times daily. PARoxetine CR (Paxil-CR) 12.5 mg 24 hr tablet Take 12.5 mg by mouth in the morning. No current facility-administered medications on file prior to visit. ROS: Cardio Basic Cardiovascular Symptoms: no lightheadedness, no leg edema, no syncope, no orthopnea, no PND, no claudication, Constitutional Constitutional: no fever, no night sweats, no significant weight gain, no significant weight loss, no exercise intolerance Eyes Eyes: no dry eyes, no irritation, no vision change ENMT Ears: no difficulty hearing, no ear pain Nose: no frequent nosebleeds, Mouth/Throat: no sore throat, no bleeding gums, no snoring, no dry mouth, no mouth ulcers, no oral abnormalities, no teeth problems Respiratory Respiratory: no cough, no wheezing, no coughing up blood, no sleep apnea Musculoskeletal Musculoskeletal: no muscle aches, no muscle weakness, joint pain+, no back pain, no swelling in the extremities Integumentary Skin no rash, no ulcer, no varicosities, no discoloration, no pruritus Neurologic Neurologic: no loss of consciousness, no weakness, no numbness, no seizures, no dizziness, no headaches Psychiatric Psych: no depression, feeling safe in relationship, no alcohol abuse, Hematologic/Lymphatic Hematologic/Lymphatic no swollen glands, no bruising Physical Exam: Constitutional General Appearance: well-nourished, well-developed, appears stated age Level of Distress: comfortable Psychiatric Mental Status: alert, normal affect Orientation: oriented to time, place, and person Insight: good judgement Eyes Lids and Conjunctivae: non-injected, no xanthelasma ENMT Ears: no lesions on external ear Nose: no lesions on external nose Oropharynx: no cyanosis, no pallor Neck Neck: supple, trachea midline Carotid Arteries: bilateral normal upstroke, no bruits Jugular Veins: normal jugular venous pressure Thyroid: not enlarged Lungs Respiratory Effort: unlabored Chest Exam: normal curvature, no thoracic deformity Auscultation: clear, no wheezing, no rales, no rhonchi Cardiovascular Rate And Rhythm: regular Heart Sounds: normal S1, normal s2, no gallop Systolic Murmur: not heard Diastolic Murmur: not heard Extremities: no cyanosis, no edema, no peripheral signs of emboli Peripheral Pulses Radial Pulse: normal Abdomen Inspection and Palpation: soft, non distended, no bruit, non tender Musc (more content not included)...[facility]03-20-2024 Evaluation + Plan note Diagnostic Tests Pending * PAP [id number]/26/24 [facility]09-13-2023 NoteHNO ID: [id number] Author: Mariama Noonan, DO Service: ? Author Type: Physician Type: [...] Motrin) Naproxen sodium (Aleve) Mariama Noonan DO [facility] [place] [facility] [address] [place] [address] Level of service: Est level 2 (10-19 min). Time spent 19 min on the day of service, which included preparing to see the patient, [id number] patient care, completing clinical documentation, obtaining and/or reviewing separately obtained history, and counseling and educating the patient/family/caregiver. Medical Decision Making: Medical Decision Making Level: 1 - N/A I have communicated my name and active licensure. The patient's identity and physical location were verified at the time of this visit. Either the patient or their legal vendor representatives has been informed of the risks and benefits of -- and alternatives to -- treatment through a remote evaluation and consents to proceed with the evaluation remotely. cc: Bj M Steve [address] [place] [address] Phone: [phone] (more content not included)...[facility]09-13-2023 History of Present illness Narrative* Mariama Noonan, - 07/21/2023 4:03 PM EDT [facility] - VIRTUAL Follow-up Visit ASSESSMENT: [...] hours as needed for head pain. Take withfood. Do not use with other NSAIDs or [...] Motrin) Naproxen sodium (Aleve) Mariama Noonan DO [facility] [place] Department of Neurology [place] [facility] [address] [place] [address] Level of service: Est level 2 (10-19 min). Time spent 19 min on the day of service, which included preparing to see the patient, [id number] patient care, completing clinical documentation, obtaining and/or reviewing separately obtained history, and counseling and educating the patient/family/caregiver. Medical Decision Making: Medical Decision Making Level: 1 - N/A I have communicated my name and active licensure. The patient's identity and physical location wereverified at the time of this visit. Either the patient or their legal vendor representatives has been informed of the risks and benefits of -- and alternatives to -- treatment through a remote evaluation andconsents to proceed with the evaluation remotely. cc: Bj Wilson [address] [place] [address] documented in this encounter[facility]12-[facility]-2022 Miscellaneous Notes* Telephone Encounter - Maryan Garcia - 10/12/2022 12:54 PM EST Patient last seen on 07/31/21. Overdue for follow up. documented in this encounterUniversity [facility]07-15-2022 NotePROCEDURE: XR HIP RT 2 3V WO PELVIS COMPARISON: None. HISTORY: Pain in right hip joint FINDINGS: BONES:No fracture, acute abnormality, or significant arthropathy. SOFT TISSUES:Negative. No visible soft tissue swelling. EFFUSION:None visible. OTHER: Negative. IMPRESSION: No acute abnormality Electronically authenticated by: NORMA MATTSON Date: 2022-05-21 22:03[facility]11-18-2021 Evaluation note* Encounter Date Diagnosis Assessment Notes Treatment Notes Treatment Clinical Notes Sep, Left wrist pain (ICD-10 - M25.53 2) Sep,Ganglion, left wrist (ICD-10 - M67.432) Extensive discussion was had about the current condition and treatment options available. The patient appears to a ganglion cyst. Patient instructed on the use of cock up wrist splint. Patient advised that if problems persist she may consider excision of cyst. I recommend giving this more time as it may resolve on its own. Patient agreeable with plan [facility] Other 03-18-2021 History of Past illness Narrative* Problem Noted DateDiagnosed DateResolved DatePrimary cough mcmhefry33/18/2021 07/21/2023Thunderclap vakcrzyg80/New daily persistent xvvjwzpe33/3documented as of this encounter (statuses as of 07/22/2023) [facility] Future Appointments Appointment Date:08/04/2023 08:30:00 AM Scheduled Provider: Location:FT.MAMMOGRAM Appointment Type:MA Screen (FT) Appointment Date:08/04/2023 09:00:00 AM Scheduled Provider: Location:FT.BD Appointment Type:BD Bone Density (FT) Diagnostic Tests Pending * PAP [id number] 07/21/23 Future Scheduled Tests Radiology* BD Bone Density DEXA 08/04/23 * MA Mamm Screen w/CAD if perf and 3D Shakeel 08[facility]04/23 [facility] Future Appointments Appointment Date:09/13/2025 08:30:00 AM Scheduled Provider: Location:FT.MAMMOGRAM Appointment Type:MA Screen (FT) Appointment Date:09/13/2025 09:00:00 AM Scheduled Provider: Location:FT.BD Appointment Type:BD Bone Density (FT) Diagnostic Tests Pending * PAP [id number] 03/20/25 Future Scheduled Tests Radiology* BD Bone Density DEXA 09/13/25 * MA Mamm Screen w/CAD if perf and 3D Shakeel 09/13/25 [facility] Evaluation note* Diagnosis Thunderclap headache Headache New daily persistent headache Primary cough headache Exertional headache Headache Dissection of carotid artery (HCC) Dissection of carotid artery documented in this encounter [facility]* Diagnosis Migraine without aura and without status migrainosus, not intractable- Primary Migraine without aura, without mention of intractable migraine without mention of status migrainosus documented in this encounter [facility] general Narrative - Reported* Type Description Date Medical History brain tumor Surgical Historybrain tumor [id number] HistorySee Above Hospitalization Historycolitis [place] [employer] Other Hospital course Narrative No data available for this section [facility] No data available for this section [facility] No data available for this section [facility] HospitalReason for referral (narrative)* Diagnostic Procedure Only (Routine) - ClosedSpecialtyDiagnoses / ProceduresReferred By ContactReferred To ContactCT IMAGING Diagnoses Dissection of carotid artery (HCC) Thunderclap headache Procedures CTA NECK W IVCON CTA NECK, W/WO C, W/3D CTA HEAD WWO C, W/3D Mariama Noonan, [address] [place] [address] Ct Imaging Referral IDStatusReasonStart DateExpiration DateVisits RequestedVisits [id number] Auto-Generated Referral /[id number] * Diagnostic Procedure Only (Routine) - ClosedSpecialtyDiagnoses / Procedures Referred By ContactReferred To ContactCT IMAGING Diagnoses Thunderclap headache New daily persistent headache Primary cough headache Exertional headache Procedures CTA HEAD WO/W IVCON CTA HEAD WWO C, W/3D Noonan, Mariama P, DO [address] [place] [address] Ct Imaging Referral IDStatusReasonStart DateExpiration DateVisits RequestedVisits [id number] Auto-Generated Referral [facility] Narrative* Diagnostic Procedure Only (Routine) - ClosedSpecialtyDiagnoses / ProceduresReferred By ContactReferred To Contact CT IMAGING Diagnoses Dissection of carotid artery (HCC) Thunderclap headache Procedures CTA NECK W IVCON CTA NECK, W/WO C, W/3D CTA HEAD WWO C, W/3D Noonan, Mariama P, DO [address] [place] [address] Ct Imaging Referral IDStatusReasonStart DateExpiration DateVisits RequestedVisits [id number] Auto-Generated Referral [facility] Summary Purpose Family History No Family History Records FoundNo Family History Records Found No data available for this section No data available for this section No data available for this section No data available for this section No Family History Records FoundNo Family History Records FoundNo Family History Records FoundNo Family History Records FoundNo Family History Records FoundNo Family History Records FoundNo Family History Records FoundNo Family History Records FoundNo Family History Records FoundNo Family History Records Found Advance Directives No [...] FOR VISIT (unrecogniz ed section and content) ReasonOnset DateCommentsRefill Ryyouoz60/05/2022ReasonCommentsMigraine Source Comments (unrecognize d section and content) In the event this informatio n is protected by the Federal Confidentiality of Alcohol and Drug Abuse Patient Records regulations: The Federal rules restrict any use of the information to criminally investigate or prosecute any alcohol or drug abuse patient.[facility] CenterIn the event this information is protected by the Federal Confidentiality of Alcohol and Drug Abuse Patient Records regulations: The Federal rules restrict any use of the information to criminally investigate or prosecute any alcohol or drug abuse patient.[facility] CenterIn the event this information is protected by the Federal Confidentiality of Alcohol and Drug Abuse Patient Records regulations: The Federal rules restrict any use of the information to criminally investigate or prosecute any alcohol or drug abuse patient.[facility] Care Teams (unrecognized sec tion and content) Team MemberRelationshipSpecialtyStart DateEnd Date Bj Wilson MD [address] [place] [address] PCP - GeneralFamily Medicine01/01/21 Bj Wilson MD [address] [place] [address] ReferringFamily Medicine01/01/21Team MemberRelationshipSpecialtyStart DateEnd Date Bj Wilson MD PCP - GeneralFamily Medicine01/01/21 Bj Wilson MD ReferringFamily Medicine01/01/21Team MemberRelationshipSpecialtyStart DateEnd Date Bj Wilson MD PCP - GeneralFamily Medicine01/01/21 Bj Wilson MD Referringmi Medicine01/01/21 INFORMATION SOURCE (unrecogn ized section and content) DATE CREATED AUTHOR 12/27/2022 [facility] DATE CREATED AUTHOR AUTHOR'S ORGANIZ ATION 07/23/2023 [facility] DATE CREATED AUTHOR AUTHOR'S ORGANIZ ATION 03/21/2025 [facility] DATE CREATED AUTHOR AUTHOR'S ORGANIZ ATION 09/08/2025 [facility] DATE CREATED AUTHOR AUTHOR'S ORGANIZ ATION 09/14/2025 [facility] DATE CREATED AUTHOR AUTHOR'S ORGANIZ ATION 09/15/2025 [facility] DATE CREATED AUTHOR AUTHOR'S ORGANIZ ATION 09/17/2025 [facility] FOR RECORDS PERTAINING TO PATIENTS WHO [...] BE BASED ON THE PRIMARY CLINICAL RECORDS. [facility] [employer] [facility]. provides no warranty or guarantee of the accuracy or completeness of information in this document.
--- NOTE | 2025-10-02 11:34 | XR_ITS ---
The [address] [address] Patient Name: NIC CONROY MRN: [id number] date: 1965 Sex: F Assigned Patient Location: LAB Current Patient Location: Accession/Order Number: [id number] Exam Date: 10/02/2025 11:50 Report Date: 10/03/2025 08:07 At the request of: BJ GAR MD Procedure: XR lumbar spine min 4V CLINICAL HISTORY: Low back and tailbone pain pain for the past few months, greater on the right. No reported injury. LUMBAR SPINE - 5 views COMPARISON: CT 05/22/2022 AP, lateral, both oblique and coned down lateral view of the lumbosacral junction was obtained. No acute compression fracture or displacement is identified. There is a pseudoarthrosis of the lumbosacral junction on the left. There is slight disc space narrowing at the lumbosacral junction. There is minimal endplate spurring and lower lumbar facet hypertrophy. No definite pars defect is seen. There are no paraspinal soft tissue abnormalities. XR/XR sacrum coccyx min 2V IMPRESSION: MINIMAL DEGENERATIVE CHANGE. NO ACUTE BONY FINDINGS. SACRUM AND COCCYX -3 views COMPARISON: CT 05/22/2022 Lateral as well as AP views in upward and downward projection were obtained. No fracture or displacement is identified. The SI joints are intact. There is minimal sclerosis however no apparent ankylosis. The sacral foramen are maintained. No soft tissue abnormalities are seen. IMPRESSION: NO ACUTE BONY FINDINGS. Impression dictated by: Lily Krause M.D. 10/03/2025 8:07 AM Dictation Location: [place] [address] Electronically authenticated by: [id number] Y Date: 10/03/2025 08:07
--- NOTE | 2025-10-02 11:34 | XR_ITS ---
The [address] [address] Patient Name: NIC CONROY MRN: [id number] date: 1965 Sex: F Assigned Patient Location: LAB Current Patient Location: Accession/Order Number: [id number] Exam Date: 10/02/2025 11:50 Report Date: 10/03/2025 08:07 At the request of: BJ GAR MD Procedure: XR lumbar spine min 4V CLINICAL HISTORY: Low back and tailbone pain pain for the past few months, greater on the right. No reported injury. LUMBAR SPINE - 5 views COMPARISON: CT 05/22/2022 AP, lateral, both oblique and coned down lateral view of the lumbosacral junction was obtained. No acute compression fracture or displacement is identified. There is a pseudoarthrosis of the lumbosacral junction on the left. There is slight disc space narrowing at the lumbosacral junction. There is minimal endplate spurring and lower lumbar facet hypertrophy. No definite pars defect is seen. There are no paraspinal soft tissue abnormalities. XR/XR lumbar spine min 4V IMPRESSION: MINIMAL DEGENERATIVE CHANGE. NO ACUTE BONY FINDINGS. SACRUM AND COCCYX -3 views COMPARISON: CT 05/22/2022 Lateral as well as AP views in upward and downward projection were obtained. No fracture or displacement is identified. The SI joints are intact. There is minimal sclerosis however no apparent ankylosis. The sacral foramen are maintained. No soft tissue abnormalities are seen. IMPRESSION: NO ACUTE BONY FINDINGS. Impression dictated by: Lily Krause M.D. 10/03/2025 8:07 AM Dictation Location: [place] [address] Electronically authenticated by: [id number] Y Date: 10/03/2025 08:07
[2025-10-02 11:56] LABS: Alanine Aminotransferase 27 U/L (14-59); Albumin Globulin Ratio 1.2; Albumin Level 4.2 g/dL (3.4-5.0); Alkaline Phosphatase 84 U/L (46-116); Anion Gap 14.2; Aspartate Amino Transferase 16 U/L (15-37); Blood Urea Nitrogen 16.0 mg/dL (7.0-18.0); Calcium 9.4 mg/dL (8.5-10.1); Carbon Dioxide 27.6 mmol/L (21.0-32.0); Chloride 103 mmol/L (98-107); Estimated GFR (African America >60 (>=60 mL/min/1.73m^2); Estimated GFR (Non-African Ame >60 (>=60 mL/min/1.73m^2); Globulin 3.4 g/dL; Glucose 91 mg/dL (74-106); Potassium 3.8 mmol/L (3.5-5.1); Sodium 141 mmol/L (136-145); Total Protein 7.6 g/dL (6.4-8.2)
== END 2025-10-02 11:15 | disposition home or self-care (01) ==
PROVIDERS: PCP Family Medicine; Visit Provider Family Medicine
DX: M53.3 Sacrococcygeal disorders, not elsewhere classified (principal)
CPT/HCPCS: 36415; 72110; 72220; 80053

== ENCOUNTER 2025-11-07 12:43 | Outpatient (OUT) | payer OTHER, SELFPAY ==
--- OUTSIDE RECORDS SUMMARY | 2025-11-07 12:46 | XMS_ITS | Patient Health Record ---
Author Organization [facility] in [place] Address [address] [place] [address] Care Team Providers Care Byproducts Extractor Name Role Phone Gael Gar Primary Care Provider Allergies No Known Allergies Results Component Value Reference Range Notes PROF 14(COMP METB) Reviewed date:10/02/2025 04:08:43 PM Interpretation: Performing Lab: Notes/Report: [facility] , Sodium 141 136-145 mmol/L Potassium3.83.5-5.1 mmol/JHcgljfrc28812-502 mmol/LCarbon Axfxsdm81.621.0-32.0 mmol/LAnion Gap14.0Afzcatr8497-415 mg/dLBlood Urea Ebnmfnsh47.07.0-18.0 mg/dL Creatinine0.930.55-1.02 mg/dLEstimated GFR ( Jo Ann>60>=60 mL/min/1.73m 2Estimated GFR (Non- Marjorie>60>=60 mL/min/1.73m 2BUN Creatinine Ratio17.2 Calcium9.48.5-10.1 mg/dLBilirubin Total0.60.2-1.0 mg/dLAspartate Amino Xikzliiqjjl3591-28 U/LAlanine Cednypcsnjuzycrr5968-76 U/LAlkaline Adxhngxufsn06 46-116 U/LTotal Protein7.66.4-8.2 g/dLAlbumin Level4.23.4-5.0 g/dLGlobulin3.4 Albumin Globulin Ratio1.2Performing Lab:see noteML - [facility] LBCBC AUTO DIFF Reviewed date:01/26/2025 04:28:54 PM Interpretation: Performing Lab: Notes/Report: [facility] ,White Blood Count4.64.0-11.0 10 3/uLRed Blood Count4.864.20-5.40 10 6/uL Vtlqlroins05.212.0-16.0 g/zHXiembkgkso53.536.0-48.0 %Mean Corpuscular Lflbng49.5 81.0-99.0 fLMean Corpuscular Pyhkwjvpuj70.326.7-34.0 pgMean Corpuscular HGB Conc 34.929.9-35.2 g/dLRed Cell Distribution Width12.211.0-15.0 %Platelet Sqfcr909 150-450 10 3/uLMean Platelet Volume9.69.5-13.5 fLNeutrophils Percent Auto57.2 43.0-75.0 %Lymphocytes Percent Auto33.220.5-60.0 %Monocytes Percent Auto8.01.7- 12.0 %Eosinophils Percent Auto0.70.9-7.0 %Basophils Percent Auto0.70.2-2.0 % Immature Granulocytes Pct Auto0.20.0-0.5 %Neutrophils Absolute Auto2.61.4-6.5 10 3/uLLymphocytes Absolute Auto1.51.2-3.8 10 3/uLMonocytes Absolute Auto0.40.3-0.8 10 3/uLEosinophils Absolute Auto0.00.0-0.7 10 3/uLBasophils Absolute Auto0.00.0- 0.1 10 3/uLImmature Granulocytes Abs Auto0.010.00-0.03 10 3/uLPerforming Lab:see noteML - [facility] LBXR lumbar spine min 4V Reviewed date:10/03/2025 12:46:29 PM Interpretation: Performing Lab: Notes/Report: Source Facility: [facility]-[address] [place] [address] [place] [address] XRay Report Signed Patient: DANIELLE CONROY MR#: [id number] : 1965 Acct:[id number] Age/Sex: 60 / F ADM Date: 10/02/25 Loc: LAB Attending Dr: Alan Gar M.D. Ordering Physician: Alan Gar M.D. Date of Service: 10/02/25 Procedure(s): XR lumbar spine min 4V Accession Number(s): [id number] cc: Alan Gar M.D. [address] [address] Patient Name: DANIELLE CONROY MRN: [id number] date: 1965 Sex: F Assigned Patient Location: LAB Current Patient Location: Accession/Order Number: [id number] Exam Date: 10/02/2025 11:50 Report Date: 10/03/2025 08:07 At the request of: ALAN GAR MD Procedure: XR lumbar spine min 4V CLINICAL HISTORY: Low back and tailbone pain pain for the past few months, greater on the right. No reported injury. LUMBAR SPINE - 5 views COMPARISON: CT 05/22/2022 AP, lateral, both oblique and coned down lateral view of the lumbosacral junction was obtained. No acute compression fracture or displacement is identified. There is a pseudoarthrosis of the lumbosacral junction on the left. There is slight disc space narrowing at the lumbosacral junction. There is minimal endplate spurring and lower lumbar facet hypertrophy. No definite pars defect is seen. There are no paraspinal soft tissue abnormalities. XR/XR lumbar spine min 4V IMPRESSION: MINIMAL DEGENERATIVE CHANGE. NO ACUTE BONY FINDINGS. SACRUM AND COCCYX -3 views COMPARISON: CT 05/22/2022 Lateral as well as AP views in upward and downward projection were obtained. No fracture or displacement is identified. The SI joints are intact. There is minimal sclerosis however no apparent ankylosis. The sacral foramen are maintained. No soft tissue abnormalities are seen. IMPRESSION: NO ACUTE BONY FINDINGS. Impression dictated by: Lily Krause M.D. 10/03/2025 8:07 AM Dictation Location: [place] [address] Electronically authenticated by: [id number] Y Date: 10/03/2025 08:07 Dictated By: Lily Krause M.D. Signed By: 10/03/25 0810 DD/ 0807 TD/TT: Laborer/Key Man:XR sacrum coccyx min 2V Reviewed date:10/03/2025 12:46:29 PM Interpretation: Performing Lab: Notes/Report: Source Facility: [place] [address] XRay Report Signed Patient: DANIELLE CONROY MR#: [id number] : 1965 Acct:[id number] Age/Sex: 60 / F ADM Date: 10/02/25 Loc: LAB Attending Dr: Alan Gar M.D. Ordering Physician: Alan Gar M.D. Date of Service: 10/02/25 Procedure(s): XR sacrum coccyx min 2V Accession Number(s): [id number] cc: Alan Gar M.D. [place] [address] Patient Name: DANIELLE CONROY MRN: [id number] date: 1965 Sex: F Assigned Patient Location: LAB Current Patient Location: Accession/Order Number: [id number] Exam Date: 10/02/2025 11:50 Report Date: 10/03/2025 08:07 At the request of: ALAN GAR MD Procedure: XR lumbar spine min 4V CLINICAL HISTORY: Low back and tailbone pain pain for the past few months, greater on the right. No reported injury. LUMBAR SPINE - 5 views COMPARISON: CT 05/22/2022 AP, lateral, both oblique and coned down lateral view of the lumbosacral junction was obtained. No acute compression fracture or displacement is identified. There is a pseudoarthrosis of the lumbosacral junction on the left. There is slight disc space narrowing at the lumbosacral junction. There is minimal endplate spurring and lower lumbar facet hypertrophy. No definite pars defect is seen. There are no paraspinal soft tissue abnormalities. XR/XR sacrum coccyx min 2V IMPRESSION: MINIMAL DEGENERATIVE CHANGE. NO ACUTE BONY FINDINGS. SACRUM AND COCCYX -3 views COMPARISON: CT 05/22/2022 Lateral as well as AP views in upward and downward projection were obtained. No fracture or displacement is identified. The SI joints are intact. There is minimal sclerosis however no apparent ankylosis. The sacral foramen are maintained. No soft tissue abnormalities are seen. IMPRESSION: NO ACUTE BONY FINDINGS. Impression dictated by: Lily Krause M.D. 10/03/2025 8:07 AM Dictation Location: [place] [address] Electronically authenticated by: [id number] Y Date: 10/03/2025 08:07 Dictated By: Lily Krause M.D. Signed By: 10/03/2510 DD/ 6 TD/TT: Laborer/Key Man:PROF Maria(COMP METB) Reviewed date:01/26/2025 04:28:54 PM Interpretation: Performing Lab: Notes/Report: [facility] ,Ailwyq472657-424 mmol/LPotassium3.83.5-5.1 mmol/KVhsopnaf05396-924 mmol/LCarbon Fjuxoyt34.621.0-32.0 mmol/LAnion Gap14.4Tdyqbfa5037-184 mg/dLBlood Urea Nitrogen 12.07.0-18.0 mg/dLCreatinine0.910.55-1.02 mg/dLEstimated GFR ( Jo Ann>60 >=60 mL/min/1.73m 2Estimated GFR (Non- Marjorie>60>=60 mL/min/1.73m 2BUN Creatinine Ratio13.3Lrpzsha8.48.5-10.1 mg/dLBilirubin Total0.80.2-1.0 mg/dL Aspartate Amino Tmrdlgfliey7571-09 U/LAlanine Sjgyluilzctkraii4593-59 U/L Alkaline Umconydgdkh8375-513 U/LTotal Protein7.46.4-8.2 g/dLAlbumin Level4.13.4- 5.0 g/dLGlobulin3.3Albumin Globulin Ratio1.2Performing Lab:see noteML - [facility] LBMAGNESIUM Reviewed date:01/26/2025 04:28:54 PM Interpretation: Performing Lab: Notes/Report: [facility] ,Magnesium2.21.8-2.4 mg/dLPerforming Lab:see noteML - [facility] LB Reason For Referral No Information Medications Medication SIG (Take, Route, Frequency, Duration) Notes Start Date End Date Status Spironolactone 25 MG TAKE 1 TABLET BY MOUTH EVER Y DAY; Duration: ActivePARoxetine HCl ER 12.5 MGTAKE 1 TABLET BY MOUTH EVERY DAY; Duration: 90 daysActiveSimvastatin 20 MG1 tablet in the evening Orally Once a day; Duration: 90 days5ActiveFolic AcidActiveEPINEPHrine 0.3 MG/0.3MLInject 0.3 ml IM as needed for allergic reaction; Duration: 4ActiveMeloxicam 15 MG1 tablet Orally Once a day; Duration: 30 days10/02/2025tiveFosamax 70 MG1 tablet 30 minutes before the first food, beverage or medicine of the day with plain water Orally once a week; Duration: 30 days10/03/2025tiveAspirin 81 81 MG1 tablet Orally Once a dayActiveMinoxidilActiveDosoKap 137.5-200 MCGTAKE 1 TABLET BY MOUTH EVERY DAY Oral; Duration: 90 DaysActive Social History Tobacco Use: Social History Observation Description Date Details (start date - stop date) Never Smoker NA - NA Tobacco Use/Smoking Question Answer Notes Patient is a nonsmoker Alcohol Screen (Audit-C) Question Answer Notes Did you have a drink containing alcohol in the p ast year? No Lgatrk9WoemrkaqxgwgtdDvrgajjc Problems Problem Type SNOMED Code ICD Code Onset Dates Problem Status W/U Status Risk Notes Problem Dysfunctional uterin e bleeding (72560744205390) Dysfunctional uterine bleeding (626.8) ActiveconfirmedProblemStreptococcal pharyngitis (96650773)Streptococcal pharyngitis (J02.0)ActiveconfirmedProblemDiverticular disease of colon (450103144)Diverticulosis of large intestine without perforation or abscess without bleeding (K57.30)ActiveconfirmedProblemPigmentation (869454518)Other specified disorders of pigmentation (L81.8)ActiveconfirmedProblemDisorder of bone (04507410)Other specified disorders of bone density and structure, unspecified site (M85.80)ActiveconfirmedProblemParesthesia (finding) (53354598) Paresthesia of skin (R20.2)ActiveconfirmedProblemDizziness and giddiness (973773229)Dizziness and giddiness (R42)ActiveconfirmedProblemMigraine variant with headache (disorder) (820287930)Migraine headache (G43.909)Activeconfirmed ProblemHypertension (30858479)Hypertension (I10)ActiveconfirmedProblemEczema (57807173)Eczema (L30.9)ActiveconfirmedProblemDiverticular disease of colon (996405563)Diverticulosis (K57.90)ActiveconfirmedProblemAcute sinusitis (78170298)Acute sinusitis (J01.90)ActiveconfirmedProblemArthralgia of the pelvic region and thigh (642432247)Right hip pain (M25.551)ActiveconfirmedProblem Overweight (465497837)Over weight (E66.3)ActiveconfirmedProblemNeutropenia (045200128)Neutropenia (D70.9)ActiveconfirmedProblemGanglion cyst (62036056) Ganglion cyst (M67.40)ActiveconfirmedProblemDysfunctional uterine bleeding (59285976474890)Dysfunctional uterine bleeding (N93.8)ActiveconfirmedProblem Right lower quadrant pain (899885610)Abdominal pain, RLQ (R10.31)Activeconfirmed ProblemInfection (30892889)Infection (B99.9)ActiveconfirmedProblemSacroiliac joint pain (668870972)Sacro-iliac pain (M53.3)ActiveconfirmedProblemMixed anxiety and depressive disorder (098894967)Anxiety and depression (F41.9)Active confirmedProblemVentricular premature depolarization (976052252)Multifocal PVCs (I49.3)ActiveconfirmedProblemFluttering heart (452462161)Fluttering heart (I49.8)ActiveconfirmedProblemIntracranial meningioma (748248868)Intracranial meningioma (D32.0)ActiveconfirmedProblemPeripheral vertigo (02832537)Vertigo, peripheral (H81.399)Activeconfirmed Vital Signs Temperature 98.1 degrees Fahrenheit 03/14/2025 Blood pressure tudlctctn16 mm Hg10/02/20254802Pqrypq63 in10/02/2025lood pressure ffyicxlf199 mm Hg10/02/20251466Btzkae453.2 lbs112/02/2024BMI27.67 kg/m210/02/2025 Encounters Encounter Location Date Provider Diagnosis [place] [address] [place] [address] 03/14/2025 Gael Hoy Acute non-recurrent sinusitis, unspecified location J01.90 and Nasal congestion R09.81 [facility] [address] [place] [address] 10/02/2025 Gael Hoy Sacro-iliac pain M53 .3 and Hypercholesteremia E78.00 [facility] [address] [place] [address] 10/02/2025 Gael Hoy [facility] [place] [address] 10/03/2025Doug HoySacro-iliac pain M53.3[place] [address] [place] [address]/26/2025Doug Hoy Assessments Encounter Date Diagnosis (ICD Code) Assessment Notes Treatment Notes Treatment Clinical Notes Section Notes 03/14/2025 Acute non-recurrent sinusitis, unspecified location (ICD-10 - J01.90) Rest and drink more liquids, especially water. You may use a humidifier or vaporizer to help keep the drainage moist. Nreb-efx-rjpgnpa Nasal Saline may help the stuffy and runny nose. Use Ibuprofen and or Tylenol as needed for fever, chills, body aches or pain. Children 5 years old should not be given fqbq-dtw-asnupur cough and cold medications such as guaifenesin and dextromethorphan. If you're over age 5, you may try xpol-lwf-dobpfzx cold medications such as guaifenesin and dextromethorphan, or multi-symptom cold reliever such as Dayquil to help reduce the symptoms. Antibiotics have been pre scribed. You should take these until completed and follow the directions. Antibiotics can sometimescause upset stomach, and in rare cases, serious allergic reactions or serious gastrointestinal problems. If you start having severe abdominal pain, severe vomiting, or bloody diarrhea, you should be r eevaluated by your physician or urgent care immediately. Follow up with your Primary Care Provider or return to clinic if symptoms do not improve within 3-5 days10/02/2025Sacro-iliac pain (ICD-10 - M53.3)10/02/2025Hypercholesteremia (ICD-10 - E78.00)10/03/2025Sacro-iliac pain (ICD-10 - M53.3)03/14/2025Nasal congestion (ICD-10 - R09.81) Plan Of Treatment Pending Test Test Name Order Date CMP (COMPLETE METABOLIC PANEL) IRON, TOTAL 08/16/2024 CBC WITH DIFF (EXP 09/2025) 08/16/2024 VITAMIN D, 25 LEVEL (TOTAL) 08/16/2024 EKG w Interp & Report - performed 2023 CARDIO Stress Test - Cardiolite 08/16/20 CARDIO Echocardiogram 08/16/2024 FECAL OCCULT BLOOD 12/15/2023 CMP - Comprehensive Metabolic Panel 05/2024 CBC W/AUTO DIFF 12/15/2023 CBC W/AUTO DIFF 04/13/2024 High Sensitivity Troponin 08/16/2024 MRI Sacrum Coccyx w/o Contrast 5 FSH 04/06/2024 GLYCOHEMOGLOBIN A1C 12/15/2023 VIT B12 AND FOLATE 04/06/2024 XR LSPINE MIN 4 VIEWS 10/02/2025 THYROID PANEL (T4/TSH/FREE T3) 4 THYROID PANEL (T4/TSH/FREE T3) 4 Holter Monitor - 3 days up to 14 days Vitamin D, 25-Hydroxy 04/06/2024 Insurance Providers Payer Name Payer Address Payer Phone Subscriber Number Group Number Insured Name Patient Relationship to Insured Coverage Start Date Coverage End Date MMO [employer] [address] [place] [address] [id number] Danielle Conroy Self - patient is the insured Medications Administered Medication Instructions Date of Administration Dosage Notes Ketorolac Tromethamine 360 mg Medical (General) History Medical History History ICD Code Dizziness and giddiness R42 Fluttering heart I49.8 Right hip pain M25.551 Intracranial meningioma D32.0 Diverticulosis of large inte amy without perforation or abscess without bleeding K57.30 Hypertension I10 Anxiety and depression F41.9 Dysfunctional uterine bleeding 626.8 Dysfunctional uterine bleeding N93.8 Migraine headache G43.909 Vertigo, peripheral H81.399 Over weight E66.3 Abdominal pain, RLQ R10.31 Streptococcal pharyngitis J02.0 Infection B99.9 Ganglion cyst M67.40 Diverticulosis K57.90 Other specified disorders of pigmentatio n L81.8 Eczema L30.9 Surgical History Surgery Date(Month/Year) Laproscopy Brain Surgery
--- OUTSIDE RECORDS SUMMARY | 2025-11-07 12:46 | XMS_ITS | Clinical Summary ---
Author Organization [facility] Address [address] [place] [address] Care Team Providers Care Unified Communications Architect Name Role Phone Alan Wilson MD Primary Care Provider [phone] Allergies No known active allergies Medications MedicationSigDispense [...] of skin07/26/2023 07/26/2023rthritis of left wristtrophy of ioakeh7407/25/2023 07/25/2023asal cell carcinoma of face Immunizations ImmunizationAdministration DatesNext IhbBZT3002/21/2022Influenza, Unspecified 09/06/2017Influenza, injectable, quadrivalent, preservative free10/28/2021, 09/10/2020Influenza, seasonal, /01/2020Zoster, Dxpyinhiiqn01/03/2022 ,10/28/2021 Family History Medical HistoryRelationNameCommentsCancerFatherLarry SpringCancerMotherMary SpringCancerPaternal GrandfatherDiabetesPaternal GrandmotherRelationNameStatus CommentsFatherLarry SpringMaternal GrandfatherDeceasedMaternal Grandmother DeceasedMotherMary SpringPaternal GrandfatherDeceasedPaternal Grandmother Social History Tobacco UseTypesPacks/DayYears UsedDateSmoking Tobacco: NeverSmokeless Tobacco: Never Tobacco Cessation:Counseling Given: Not Answered Alcohol UseStandard Drinks/WeekCommentsNever0 (1 standard drink = 0.6 oz pure alcohol)CommentsUnknownSex and Gender InformationValueDate RecordedSex Assigned at BirthNot on fileLegal KqcMvnpjy77/15/2023 7:05 PM EDTGender Identity Not on fileSexual OrientationNot on file Last Filed Vital Signs Vital SignReadingTime TakenCommentsBlood Qkjjfvdf235/8811/24/2022 12:00 PM EST Pulse--Temperature--Respiratory Rate--Oxygen Saturation--Inhaled Oxygen Concentration--Mbyfkm76.4 kg (164 lb)07/26/2023 9:41 AM FTBAadstu656 cm (5' 3 ) 07/26/2023 9:41 AM EDTBody Mass Index29.05007/26/2023 9:41 AM EDT Plan of Treatment Not on file Insurance Care Teams Team MemberRelationshipSpecialtyStart DateEnd Alan Wilson MD PCP - GeneralFamily Medicine07/20/23
--- OUTSIDE RECORDS SUMMARY | 2025-11-07 12:46 | XMS_ITS | Clinical Summary ---
Author Organization [facility] Address [address] [place] [address] Care Team Providers Care Studio Potter Name Role Phone Alan Wilson MD Primary Care Provider [phone] Allergies Active AllergyReactionsCriticalityNoted UrfyItlxuufdZxapwnkxTkzquww25/02/2021 Medications MedicationSigDispense QuantityRefillsLast FilledStart DateEnd DateStatus alendronate [...] in the morning.5Active Active Problems ProblemNoted DateDiagnosed TnjuJcftmoegzr42/12/0075Rllrnfycswru52/12/2024 Migraine without aura and without status migrainosus, not /13/2023 Dissection of carotid urlvrx9601/23/2021xertional grsgiems00/18/2021New onset vikrkwiz96/18/2021Nummular qoccjaun67/18/2021Occipital neuralgia of left side 01/23/2021 Encounters DateTypeDepartmentCare HkxbOgtlroxyyoo56/01/2025 12:45 PM ESTAncillary Procedure [facility] [address] [place] [address] Awareness of hlefysmgzo69/01/2025Orders Only [facility] [address] [place] [address] Sriram Andrews MD 09/04/2025 11:40 AM EDTAncillary Procedure [facility] [address] [place] [address] Awareness of jrsnmcrafz24/28/2025Orders Only [facility] [address] [place] [address] Tori Whalen MD from Last 3 Months Social History Tobacco UseTypesPacks/DayYears UsedDateSmoking Tobacco: NeverSmokeless Tobacco: Never Tobacco Cessation:Counseling Given: No Alcohol UseStandard Drinks/WeekCommentsNot Currently0 (1 standard drink = 0.6 oz pure alcohol)CommentsNoSex and Gender InformationValueDate RecordedSex Assigned at ClpgyUiwljy09/09/2025 1:20 PM EDTLegal NknWldena86/04/2024 3:24 PM ESTGender IqornfvoXckyjy65/09/2025 1:20 PM EDTSexual OrientationHeterosexual or Dqzznbvk62/09/2025 1:20 PM EDT Last Filed Vital Signs Vital SignReadingTime TakenCommentsBlood Lsknolpk114/9605/25/2025 10:55 AM EDT Hhvqw722905/25/2025 10:55 AM EDTTemperature--Respiratory Vstc293011/02/2024 11:32 AM ESTOxygen Dalyjaqqlo09%05/25/2025 10:55 AM EDTInhaled Oxygen Concentration-- Qlbcgx80.9 kg (154 lb)05/25/2025 10:55 AM OKVSoydxt924 cm (5' 3 )05/25/2025 10:55 AM EDTBody Mass Index27.2807 10:55 AM EDT Plan of Treatment DateTypeDepartmentCare Team (Latest Contact Info)Neaodzdrxha37/21/2026 9:30 AM ESTOffice Visit [facility] [address] [place] [address] Shane Camacho MD [address] [place] [address] Health MaintenanceDue DateLast DoneCommentsCT Gvhtgzfigldh1967Colonoscopy 1965Colorectal Cancer Eloysyann1967FIT-DNA1967FIT1965 FOBT07/12/19672120Gsewdnnlkgpbi1967Depression Qeieuzbav06/04/1979Hepatitis B Vaccines (1 of 3 - 19+ 3-dose series)1986Pap Smear1988Adult Tetanus 1989Cervical Cancer Aaxvystzu12/04/1997HPV/Jguxdf7407/12/1997Mammogram 503COVID-19 Vaccine ( season)501/, 02/15/2021, 01/18/2021Influenza Vaccine (#1)512/, 09/10/2020, 08/08/2020, Additional history existsZoster NodmkesqYolqbhwwj38/03/2022, 10/28/2021HIB VaccinesAged OutNo longer eligible based on [...] ImplantedTypeAreaManufacturerDevice IdentifierShelf Expiration DateModel / Serial / LotMonitor,Cardiac,Lux,Dxii+[facility] - [id number] - [id number] Implanted:Qty: 1 on 11/02/2024 by [facility] CenterImplantable Loop RecorderLeft: Linda Juan01/19/2026 M312 / [id number] / Procedures Procedure NamePriorityDate/TimeAssociated DiagnosisCommentsCARDIAC DEVICE CHECK CHECK - EKELVGBdvfxew60/02/2025 5:17 PM EST Awareness of heartbeats CARDIAC DEVICE CHECK - REMOTE - LOOP RECORDER (ILR)Lqsqxam4410/08/2025 12:00 AM ESTCARDIAC DEVICE CHECK CHECK - GAUDUYReqcubx71/29/2025 10:22 AM EDT Awareness of heartbeats CARDIAC DEVICE CHECK - REMOTE - LOOP RECORDER (ILR)Xdiwjfi7209/04/2025 12:00 AM EDTfrom Last 3 Months Results * CARDIAC DEVICE CHECK - REMOTE - LOOP RECORDER (ILR) (10/09/2025 5:17 PM EST) Only the most recent of2 resultswithin the time period is included. Specimen (Source)Anatomical Location / LateralityCollection Method / Volume Collection TimeReceived Time Narrative Authorizing ProviderResult TypeResult StatusBlair Gen [facility] [place] C[facility]IAC DEVICE PROCEDURESFinal ResultPerforming OrganizationAddressCity/State/ZIP Code Phone Number CPACS * Cardiac device check - Remote loop recorder (ILR) (10/08/2025 12:00 AM EST) Only the most recent of2 resultswithin the time period is included. Anatomical RegionLateralityModalityOtherSpecimen (Source)Anatomical Location / LateralityCollection Method / VolumeCollection TimeReceived Time10/08/2025 Narrative Authorizing ProviderResult TypeResult StatusAbhisguillermo Andrews [facility] [place] C[place]IAC DEVICE PROCEDURESFinal Result from Last 3 Months Insurance Care Teams Team MemberRelationshipSpecialtyStart DateEnd Alan Wilson MD [address] [facility] [place] [place] [address] [facility] - Zmkcxhv48/4/24
--- OUTSIDE RECORDS SUMMARY | 2025-11-07 12:46 | XMS_ITS | Clinical Summary ---
Author Organization [facility] Address [address] [place] [id number] Care Team Providers Care Evidence Specialist Name Role Phone Alan Wilson MD Primary Care Provider [phone] Alan Wilson MD Unavailable [phone] Allergies Active AllergyReactionsCriticalityNoted EvxlLvirzwelCsihrzegKykjgic76/02/2021 Medications MedicationSigDispense QuantityRefillsLast FilledStart DateEnd DateStatus PARoxetine [...] without aura and without status migrainosus, not /13/2023Occipital neuralgia of left side01/23/2021 Nummular xaqewnrt66/18/2021xertional jxghzypz29/18/2021issection of carotid lifcyk5501/23/2021New onset rwsnxoix67/18/2021Meningioma Resolved Problems ProblemNoted DateDiagnosed DateResolved DatePrimary cough qutmietc40/18/2021 07/21/2023Thunderclap ioamxjmt46/New daily persistent headache / Social History Tobacco UseTypesPacks/DayYears UsedDateSmoking Tobacco: NeverSmokeless Tobacco: NeverPHQ-2AnswerDate RecordedPHQ-2 egxam160rea Deprivation IndexAnswer Date RecordedNational Score (1-100), lower number is lower mimi637507/21/2023State Score (1-10), lower number is lower ohdq55307/21/2023ata from: https://www.neighborhoodatlas.medicine.[facility].edu/. Last address used for [address] [place], [place] [address]/21/2023CommentsNoSex and Gender InformationValueDate RecordedSex Assigned at AamxpUhlfde33/18/2021 8:39 AM EDT Legal TunNbougv72/02/2012 9:44 AM ESTGender JbeesspiLqustr41/18/2021 8:39 AM EDT Sexual JwjyjtymtgfIwsmdewy62/18/2021 8:39 AM EDT Last Filed Vital Signs Vital SignReadingTime TakenCommentsBlood Zuwzzuto902/9409 12:02 PM EDT Xecfj6125 12:02 PM GIRKbhilzhaqdj42.8 ??C (98.2 ??F)01/07/2021 12:58 PM ESTRespiratory Gdvk475901/07/2021 12:58 PM ESTOxygen Nodlyjsgbd66%01/07/2021 12:58 PM ESTInhaled Oxygen Concentration--Prleto07.2 kg (157 lb)07/31/2021 12:02 PM IKFVywjwp444.2 cm (5' 3.47 )01/07/2021 12:58 PM ESTBody Mass Index27.41 01/07/2021 12:58 PM EST Plan of Treatment Health MaintenanceDue DateLast DoneCommentsAnxiety Xjscyjwzx69/04/1985Depression Afuqbqqdb23/04/1985HIV Fyyearpku26/04/1985Hepatitis C Ncqjnrtfj24/04/1985 Hepatitis B Vaccine (1 of 3 - 19+ 3-dose series)1986Cervical Cancer Blalnodne32/04/1988Mammogram Mwebqbexe04/04/2007CT Qwmffrylpjwb76/04/2012 Cologuard (FIT-DNA)07/12/20123175Dfvkablohaj32/04/2012Colorectal Cancer Screening 2012Diabetes Dmwborkqr50/04/2012Fecal Occult Blood2012Lipid Msfpxyzqx00/04/5656Ofdvahbwcwiwb11/04/2012Pneumococcal Vaccine: 50+ (1 of 1 - PCV)2017Covid-19 Vaccine (4 - 2024- season)501/, 02/15/2021, 01/18/2021Influenza Vaccine (#1)512/, 09/10/2020, 08/08/2020, Additional history existsDTaP,Tdap,Td Vaccine (2 - Tdap)02/22/2032 2RSV Vaccine (1 - 1-dose 75+ series)2042hingrix VaccineCompleted 01/08/2022, 10/28/2021 Insurance Care Teams Team MemberRelationshipSpecialtyStart Date Alan Wilson MD PCP - GeneralFamily Medicine01/01/21 Alan Wilson MD [facility]01/01/21
--- NOTE | 2025-11-07 12:47 | MR_ITS ---
The [address] [address] Patient Name: NIC CONROY MRN: [id number] date: 1965 Sex: F Assigned Patient Location: MRI Current Patient Location: MRI Accession/Order Number: [id number] Exam Date: 11/07/2025 13:00 Report Date: 11/07/2025 16:43 At the request of: BJ GAR MD Procedure: MR pelvis wo con MR pelvis wo con 11/07/2025 1:54 PM SIGNS AND SYMPTOMS: ^Sacro-iliac pain PROTOCOL: Multiplanar multisequence MR images of the pelvis without IV contrast COMPARISON: None FINDINGS: There is mild degenerative changes in the sacroiliac joints which appears to be chronic in nature. No significant marrow edema is noted to suggest acute sacroiliitis. The sacrum and coccyx are within normal limits. The symphysis pubis is within normal limits. The visualized hips are within normal limits. The visualized lower lumbar spine is within normal limits. Uncomplicated colonic diverticula are noted. The remaining pelvic viscera are within normal limits. The visualized sciatic nerves are within normal limits bilaterally. MR/MR pelvis wo con IMPRESSION: Chronic appearing degenerative changes are noted in the sacroiliac joints without evidence of acute sacroiliitis. Incidental note is made of uncomplicated colonic diverticula along the sigmoid colon. Impression dictated by: Shilo An M.D. 11/07/2025 4:43 PM Dictation Location: [facility] SoftwareDAYTON GENERAL HOSPITALPeerMe Electronically authenticated by: [id number] Y Date: 11/07/2025 16:43
== END 2025-11-07 12:44 | disposition home or self-care (01) ==
LOC: MRI 12:44
PROVIDERS: PCP Family Medicine; Visit Provider Family Medicine
DX: M53.3 Sacrococcygeal disorders, not elsewhere classified (principal)
CPT/HCPCS: 72195